=== PATIENT | male | born 1940 | race Caucasian/White ===

== ENCOUNTER 2017-01-20 13:10 | Inpatient (IN) | payer OTHER, MEDICARE ==
[~2017-01-20] VITALS: Ht 167.6 cm; Wt 97.1 kg
[2017-01-20] VITALS (11 sets, daily range): BP systolic 99–145; BP diastolic 55–84; PULSE 90–108; RESP 20–36; TEMP 98.2–98.7; O2SAT 90–99
[~2017-01-20 13:10] MED LIST: 1-ME1LIQ PO; ARIC5TAB PO; CITA20TA4 PO; HYDR-2768 PO; HYDR10TA23 PO; LEVO125T3 PO; LEXA10TA PO; LISI40TA PO; METF500 PO; NAME10TA PO; OMEP20TA39 PO; PRED10PA PO; SIMV20 PO; TAMS0.4C4; VITA20002 PO; [UNRECOGNIZED DRUG - CODE] PO
--- NOTE | 2017-01-20 13:39 | PD ---
HPI Chief Complaint: Respiratory Symptoms Time Seen by Provider: 13:25 Travel History International Travel<30 days: No Contact w/Intl Traveler<30days: No Traveled to known affect area: No History of Present Illness HPI 76-year-old male with history of COPD who presents with his for evaluation of wheezing, cough, shortness of breath. Symptoms started 1 week ago, gradually progressed since then. He is on prednisone chronically 5 mgBID with his primary care physician increased to 40 mg starting yesterday. He was also started on levofloxacin yesterday. His symptoms worsened today which prompted evaluation. He reports a cough with green sputum production. He denies chest pain, fevers or chills, recent travel, calf swelling, abdominal pain, nausea or vomiting. He uses a CPAP at night but is found himself wearing it for most of the day over the past week. He has no other complaints at this time. PFSH Past Medical History Asthma: Yes Anxiety: Yes Depression: Yes Cancer: No Cardiovascular Problems: No High Cholesterol: Yes Chemotherapy: No Chest Pain: Yes COPD: Yes (02 dependent and cpap machine ) Dementia: Yes Diabetes: Yes Patient Takes Glucophage: Yes (01/20/17 0900) Endocrine: No Genitourinary: No Hepatitis: No Hiatal Hernia: Yes Hypertension: Yes Immune Disorder: No Musculoskeletal: Yes (ARTHRITIS) Neurologic: Yes (DEMENTIA) Psychiatric: No Reproductive: No Respiratory: Yes (PULMONARY HTN) Radiation Therapy: No Thyroid Disease: Yes (HYPO) ?: Not Past Surgical History Abdominal Surgery: Yes (UMB. HERNIA REPAIR) AICD: No Eye Surgery: Yes (BILAT. CARARCT SX) Joint Replacement: No Oral Surgery: Yes (TONSILS) Pacemaker: No Tonsillectomy: Yes Other Surgery: Yes Social History Alcohol Use: Yes (OCC) Tobacco Use: No Substance Use: No Allergies-Medications (Allergen,Severity, Reaction): Coded Allergies: Penicillins (Verified Allergy, Unknown, 01/20/17) cephalexin (Verified Allergy, Unknown, 01/20/17) codeine (Unverified Allergy, Unknown, 01/20/17) Reported Meds & Prescriptions Reported Meds & Active Scripts Active Reported Lipitor (Atorvastatin Calcium) 20 Mg Tab 20 Mg PO HS Omeprazole 20 Mg Tab 20 Mg PO DAILY Celexa (Citalopram Hydrobromide) 20 Mg Tab 20 Mg PO DAILY Amlodipine (Amlodipine Besylate) 10 Mg Tab 10 Mg PO DAILY Aricept (Donepezil HCl) 5 Mg Tablet 5 Mg PO HS Lisinopril 40 Mg Tab 40 Mg PO DAILY Risperdal (Risperidone) 0.25 Mg Tab 0.25 Mg PO BID Tamsulosin (Tamsulosin HCl) 0.4 Mg Cap 0.4 Mg PO DAILY Take once a day 30 minutes after the same meal each day Loperamide Liq (Loperamide HCl) 1 Mg/7.5 Ml Liq 1 Mg PO PRN Namenda (Memantine) 10 Mg Tab 10 Mg PO BID Hydralazine HCl 10 Mg Tablet 10 Mg PO BID Hydrochlorothiazide 25 Mg Tab 25 Mg PO DAILY Ipratropium Neb (Ipratropium [place]) 0.5 Mg/2.5 Ml Amp 0.5 Mg NEB BID Claritin (Loratadine) 10 Mg Tablet 10 Mg PO DAILY Advair Diskus Inh (Fluticasone-Salmeterol Inh) 500-50 Mcg/Blist Aer 1 Puff INH BID Rinse mouth after use. Ventolin Hfa 18 GM Inh (Albuterol Sulfate) 90 Mcg/Act Aer 2 Puff INH Q4H PRN Levothyroxine (Levothyroxine Sodium) 112 Mcg Tab 112 Mcg PO DAILY Metformin (Metformin HCl) 500 Mg Tab 500 Mg PO DAILY With a meal Albuterol Neb (Albuterol Sulfate) 2.5 Mg/3 Ml Neb 2.5 Mg NEB QID PRN Tessalon Perles (Benzonatate) 100 Mg Cap 100 Mg PO TID PRN Levaquin (Levofloxacin) 500 Mg Tablet 500 Mg PO DAILY 10 Days Stop date: 01/29/2017 Prednisone 10 Mg Tab PO DAILY Titrating dose: 4 tabs (40mg) on days 1,2,3, then 3 tabs (30mg) on days 4,5,6 and then 1 tab twice a day Review of Systems Except as stated in HPI: all other systems reviewed are Neg Physical Exam Narrative GENERAL: This is a well-nourished male who appears acutely tachypneic, speaking in partial sentences. SKIN: Warm and dry. HEAD: Atraumatic. Normocephalic. EYES: Pupils equal and round. No scleral icterus. No injection or drainage. ENT: No nasal bleeding or discharge. Mucous membranes pink and moist. NECK: Trachea midline. No JVD. CARDIOVASCULAR: Regular rate and rhythm. No murmur appreciated. RESPIRATORY: Tachypneic, there is inspiratory and expiratory wheezing bilaterally with a prolonged expiratory phase. GASTROINTESTINAL: Abdomen soft, non-tender, nondistended. Hepatic and splenic margins not palpable. MUSCULOSKELETAL: No obvious deformities. No edema. NEUROLOGICAL: Awake and alert. No obvious cranial nerve deficits. Motor grossly within normal limits. Normal speech. PSYCHIATRIC: Appropriate mood and affect; insight and judgment normal. Data Data Last Documented VS Vital Signs Date Time Temp Pulse Resp B/P (MAP) Pulse Ox O2 Delivery O2 Flow Rate FiO2 01/20/17 15:12 99 100 01/20/17 15:06 97 30 145/84 (104) BiPAP 01/20/17 13:44 2.00 01/20/17 13:13 98.2 Orders Orders Electrocardiogram (01/20/17 ) Complete Blood Count With Diff (01/20/17 13:36) Comprehensive Metabolic Panel (01/20/17 13:36) B-Type Natriuretic Peptide (01/20/17 13:36) Act Partial Throm Time (Ptt) (01/20/17 13:36) Prothrombin Time / Inr (Pt) (01/20/17 13:36) Magnesium (Mg) (01/20/17 13:36) Ckmb (Isoenzyme) Profile (01/20/17 13:36) Troponin I (01/20/17 13:36) Iv Access Insert/Monitor (01/20/17 13:36) Electrocardiogram (01/20/17 13:36) Ecg Monitoring (01/20/17 13:36) Oximetry (01/20/17 13:36) Oxygen Administration (01/20/17 13:36) Chest, Single Ap (01/20/17 13:36) Sodium Chloride 0.9% Flush (Ns Flush) (01/20/17 13:45) Methylprednisolone So Succ Inj (Solumedr (01/20/17 13:45) Albuterol-Ipratropium Neb (Duoneb Neb) (01/20/17 13:45) Arterial Blood Gas (Abg) (01/20/17 13:39) Aztreonam Inj (Azactam Inj) (01/20/17 14:46) Levofloxacin 750 Mg Premix Inj (Levaquin (01/20/17 14:46) Resp Bipap / Cpap Non Invas Vt (01/20/17 14:49) Lactic Acid Sepsis Protocol (01/20/17 14:53) Blood Culture (01/20/17 14:53) Sodium Chlor 0.9% 1000 Ml Inj (Ns 1000 M (01/20/17 14:53) Admit Order (Ed Use Only) (01/20/17 15:36) Labs Laboratory Tests Test 01/20/17 13:45 01/20/17 13:50 01/20/17 15:00 White Blood Count 15.2 TH/MM3 Red Blood Count 5.28 MIL/MM3 Hemoglobin 15.0 GM/DL Hematocrit 45.8 % Mean Corpuscular Volume 86.8 FL Mean Corpuscular Hemoglobin 28.3 PG Mean Corpuscular Hemoglobin Concent 32.6 % Red Cell Distribution Width 14.3 % Platelet Count 359 TH/MM3 Mean Platelet Volume 7.7 FL Neutrophils (%) (Auto) 85.0 % Lymphocytes (%) (Auto) 8.6 % Monocytes (%) (Auto) 6.1 % Eosinophils (%) (Auto) 0.1 % Basophils (%) (Auto) 0.2 % Neutrophils # (Auto) 12.9 TH/MM3 Lymphocytes # (Auto) 1.3 TH/MM3 Monocytes # (Auto) 0.9 TH/MM3 Eosinophils # (Auto) 0.0 TH/MM3 Basophils # (Auto) 0.0 TH/MM3 CBC Comment AUTO DIFF Prothrombin Time 11.3 SEC Prothromb Time International Ratio 1.0 RATIO Activated Partial Thromboplast Time 25.1 SEC Blood Urea Nitrogen 24 MG/DL Creatinine 1.33 MG/DL Random Glucose 114 MG/DL Total Protein 6.9 GM/DL Albumin 2.9 GM/DL Calcium Level 9.3 MG/DL Magnesium Level 2.2 MG/DL Alkaline Phosphatase 83 U/L Aspartate Amino Transf (AST/SGOT) 15 U/L Alanine Aminotransferase (ALT/SGPT) 25 U/L Total Bilirubin 0.6 MG/DL Sodium Level 139 MEQ/L Potassium Level 3.4 MEQ/L Chloride Level 98 MEQ/L Carbon Dioxide Level 29.0 MEQ/L Anion Gap 12 MEQ/L Estimat Glomerular Filtration Rate 52 ML/MIN Total Creatine Kinase 40 U/L Troponin I LESS THAN 0.02 NG/ML B-Type Natriuretic Peptide 21 PG/ML Blood Gas Puncture Site RT RADIAL Blood Gas Patient Temperature 98.6 Blood Gas HCO3 24 mmol/L Blood Gas Base Excess 1.4 mmol/L Blood Gas Oxygen Saturation 92 % Arterial Blood pH 7.50 Arterial Blood Partial Pressure CO2 32 mmHg Arterial Blood Partial Pressure O2 63 mmHG Arterial Blood Oxygen Content 19.3 Vol % Arterial Blood Carboxyhemoglobin 1.4 % Arterial Blood Methemoglobin 0.6 % Blood Gas Hemoglobin 14.9 G/DL Oxygen Delivery Device NASAL CANNULA Blood Gas Liter Flow 2 L/M MDM Medical Decision Making Medical Screen Exam Complete: Yes Emergency Medical Condition: Yes Medical Record Reviewed: Yes Interpretation(s) EKG reveals sinus rhythm Chest x-ray CONCLUSION: Questionable airspace opacity in the right midlung zone. No other acute finding is identified. Suggest followup chest x-ray to confirm resolution or chest CT for further evaluation. Differential Diagnosis COPD exacerbation, pneumonia, pneumothorax, reactive airway disease, CHF, pulmonary edema, pleural effusion, acute coronary syndrome, pulmonary embolism Narrative Course 76-year-old male with history of COPD presents with one-week history of gradually worsening wheezing, shortness of breath, productive cough. On examination he has diffuse wheezing, prolonged expiratory phase, oxygen saturation 92% on 2 L of oxygen, tachypneic. The patient will be placed on ECG monitoring and pulse oximetry. A 12-lead EKG will be obtained. Plan is for basic labwork, ABG, chest x-ray. He'll be given 3 rounds of DuoNeb therapy, 125 mg IV Solu-Medrol. He will be monitored closely. Chest x-ray reveals opacity in the right midlung zone. The patient was given aztreonam, Levaquin to cover for community acquired pneumonia he is allergic to penicillin, Keflex. The patient had worsening dyspnea after DuoNeb therapy and therefore the patient is being started on BiPAP. Upon reexamination the patient feels significantly improved, his work of breathing is improved, oxygen saturation is 99%. The patient is being admitted , discussed with Dr. Colon who is agreeable. Procedures EKG Prior to Arrival: Yes Diagnosis Primary Impression: Community acquired pneumonia Qualified Codes: J18.1 - Lobar pneumonia, unspecified organism Additional Impression: COPD exacerbation Admitting Information Admitting Physician Requests: Admit Nando Manrique Jan 20, 2017 13:39
[2017-01-20] MEDS: RESP: ALBUTEROL 2.5 MG/IPRATROPIUM 0.5 MG NEB (SCH) INH ×3 (13:41→21:57)
[2017-01-20] MEDS ORDERED: SODIUM CHLORIDE 0.9% FLUSH 10 ML FLUSH IVF PRN (13:45)
[2017-01-20] MEDS ORDERED: methylPREDNISolone SOD SUCC 125 MG/2 ML VIAL IV PUSH ONE (13:45)
[2017-01-20] MEDS ORDERED: IPRA0.02 NEB (13:58)
[2017-01-20] MEDS ORDERED: AMLO10TA2 PO (13:58)
[2017-01-20] MEDS ORDERED: ALBU0.08 NEB (13:58)
[2017-01-20] MEDS ORDERED: RISP.25 PO (13:58)
[2017-01-20] MEDS ORDERED: LEVA500T20 PO (13:58)
[2017-01-20] MEDS ORDERED: LISI40TA PO (13:58)
[2017-01-20] MEDS ORDERED: CLAR10TA7 PO (13:58)
[2017-01-20] MEDS ORDERED: LIPI20TA PO (13:58)
[2017-01-20] MEDS ORDERED: HYDR-3798 PO (13:58)
[2017-01-20] MEDS ORDERED: BENZ100 PO (13:58)
[2017-01-20] MEDS ORDERED: OMEP20TA PO (13:58)
[2017-01-20] MEDS ORDERED: HYDR25TA5 PO (13:58)
[2017-01-20] MEDS ORDERED: VENTAER INH (13:58)
[2017-01-20] MEDS ORDERED: METF500T PO (13:58)
[2017-01-20] MEDS ORDERED: NAME10TA PO (13:58)
[2017-01-20] MEDS ORDERED: CELE20TA PO (13:58)
[2017-01-20] MEDS ORDERED: LEVO112T2 PO (13:58)
[2017-01-20] MEDS ORDERED: ADVA500A INH (13:58)
[2017-01-20] MEDS ORDERED: LOPE1SUS PO (13:58)
[2017-01-20] MEDS ORDERED: ARIC5TAB2 PO (13:58)
[2017-01-20] MEDS ORDERED: PRED10 PO (13:58)
[2017-01-20] MEDS ORDERED: TAMS0.4C4 PO (13:58)
[2017-01-20 14:02] LABS: BLOOD GAS BASE EXCESS 1.4 mmol/L (-2-2); BLOOD GAS CARBOXYHEMOGLOBIN 1.4 % (0-4); BLOOD GAS HCO3 24 mmol/L (22-26); BLOOD GAS METHEMOGLOBIN 0.6 % (0-2); BLOOD GAS O2 HGB SATURATION 92 % (90-100); BLOOD GAS OXYGEN CONTENT 19.3 Vol % (12.0-20.0); BLOOD GAS PCO2 32 mmHg (38-42); BLOOD GAS PO2 63 mmHG (61-120); BLOOD GAS TOTAL HGB 14.9 G/DL (12.0-16.0); CRITICAL VALUE NO; DRAW SITE RT RADIAL; LITER FLOW 2 L/M; NUMBER OF ARTERIAL PUNCTURES 1; OXYGEN DEVICE NASAL CANNULA; STAT YES; TEMP CORR TO 98.6; ULNAR PULSE PRESENT
[2017-01-20 14:15] LABS: AUTOMATED NEUTROPHIL # 12.9 TH/MM3 (1.8-7.7); BASOPHIL % 0.2 % (0.0-2.0); EOSINOPHIL % 0.1 % (0.0-4.0); HEMATOCRIT 45.8 % (39.0-51.0); LYMPH % 8.6 % (9.0-44.0); LYMPHOCYTE # 1.3 TH/MM3 (1.0-4.8); MEAN CELL VOLUME 86.8 FL (80.0-100.0); MEAN CORPUSCULAR HEMOGLOBIN 28.3 PG (27.0-34.0); MEAN CORPUSCULAR HGB CONC 32.6 % (32.0-36.0); MONO % 6.1 % (0.0-8.0); PLATELET COUNT 359 TH/MM3 (150-450); RED BLOOD COUNT 5.28 MIL/MM3 (4.50-5.90); RED CELL DISTRIBUTION WIDTH 14.3 % (11.6-17.2); WHITE BLOOD COUNT 15.2 TH/MM3 (4.0-11.0)
[2017-01-20 14:18] LABS: HEMO FLAGS AUTO DIFF
[2017-01-20 14:26] LABS: APTT (PATIENT) 25.1 SEC (24.3-30.1); PROTHROMBIN TIME - PATIENT 11.3 SEC (9.8-11.6)
--- NOTE | 2017-01-20 14:39 | RADRPT ---
EXAM DATE/TIME: 01/20/2017 13:49 [facility] COMPARISON: CHEST SINGLE AP, May 30, 2015, 18:59. INDICATIONS : Shortness of breath. MEDICAL HISTORY : Chronic obstructive pulmonary disease. SURGICAL HISTORY : None. ENCOUNTER: Initial ACUITY: 1 day PAIN SCORE: 0/10 LOCATION: Bilateral chest FINDINGS: Portable AP view of the chest demonstrates a normal-sized cardiac silhouette calcification of the aor ta. There is questionable airspace opacity in the right midlung zone. No effusion or pneumothorax is identified. The bones and soft tissues demonstrate no acute finding. CONCLUSION: Questionable airspace opacity in the right midlung zone. No other acute finding is identified. Sugges t followup chest x-ray to confirm resolution or chest CT for further evaluation. Ariel Julien MD on January 20, 2017 at 14:36 Board Certified Radiologist. This report was verified electronically.
[2017-01-20 14:43] LABS: ANION GAP 12 MEQ/L (5-15); AST (GOT) 15 U/L (15-37); BLOOD UREA NITROGEN 24 MG/DL (7-18); CHLORIDE 98 MEQ/L (98-107); GLOMERULAR FILTRATION RATE 52 ML/MIN (>89); MAGNESIUM 2.2 MG/DL (1.5-2.5); POTASSIUM 3.4 MEQ/L (3.5-5.1); SODIUM (NA) 139 MEQ/L (136-145)
[2017-01-20 14:44] LABS: ALT (GPT) 25 U/L (12-78)
[2017-01-20] MEDS ORDERED: LEVOFLOXACIN 750 MG PREMIX INJ 150 ML IV STA (14:46)
[2017-01-20] MEDS ORDERED: AZTREONAM INJ 2,000 MG in SODIUM CHLORIDE 0.9% INJ 100 ML IV STA (14:46)
[2017-01-20 14:48] LABS: ALKALINE PHOSPHATASE 83 U/L (45-117); TOTAL BILIRUBIN ADULT 0.6 MG/DL (0.2-1.0)
[2017-01-20 14:51] LABS: CREATINE KINASE 40 U/L (39-308)
[2017-01-20] MEDS ORDERED: SODIUM CHLOR 0.9% 1000 ML INJ 1,000 ML IV SCH ×2 (14:53→16:35)
--- NOTE | 2017-01-20 15:29 | PD ---
Data Data Last Documented VS Vital Signs Date Time Temp Pulse Resp B/P (MAP) Pulse Ox O2 Delivery O2 Flow Rate FiO2 01/20/17 15:12 99 100 01/20/17 15:06 97 30 145/84 (104) BiPAP 01/20/17 13:44 2.00 01/20/17 13:13 98.2 Orders Orders Electrocardiogram (01/20/17 ) Complete Blood Count With Diff (01/20/17 13:36) Comprehensive Metabolic Panel (01/20/17 13:36) B-Type Natriuretic Peptide (01/20/17 13:36) Act Partial Throm Time (Ptt) (01/20/17 13:36) Prothrombin Time / Inr (Pt) (01/20/17 13:36) Magnesium (Mg) (01/20/17 13:36) Ckmb (Isoenzyme) Profile (01/20/17 13:36) Troponin I (01/20/17 13:36) Iv Access Insert/Monitor (01/20/17 13:36) Electrocardiogram (01/20/17 13:36) Ecg Monitoring (01/20/17 13:36) Oximetry (01/20/17 13:36) Oxygen Administration (01/20/17 13:36) Chest, Single Ap (01/20/17 13:36) Sodium Chloride 0.9% Flush (Ns Flush) (01/20/17 13:45) Methylprednisolone So Succ Inj (Solumedr (01/20/17 13:45) Albuterol-Ipratropium Neb (Duoneb Neb) (01/20/17 13:45) Arterial Blood Gas (Abg) (01/20/17 13:39) Aztreonam Inj (Azactam Inj) (01/20/17 14:46) Levofloxacin 750 Mg Premix Inj (Levaquin (01/20/17 14:46) Resp Bipap / Cpap Non Invas Vt (01/20/17 14:49) Lactic Acid Sepsis Protocol (01/20/17 14:53) Blood Culture (01/20/17 14:53) Sodium Chlor 0.9% 1000 Ml Inj (Ns 1000 M (01/20/17 14:53) Labs Laboratory Tests Test 01/20/17 13:45 01/20/17 13:50 01/20/17 15:00 White Blood Count 15.2 TH/MM3 Red Blood Count 5.28 MIL/MM3 Hemoglobin 15.0 GM/DL Hematocrit 45.8 % Mean Corpuscular Volume 86.8 FL Mean Corpuscular Hemoglobin 28.3 PG Mean Corpuscular Hemoglobin Concent 32.6 % Red Cell Distribution Width 14.3 % Platelet Count 359 TH/MM3 Mean Platelet Volume 7.7 FL Neutrophils (%) (Auto) 85.0 % Lymphocytes (%) (Auto) 8.6 % Monocytes (%) (Auto) 6.1 % Eosinophils (%) (Auto) 0.1 % Basophils (%) (Auto) 0.2 % Neutrophils # (Auto) 12.9 TH/MM3 Lymphocytes # (Auto) 1.3 TH/MM3 Monocytes # (Auto) 0.9 TH/MM3 Eosinophils # (Auto) 0.0 TH/MM3 Basophils # (Auto) 0.0 TH/MM3 CBC Comment AUTO DIFF Prothrombin Time 11.3 SEC Prothromb Time International Ratio 1.0 RATIO Activated Partial Thromboplast Time 25.1 SEC Blood Urea Nitrogen 24 MG/DL Creatinine 1.33 MG/DL Random Glucose 114 MG/DL Total Protein 6.9 GM/DL Albumin 2.9 GM/DL Calcium Level 9.3 MG/DL Magnesium Level 2.2 MG/DL Alkaline Phosphatase 83 U/L Aspartate Amino Transf (AST/SGOT) 15 U/L Alanine Aminotransferase (ALT/SGPT) 25 U/L Total Bilirubin 0.6 MG/DL Sodium Level 139 MEQ/L Potassium Level 3.4 MEQ/L Chloride Level 98 MEQ/L Carbon Dioxide Level 29.0 MEQ/L Anion Gap 12 MEQ/L Estimat Glomerular Filtration Rate 52 ML/MIN Total Creatine Kinase 40 U/L Troponin I LESS THAN 0.02 NG/ML B-Type Natriuretic Peptide 21 PG/ML Blood Gas Puncture Site RT RADIAL Blood Gas Patient Temperature 98.6 Blood Gas HCO3 24 mmol/L Blood Gas Base Excess 1.4 mmol/L Blood Gas Oxygen Saturation 92 % Arterial Blood pH 7.50 Arterial Blood Partial Pressure CO2 32 mmHg Arterial Blood Partial Pressure O2 63 mmHG Arterial Blood Oxygen Content 19.3 Vol % Arterial Blood Carboxyhemoglobin 1.4 % Arterial Blood Methemoglobin 0.6 % Blood Gas Hemoglobin 14.9 G/DL Oxygen Delivery Device NASAL CANNULA Blood Gas Liter Flow 2 L/M [facility] Supervised Visit with HONEY: Yes Narrative Course The history, exam, and medical decision-making in the associated mid-level provider note were completed with my assistance. I reviewed and agree with the findings presented. I attest that I had a [id number] encounter with the patient on the same day, and personally performed and documented my assessment and findings in the medical record. *My assessment and Findings: 76-year-old man with COPD presents with worsening COPD symptoms unresolved despite his home treatments. He is on daily prednisone. Saw his doctor yesterday but on more prednisone and antibiotics. He uses BiPAP during C Pap at night, but she been using it during the day as well. Despite this is not improved second the emergency department today. Initial trial of medications was unsuccessful in alleviating his symptoms patient was placed on BiPAP. He looks much more comfortable on the BiPAP. Chest x-ray suggests pneumonia. Given antibiotics, steroids, breathing treatments, will be admitted to the ICU. Diagnosis Primary Impression: Community acquired pneumonia Qualified Codes: J18.1 - Lobar pneumonia, unspecified organism Additional Impression: COPD exacerbation Juan Ramon Fish MD Jan 20, 2017 15:29
[2017-01-20 15:54] LABS: BANDS 7 % (0-6); METAMYELOCYTES 3 % (0-1); MYELOCYTES 3 % (0-0); NEUTROPHIL # MANUAL DIFF 13.5 TH/MM3 (1.8-7.7); POLYS (SEG NEUTROPHILS) 76 % (16-70); WBC DIFF SAMPLE 100
[2017-01-20 15:56] LABS: OVALOCYTES 1+ (NORMAL); PLATELET ESTIMATE SMEAR NORMAL (NORMAL); PLATELET MORPHOLOGY ENLARGED (NORMAL)
[2017-01-20 15:57] LABS: SCAN/DIFF FINAL DIFF MANUAL
[2017-01-20] MEDS ORDERED: LORazepam 2 MG/ML VIAL IV PUSH ONE (16:15)
[2017-01-20 17:19] LABS: LACTIC ACID GHOST NOT REPORTABLE
[2017-01-20] MEDS ORDERED: MAGNESIUM HYDROXIDE SUSP 30 ML CUP PO PRN (18:00)
[2017-01-20] MEDS ORDERED: ACETAMINOPHEN 325 MG TAB PO PRN (18:00)
[2017-01-20] MEDS ORDERED: SENNOSIDES 8.6 MG TAB PO PRN (18:00)
[2017-01-20] MEDS ORDERED: LACTULOSE SYRUP 20 GM/30 ML CUP PO PRN (18:00)
[2017-01-20] MEDS ORDERED: GLUCAGON 1 MG/ML VIAL OTHER PRN (18:00)
[2017-01-20] MEDS ORDERED: MISCELLANEOUS NURSING INFORMATION XX SCH (18:00)
[2017-01-20] MEDS ORDERED: CHLORHEXIDINE GLUCONATE 2 % 1 PACK (2 CLOTHS) TOP PRN (18:00)
[2017-01-20] MEDS ORDERED: RESP: ALBUTEROL 2.5 MG/IPRATROPIUM 0.5 MG NEB (PRN) INH (18:00)
[2017-01-20] MEDS ORDERED: ONDANSETRON HCL 4 MG/2 ML VIAL IV PUSH PRN (18:00)
[2017-01-20] MEDS ORDERED: BISACODYL 10 MG SUPP RECTAL PRN (18:00)
[2017-01-20] MEDS ORDERED: SODIUM CHLORIDE 0.9% FLUSH 10 ML FLUSH IV FLUSH PRN (18:00)
[2017-01-20] MEDS ORDERED: DEXTROSE 50% IN WATER 50 ML VIAL(D50) IV PUSH PRN (18:00)
--- NOTE | 2017-01-20 18:55 | HHI.HP ---
[facility] Service Critical Care Medicine Primary Care Physician Tanya Medina Do, MD Admission Diagnosis COPD exacerbation, pneumonia Diagnosis: Travel History International Travel<30 Days: No Contact w/Intl Traveler <30 Da: No Traveled to Known Affected Are: No History of Present Illness This is a 76-year-old obese male with history of COPD who presents with his for evaluation of wheezing, cough, shortness of breath. The symptoms started 1 week ago, gradually progressed since then. 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 He is on prednisone chronically 5 mg BID with his primary care physician increased to 40 mg starting yesterday. He was also started on levofloxacin yesterday. His symptoms worsened today which prompted evaluation. He reports a cough with green sputum production. He denies chest pain, fevers or chills, recent travel, calf swelling, abdominal pain, nausea or vomiting. He uses a CPAP at night but is found himself wearing it for most of the day over the past week. He also utilizes home O2 @2LPM when necessary. In the ED the patient received antibiotics that she is a male, and levofloxacin, and was maintained on BiPAP at 100% which is currently being wean down to 40%. The patient has a medical history significant for dementia, and patient's spouse provided medical history. Critical care medicine was consulted. PFSH Past Medical History Asthma: Yes Anxiety: Yes Depression: Yes Cancer: No Cardiovascular Problems: No High Cholesterol: Yes Chemotherapy: No Chest Pain: Yes COPD: Yes (02 dependent and cpap machine ) Dementia: Yes Diabetes: Yes Patient Takes Glucophage: Yes (01/20/17 0900) Endocrine: No Genitourinary: No Hepatitis: No Hiatal Hernia: Yes Hypertension: Yes Immune Disorder: No Musculoskeletal: Yes (ARTHRITIS) Neurologic: Yes (DEMENTIA) Psychiatric: No Reproductive: No Respiratory: Yes (PULMONARY HTN) Radiation Therapy: No Thyroid Disease: Yes (HYPO) ?: Not Past Surgical History Abdominal Surgery: Yes (UMB. HERNIA REPAIR) AICD: No Eye Surgery: Yes (BILAT. CARARCT SX) Joint Replacement: No Oral Surgery: Yes (TONSILS) Pacemaker: No Tonsillectomy: Yes Other Surgery: Yes Social History Alcohol Use: Yes (OCC) Tobacco Use: No Substance Use: No Allergies-Medications (Allergen,Severity, Reaction): Coded Allergies: Penicillins (Verified Allergy, Unknown, 01/20/17) cephalexin (Verified Allergy, Unknown, 01/20/17) codeine (Unverified Allergy, Unknown, 01/20/17) Reported Meds & Prescriptions Reported Meds & Active Scripts Active Reported Lipitor (Atorvastatin Calcium) 20 Mg Tab 20 Mg PO HS Omeprazole 20 Mg Tab 20 Mg PO DAILY Celexa (Citalopram Hydrobromide) 20 Mg Tab 20 Mg PO DAILY Amlodipine (Amlodipine Besylate) 10 Mg Tab 10 Mg PO DAILY Aricept (Donepezil HCl) 5 Mg Tablet 5 Mg PO HS Lisinopril 40 Mg Tab 40 Mg PO DAILY Risperdal (Risperidone) 0.25 Mg Tab 0.25 Mg PO BID Tamsulosin (Tamsulosin HCl) 0.4 Mg Cap 0.4 Mg PO DAILY Take once a day 30 minutes after the same meal each day Loperamide Liq (Loperamide HCl) 1 Mg/7.5 Ml Liq 1 Mg PO PRN Namenda (Memantine) 10 Mg Tab 10 Mg PO BID Hydralazine HCl 10 Mg Tablet 10 Mg PO BID Hydrochlorothiazide 25 Mg Tab 25 Mg PO DAILY Ipratropium Neb (Ipratropium [place]) 0.5 Mg/2.5 Ml Amp 0.5 Mg NEB BID Claritin (Loratadine) 10 Mg Tablet 10 Mg PO DAILY Advair Diskus Inh (Fluticasone-Salmeterol Inh) 500-50 Mcg/Blist Aer 1 Puff INH BID Rinse mouth after use. Ventolin Hfa 18 GM Inh (Albuterol Sulfate) 90 Mcg/Act Aer 2 Puff INH Q4H PRN Levothyroxine (Levothyroxine Sodium) 112 Mcg Tab 112 Mcg PO DAILY Metformin (Metformin HCl) 500 Mg Tab 500 Mg PO DAILY With a meal Albuterol Neb (Albuterol Sulfate) 2.5 Mg/3 Ml Neb 2.5 Mg NEB QID PRN Tessalon Perles (Benzonatate) 100 Mg Cap 100 Mg PO TID PRN Levaquin (Levofloxacin) 500 Mg Tablet 500 Mg PO DAILY 10 Days Stop date: 01/29/2017 Prednisone 10 Mg Tab PO DAILY Titrating dose: 4 tabs (40mg) on days 1,2,3, then 3 tabs (30mg) on days 4,5,6 and then 1 tab twice a day Review of Systems Except as stated in HPI: all other systems reviewed are Neg Past Family Social History Allergies: Coded Allergies: Penicillins (Verified Allergy, Unknown, 01/20/17) cephalexin (Verified Allergy, Unknown, 01/20/17) codeine (Unverified Allergy, Unknown, 01/20/17) Uncoded Allergies: DIFFICULT AIRWAY (Adverse Reaction, Severe, 01/20/17) Physical Exam Vital Signs Vital Signs Date Time Temp Pulse Resp B/P (MAP) Pulse Ox O2 Delivery O2 Flow Rate FiO2 01/20/17 16:48 97 BiPAP 50 01/20/17 16:26 97 26 131/60 (83) 98 BiPAP 60 01/20/17 15:12 99 100 01/20/17 15:06 97 30 145/84 (104) BiPAP 100 01/20/17 13:44 93 Nasal Cannula 2.00 01/20/17 13:38 92 Nasal Cannula 2.00 01/20/17 13:25 92 Nasal Cannula 2.00 01/20/17 13:21 87 Room Air 01/20/17 13:13 98.2 108 36 99/55 (70) 90 Room Air Physical Exam GENERAL: Obese elderly male gentleman, in mild distress. On BiPAP, with a respiratory rate currently at 28. SKIN: Warm and dry. HEAD: Atraumatic. Normocephalic. EYES: Pupils equal and round. No scleral icterus. No injection or drainage. ENT: No nasal bleeding or discharge. Mucous membranes pink and moist. Uvula midline. Mallampati class IV NECK: Trachea midline. No JVD. CARDIOVASCULAR: Normal rate, regular rhythm. RESPIRATORY: No accessory muscle use. Clear to auscultation. Breath sounds equal bilaterally. Currently on BiPAP 04/06 GASTROINTESTINAL: Abdomen soft, protuberant, non-tender, nondistended. No guarding. Normoactive bowel sounds MUSCULOSKELETAL: Extremities without clubbing, cyanosis, or edema. No obvious deformities. Ultimate goal ecchymotic bruises noted bilateral upper extremities NEUROLOGICAL: GCS 14 .Awake and alert. Confused. RASS 0. No gross focal/ sensory deficits. Follows commands in all 4 extremities. Laboratory Laboratory Tests Test 01/20/17 13:45 01/20/17 13:50 01/20/17 15:00 01/20/17 17:20 White Blood Count 15.2 Red Blood Count 5.28 Hemoglobin 15.0 Hematocrit 45.8 Mean Corpuscular Volume 86.8 Mean Corpuscular Hemoglobin 28.3 Mean Corpuscular Hemoglobin Concent 32.6 Red Cell Distribution Width 14.3 Platelet Count 359 Mean Platelet Volume 7.7 Neutrophils (%) (Auto) 85.0 Lymphocytes (%) (Auto) 8.6 Monocytes (%) (Auto) 6.1 Eosinophils (%) (Auto) 0.1 Basophils (%) (Auto) 0.2 Neutrophils # (Auto) 12.9 Lymphocytes # (Auto) 1.3 Monocytes # (Auto) 0.9 Eosinophils # (Auto) 0.0 Basophils # (Auto) 0.0 CBC Comment AUTO DIFF Differential Total Cells Counted 100 Neutrophils % (Manual) 76 Band Neutrophils % 7 Lymphocytes % 8 Monocytes % 3 Neutrophils # (Manual) 13.5 Metamyelocytes 3 Myelocytes 3 Differential Comment FINAL DIFF MANUAL Atypical Lymphocytes Platelet Estimate NORMAL Platelet Morphology Comment ENLARGED Ovalocytes 1+ Prothrombin Time 11.3 Prothromb Time International Ratio 1.0 Activated Partial Thromboplast Time 25.1 Blood Urea Nitrogen 24 Creatinine 1.33 Random Glucose 114 Total Protein 6.9 Albumin 2.9 Calcium Level 9.3 Magnesium Level 2.2 Alkaline Phosphatase 83 Aspartate Amino Transf (AST/SGOT) 15 Alanine Aminotransferase (ALT/SGPT) 25 Total Bilirubin 0.6 Sodium Level 139 Potassium Level 3.4 Chloride Level 98 Carbon Dioxide Level 29.0 Anion Gap 12 Estimat Glomerular Filtration Rate 52 Total Creatine Kinase 40 Troponin I LESS THAN 0.02 B-Type Natriuretic Peptide 21 Blood Gas Puncture Site RT RADIAL Blood Gas Patient Temperature 98.6 Blood Gas HCO3 24 Blood Gas Base Excess 1.4 Blood Gas Oxygen Saturation 92 Arterial Blood pH 7.50 Arterial Blood Partial Pressure CO2 32 Arterial Blood Partial Pressure O2 63 Arterial Blood Oxygen Content 19.3 Arterial Blood Carboxyhemoglobin 1.4 Arterial Blood Methemoglobin 0.6 Blood Gas Hemoglobin 14.9 Oxygen Delivery Device NASAL CANNULA Blood Gas Liter Flow 2 Lactic Acid Level 7.3 Date/Time Source Procedure Growth Status 01/20/17 15:05 Blood Peripheral Aerobic Blood Culture Pending Received 01/20/17 15:05 Blood Peripheral Anaerobic Blood Culture Pending Received Result Diagram: 01/20/17 1345 01/20/17 1345 Imaging Last Impressions Chest X-Ray 01/20/17 1336 Signed Impressions: Service Date/Time: Friday, January 20, 2017 13:49 - CONCLUSION: Questionable airspace opacity in the right midlung zone. No other acute finding is identified. Suggest followup chest x-ray to confirm resolution or chest CT for further evaluation. Ariel Julien MD Septic Shock Reassessment Heart: Regular rate and rhythm Lungs: Diminished Skin: Warm Peripheral Pulses: Bounding Right Radial Bounding Left Radial Capillary Refill: Brisk Caprini VTE Risk Assessment Caprini VTE Risk Assessment: No/Low Risk (score <= 1) Caprini Risk Assessment Model Point Value = 1 Point Value = 2 Point Value = 3 Point Value = 5 Age 41-60 Minor surgery BMI > 25 kg/m2 Swollen legs Varicose veins or History of unexplained or recurrent spontaneous Oral contraceptives or hormone replacement Sepsis (< 1 month) Serious lung disease, including pneumonia (< 1 month) Abnormal pulmonary function Acute myocardial infarction Congestive heart failure (< 1 month) History of inflammatory bowel disease Medical patient at bed rest Age 61-74 Arthroscopic surgery Major open surgery (> 45 min) Laparoscopic surgery (> 45 min) Malignancy Confined to bed (> 72 hours) Immobilizing plaster cast Central venous access Age >= 75 History of VTE Family history of VTE Factor V Leiden Prothrombin [id number] Lupus anticoagulant Anticardiolipin antibodies Elevated serum homocysteine Heparin-induced thrombocytopenia Other congenital or acquired thrombophilia Stroke (< 1 month) Elective arthroplasty Hip, pelvis, or leg fracture Acute spinal cord injury (< 1 month) Prophylaxis Regimen Total Risk Factor Score Risk Level Prophylaxis Regimen 0-1 Low Early ambulation 2 Moderate Order ONE of the following: *Sequential Compression Device (SCD) *Heparin 5000 units SQ BID 3-4 Higher Order ONE of the following medications: *Heparin 5000 units SQ TID *Enoxaparin/Lovenox 40 mg SQ daily (WT < 150 kg, CrCl > 30 mL/min) *Enoxaparin/Lovenox 30 mg SQ daily (WT < 150 kg, CrCl > 10-29 mL/min) *Enoxaparin/Lovenox 30 mg SQ BID (WT < 150 kg, CrCl > 30 mL/min) AND/OR *Sequential Compression Device (SCD) 5 or more Highest Order ONE of the following medications: *Heparin 5000 units SQ TID (Preferred with Epidurals) *Enoxaparin/Lovenox 40 mg SQ daily (WT < 150 kg, CrCl > 30 mL/min) *Enoxaparin/Lovenox 30 mg SQ daily (WT < 150 kg, CrCl > 10-29 mL/min) *Enoxaparin/Lovenox 30 mg SQ BID (WT < 150 kg, CrCl > 30 mL/min) AND *Sequential Compression Device (SCD) Assessment and Plan Assessment and Plan Plan by systems: Neurologic: Alzheimer's Dementia Parkinsonian symptoms Depressive disorder Diabetic polyneuropathy Neurochecks per ICU protocol Document fall risk Continue Aricept,Memantine,and Risperidal- home medications Will hold Citalopram for now Avoid all sedative type medications Tylenol 650 mg every 6 hours for pain scale 1-10 Respiratory: COPD exacerbation Pulmonary hypertension Home O2 dependency Community-acquired pneumonia NAI Maintain O2 sat greater than 92%.-Currently on BiPAP 12/5 FiO2 40%. CO2 32, PaO2 on 2 LPM N/C 63 Repeat Abg on BIPAP 01/20 chest x-ray airspace opacity right midlung zone Methylprednisolone 40 mg twice a day Continue Tessalon Pearls PRN Duo nebs every 6 hours scheduled, every 2 hours when necessary Patient has known difficult airway access, family has been instructed that if emergent intubation is required the possibility of emergency tracheostomy may occur Cardiovascular: Hypertension Dyslipidemia Maintain MAP greater than 65mmHg Will hold patient antihypertensive meds at this time, will resume when clinically indicated Continue atorvastatin Renal: BPH Continue patient's home medication Tamulosin -- Strict I/Os FEN/GI: Gentle hydration- Normal saline 42 cc/hour Nothing by mouth for now-on BiPAP and possible intubation may be required Bowel regimen Zofran for nausea Protonix GI prophylaxis Heme/ID: Community acquired pneumonia Leukocytosis Patient received in the ED , Atrezonam and Levaquin, bolused 1 L normal saline Initial lactic acid 7.3 Trend lactic acid Continue antibiotics Atrezonam and Levaquin Endocrine: Hypothyroidism Diabetes mellitus Continue levothyroxine 112 mcg patient's home dose Glucose monitoring per ICU protocol, low dose regimen -- SSI Prophylaxis: GI Prophylaxis Protonix DVT Prophylaxis -- SCDs Heparin 5000u BID Lines: Peripheral IVs providing adequate access Dispo: This patient remains critically ill with one or more organ systems which are or may become a threat to life. I have spent in excess of 30 minutes discontinuously in the care and management of this patient. This time is exclusive of procedures, and includes, but is not limited to, evaluation of the patient, review of the medical record, discussions with family, consultants, nursing staff, or respiratory therapy, and documentation in the medical record. Code Status Full Discussed Condition With Family, Dr. Fish, [employer] at bedside Mahsa Rodgers MD Jan 20, 2017 18:55
[2017-01-20] MEDS: HEPARIN SODIUM - SQ 10,000 UNITS/ML VIAL SQ SCH (19:49)
[2017-01-20] MEDS: SODIUM CHLORIDE 0.9% FLUSH 10 ML FLUSH IV FLUSH SCH (19:50)
[2017-01-20] MEDS: methylPREDNISolone SOD SUCC 40 MG/1 ML VIAL IV PUSH SCH (19:50)
[2017-01-20] MEDS: DOCUSATE SODIUM 50 MG/SENNA 8.6 MG TAB PO SCH (19:51)
[2017-01-20 19:59] LABS: BLOOD GAS BASE EXCESS 2.1 mmol/L (-2-2); BLOOD GAS CARBOXYHEMOGLOBIN 1.3 % (0-4); BLOOD GAS HCO3 25 mmol/L (22-26); BLOOD GAS METHEMOGLOBIN 1.2 % (0-2); BLOOD GAS O2 HGB SATURATION 93 % (90-100); BLOOD GAS OXYGEN CONTENT 18.6 Vol % (12.0-20.0); BLOOD GAS PCO2 35 mmHg (38-42); BLOOD GAS PO2 71 mmHg (61-120); BLOOD GAS TOTAL HGB 14.3 G/DL (12.0-16.0); CRITICAL VALUE NO; DRAW SITE RT RADIAL; LITER FLOW 4 L/M; NUMBER OF ARTERIAL PUNCTURES 1; OXYGEN DEVICE NASAL CANNULA; STAT YES; TEMP CORR TO 98.6; ULNAR PULSE PRESENT
[2017-01-20] MEDS: SODIUM CHLOR 0.9% 1000 ML INJ 1,000 ML IV SCH (20:09)
[2017-01-20] MEDS: INSULIN ASPART SUPPLEMENTAL SCALE SQ SCH (21:00)
[2017-01-20] MEDS: BUDESONIDE-FORMOTEROL 160/4.5 MCG INHALER INH SCH (21:15)
[2017-01-20] MEDS: risperiDONE 0.25 MG TAB PO SCH (21:16)
[2017-01-20] MEDS: DONEPEZIL HCL 5 MG TAB PO SCH (21:16)
[2017-01-20] MEDS: ATORVASTATIN 20 MG TAB PO SCH (21:17)
[2017-01-20] MEDS: MEMANTINE HCL 10 MG TAB PO SCH (21:17)
--- NOTE | 2017-01-20 21:19 | MB ---
cc: PAM TORRE DATE OF CONSULTATION: 01/20/2017 REQUESTING PHYSICIAN: Dr. Rodgers. REASON FOR CONSULTATION: HISTORY OF PRESENT ILLNESS: Mr. Lee is a pleasant 76 year-old male who is known to me from the office with a history of COPD, oxygen dependent. He uses C-PAP machine at home. He has some dementia. The patient was being maintained on oral prednisone 5 milligrams a day over the last week. His shortness of breath is getting worse. He has wheezing, cough, small amount of sputum production. No fevers or chills. He was seen by his primary care physician and was started on prednisone and antibiotics. He did not get better. He decided to come to the emergency room. The patient was seen by Dr. Rodgers. LABORATORY DATA: His blood gas showed pH 7.50, PCO2 32, O2 on two liters nasal cannula. WBC count 15.2, hemoglobin 15,000, hematocrit 45.8, MCV 86.8, MCH 28.3, MCHC 32.6, platelet count 359. Sodium 139, potassium 3.4, chloride 98, CO2 29, anion gap 12, BUN 24, creatinine 1.33. IMAGING STUDIES: Chest x-ray shows air space opacity in the right mid lung. PAST MEDICAL HISTORY: History of COPD, obstructive sleep apnea, dementia, hypertension, hiatal hernia, hypercholesterolemia. PAST SURGICAL HISTORY: Hiatal hernia surgery. MEDICATIONS: Levaquin 750 milligrams. Protonix 40 milligrams Levothyroxine 112 mcg a day. Flomax 0.4 milligrams a day. Aztreonam 2 grams q8 hours. Albuterol and atrovent nebulizer treatments. Solu-Medrol 40 milligrams q12 hours. Loratadine 10 mg twice a day. Risperidone 0.25 milligrams twice a day. Lipitor 20 milligrams at night time. Benzonatate 100 milligrams 3x a day. Heparin 5000 q12 hours. ALLERGIES CEPHALEXIN AND CODEINE SOCIAL HISTORY He is . History of smoking in the past. FAMILY HISTORY: Noncontributory. REVIEW OF SYSTEMS: He uses C-PAP machine and oxygen at night time. No DVT. PHYSICAL EXAMINATION: An obese male, mild short of breath. VITAL SIGNS: Blood pressure 132/61, heart rate 90, respiratory rate 22. HEENT: Pupils are equal and reactive to light, oral mucosa, nasal mucosa normal. NECK: JVP not raised. CHEST: He has distant breath sounds, mild wheezing. ABDOMEN: Obese, nontender. Bowel sounds present. EXTREMITIES: No edema. IMPRESSION COPD with exacerbation. Lung infiltrate. Dementia. Parkinson's disease. Obstructive sleep apnea. PLAN: I discussed with the patient, will continue with antibiotics, aerosol treatment with Albuterol and atrovent, IV Solu-Medrol. He will use C-PAP at nighttime. Oxygen to keep the saturation greater than 90%. Further treatment will depend on the course in the hospital. Thank you, Dr. Rodgers, for this consult. Pam Torre MD ADA/AMADOR /7:54 PM /8:36 PM
--- NOTE | 2017-01-20 23:46 | EKG ---
Date Performed: 01/20/2017 Time Performed: 13:32:32 PTAGE: 76 years EKG: Sinus rhythm LOW QRS VOLTAGE IN PRECORDIAL LEADS POSSIBLE RIGHT VENTRICULAR CONDUCTION DELAY PROBABLE INFERIOR MY OCARDIAL INFARCTION ABNORMAL ECG PREVIOUS TRACING : 01/20/2017 13.31 Compared to the previous tracing, now in sinus rhythm DOCTOR: Payam Garcia Interpretating Date/Time 01/20/2017 23:44:50
[2017-01-21] VITALS (17 sets, daily range): BP systolic 135–160; BP diastolic 63–77; PULSE 69–103; RESP 22–28; TEMP 98–98.6; O2SAT 92–95
[2017-01-21] MEDS: CHLORHEXIDINE GLUCONATE 2 % 1 PACK (2 CLOTHS) TOP SCH (01:11)
[2017-01-21] MEDS: AZTREONAM INJ 2,000 MG in SODIUM CHLORIDE 0.9% INJ 100 ML IV SCH ×4 (01:11→23:25)
[2017-01-21] MEDS: RESP: ALBUTEROL 2.5 MG/IPRATROPIUM 0.5 MG NEB (SCH) INH ×4 (04:02→21:05)
[2017-01-21] MEDS: HEPARIN SODIUM - SQ 10,000 UNITS/ML VIAL SQ SCH ×2 (04:45→17:17)
[2017-01-21] MEDS: LEVOTHYROXINE SODIUM 112 MCG TAB PO SCH (04:45)
--- NOTE | 2017-01-21 05:01 | RADRPT ---
EXAM DATE/TIME: 01/21/2017 04:01 [place] COMPARISON: CHEST SINGLE AP, January 20, 2017, 13:49. INDICATIONS : Shortness of breath, possible pulmonary disease. MEDICAL HISTORY : Chronic obstructive pulmonary disease. SURGICAL HISTORY : None. ENCOUNTER: Subsequent ACUITY: 2 days PAIN SCORE: 0/10 LOCATION: Bilateral chest FINDINGS: A single portable frontal view of the chest shows hypoinflation with mild atelectasis within the left base. No infiltrates or effusions. Heart is normal in size. Bony structures are unremarkable. CONCLUSION: Hypoinflation with mild left basilar atelectasis. No infiltrate. Germán Sewell Jr., MD on January 21, 2017 at 4:58 Board Certified Radiologist. This report was verified electronically.
[2017-01-21 05:07] LABS: HEMATOCRIT 41.6 % (39.0-51.0); MEAN CELL VOLUME 85.9 FL (80.0-100.0); MEAN CORPUSCULAR HEMOGLOBIN 28.1 PG (27.0-34.0); MEAN CORPUSCULAR HGB CONC 32.8 % (32.0-36.0); PLATELET COUNT 302 TH/MM3 (150-450); RED BLOOD COUNT 4.85 MIL/MM3 (4.50-5.90); RED CELL DISTRIBUTION WIDTH 14.1 % (11.6-17.2); REVIEW FLAG FINAL; WHITE BLOOD COUNT 14.1 TH/MM3 (4.0-11.0)
[2017-01-21 05:28] LABS: BLOOD GAS BASE EXCESS 3.3 mmol/L (-2-2); BLOOD GAS CARBOXYHEMOGLOBIN 1.3 % (0-4); BLOOD GAS HCO3 27 mmol/L (22-26); BLOOD GAS METHEMOGLOBIN 1.3 % (0-2); BLOOD GAS O2 HGB SATURATION 91 % (90-100); BLOOD GAS OXYGEN CONTENT 18.3 Vol % (12.0-20.0); BLOOD GAS PCO2 36 mmHg (38-42); BLOOD GAS PO2 66 mmHg (61-120); BLOOD GAS TOTAL HGB 14.2 G/DL (12.0-16.0); TEMP CORR TO 98.6
[2017-01-21 05:29] LABS: CRITICAL VALUE NO; DRAW SITE LT RADIAL; LITER FLOW 4 L/M; NUMBER OF ARTERIAL PUNCTURES 1; OXYGEN DEVICE NASAL CANNULA; STAT NO; ULNAR PULSE PRESENT
[2017-01-21 07:13] LABS: BICARBONATE 25.7 MEQ/L (21.0-32.0); MAGNESIUM 2.3 MG/DL (1.5-2.5); POTASSIUM 3.4 MEQ/L (3.5-5.1)
[2017-01-21] MEDS: INSULIN ASPART SUPPLEMENTAL SCALE SQ SCH ×4 (08:00→21:00)
--- NOTE | 2017-01-21 09:03 | HHI.CCPN ---
Subjective Remarks/Hospital Course This is a 76-year-old obese male with history of COPD who presents with his for evaluation of wheezing, cough, shortness of breath. The symptoms started 1 week ago, gradually progressed since then. 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 He is on prednisone chronically 5 mg BID with his primary care physician increased to 40 mg starting yesterday. He was also started on levofloxacin yesterday. His symptoms worsened today which prompted evaluation. He reports a cough with green sputum production. He denies chest pain, fevers or chills, recent travel, calf swelling, abdominal pain, nausea or vomiting. He uses a CPAP at night but is found himself wearing it for most of the day over the past week. He also utilizes home O2 @2LPM when necessary. In the ED the patient received antibiotics that she is a male, and levofloxacin, and was maintained on BiPAP at 100% which is currently being wean down to 40%. The patient has a medical history significant for dementia, and patient's spouse provided medical history. Critical care medicine was consulted. Subjective: 01/21: No acute events overnight. The patient has been weaned to oxygen at 4 L nasal cannula, no dyspneic episodes. O2 saturation greater than 92% throughout the night. Discussion with family, to include , CODE STATUS changed to DNR. Objective Vital Signs Date Time Temp Pulse Resp B/P (MAP) Pulse Ox O2 Delivery O2 Flow Rate FiO2 01/21/17 08:13 95 Nasal Cannula 4.00 01/21/17 06:00 78 24 147/69 (95) 01/21/17 04:00 98.6 01/20/17 22:00 40 Intake and Output 01/21/17 01/21/17 01/22/17 08:00 16:00 00:00 Intake Total 100 ml Balance 100 ml Result Diagram: 01/21/17 0415 01/21/17 0415 Other Results Laboratory Tests Test 01/20/17 13:50 01/20/17 19:50 01/21/17 05:02 Blood Gas Puncture Site RT RADIAL RT RADIAL LT RADIAL Blood Gas Patient Temperature 98.6 98.6 98.6 Blood Gas HCO3 24 mmol/L (22-26) 25 mmol/L (22-26) 27 mmol/L (22-26) Blood Gas Base Excess 1.4 mmol/L (-2-2) 2.1 mmol/L (-2-2) 3.3 mmol/L (-2-2) Blood Gas Oxygen Saturation 92 % (90-100) 93 % (90-100) 91 % (90-100) Arterial Blood pH 7.50 (7.380-7.420) 7.48 (7.380-7.420) 7.48 (7.380-7.420) Arterial Blood Partial Pressure CO2 32 mmHg (38-42) 35 mmHg (38-42) 36 mmHg (38-42) Arterial Blood Partial Pressure O2 63 mmHG (61-120) 71 mmHg (61-120) 66 mmHg (61-120) Arterial Blood Oxygen Content 19.3 Vol % (12.0-20.0) 18.6 Vol % (12.0-20.0) 18.3 Vol % (12.0-20.0) Arterial Blood Carboxyhemoglobin 1.4 % (0-4) 1.3 % (0-4) 1.3 % (0-4) Arterial Blood Methemoglobin 0.6 % (0-2) 1.2 % (0-2) 1.3 % (0-2) Blood Gas Hemoglobin 14.9 G/DL (12.0-16.0) 14.3 G/DL (12.0-16.0) 14.2 G/DL (12.0-16.0) Oxygen Delivery Device NASAL CANNULA NASAL CANNULA NASAL CANNULA Blood Gas Liter Flow 2 L/M 4 L/M 4 L/M Imaging Last Impressions Chest X-Ray 01/20/17 1336 Signed Impressions: Service Date/Time: Friday, January 20, 2017 13:49 - CONCLUSION: Questionable airspace opacity in the right midlung zone. No other acute finding is identified. Suggest followup chest x-ray to confirm resolution or chest CT for further evaluation. Ariel Julien MD Objective Remarks GENERAL: Obese elderly male gentleman, in no apparent distress. SKIN: Warm and dry. HEAD: Atraumatic. Normocephalic. EYES: Pupils equal and round. No scleral icterus. No injection or drainage. ENT: No nasal bleeding or discharge. Mucous membranes pink and moist. Uvula midline. Mallampati class IV NECK: Trachea midline. No JVD. CARDIOVASCULAR: Normal rate, regular rhythm. RESPIRATORY: No accessory muscle use. Clear to auscultation. Breath sounds equal bilaterally. Currently on is a cannulated 4 L GASTROINTESTINAL: Abdomen soft, protuberant, non-tender, nondistended. No guarding. Normoactive bowel sounds MUSCULOSKELETAL: Extremities without clubbing, cyanosis, or edema. No obvious deformities. Ultimate goal ecchymotic bruises noted bilateral upper extremities NEUROLOGICAL: GCS 14 .Awake and alert. Confused. RASS 0. No gross focal/ sensory deficits. Follows commands in all 4 extremities. A/P Assessment and Plan Plan by systems: Neurologic: Alzheimer's Dementia Parkinsonian symptoms Depressive disorder Diabetic polyneuropathy Neurochecks per ICU protocol Document fall risk Continue Aricept,Memantine,and Risperidal- home medications Will hold Citalopram for now Avoid all sedative type medications Tylenol 650 mg every 6 hours for pain scale 1-10 Respiratory: COPD exacerbation Pulmonary hypertension Home O2 dependency Community-acquired pneumonia NAI Maintain O2 sat greater than 92%.-Currently on BiPAP 12/5 FiO2 40%. CO2 32, PaO2 on 2 LPM N/C 63 Repeat Abg on BIPAP 9/20 chest x-ray airspace opacity right midlung zone Methylprednisolone 40 mg twice a day Continue Tessalon Pearls PRN Duo nebs every 6 hours scheduled, every 2 hours when necessary Patient has known difficult airway access, family has been instructed that if emergent intubation is required the possibility of emergency tracheostomy may occur Cardiovascular: Hypertension Dyslipidemia Maintain MAP greater than 65mmHg Systolic blood pressure 150s, resumption of patient antihypertensive medications Continue atorvastatin Renal: BPH Continue patient's home medication Tamulosin -- Strict I/Os FEN/GI: Gentle hydration- Normal saline 42 cc/hour Resume regular diet Bowel regimen Zofran for nausea Protonix GI prophylaxis Heme/ID: Community acquired pneumonia Leukocytosis Patient received in the ED , Atrezonam and Levaquin, bolused 1 L normal saline Initial lactic acid 7.3->4.2 Trend lactic acid Continue antibiotics Atrezonam and Levaquin Endocrine: Hypothyroidism Diabetes mellitus Continue levothyroxine 112 mcg patient's home dose Glucose monitoring per ICU protocol, low dose regimen -- SSI Prophylaxis: GI Prophylaxis Protonix DVT Prophylaxis -- SCDs Heparin 5000u BID Lines: Peripheral IVs providing adequate access Dispo: Level 2 Extensive discussion with Mrs. Lee which had previously discussed with all family members, with Ortega (RN) present, requests that patient be made DNR, due to patient's multiple comorbidities. CODE STATUS changed. Patient progressing well, no respiratory distress. Pulmonology following[facility] Plan transfer to floor. Physician Mahsa Sheth MD Jan 21, 2017 09:03
[2017-01-21] MEDS: methylPREDNISolone SOD SUCC 40 MG/1 ML VIAL IV PUSH SCH ×2 (09:38→21:39)
[2017-01-21] MEDS: PANTOPRAZOLE SODIUM 40 MG VIAL IV PUSH SCH (09:39)
[2017-01-21] MEDS: DOCUSATE SODIUM 50 MG/SENNA 8.6 MG TAB PO SCH ×2 (09:39→21:00)
[2017-01-21] MEDS: MEMANTINE HCL 10 MG TAB PO SCH ×2 (09:39→21:39)
[2017-01-21] MEDS: risperiDONE 0.25 MG TAB PO SCH ×2 (09:39→21:39)
[2017-01-21] MEDS: BUDESONIDE-FORMOTEROL 160/4.5 MCG INHALER INH SCH ×2 (09:39→21:38)
[2017-01-21] MEDS: TAMSULOSIN HCL 0.4 MG CAP PO SCH (09:39)
[2017-01-21] MEDS: SODIUM CHLORIDE 0.9% FLUSH 10 ML FLUSH IV FLUSH SCH ×2 (09:40→21:39)
[2017-01-21] MEDS: HYDROCHLOROTHIAZIDE 25 MG TAB PO SCH (09:55)
[2017-01-21] MEDS: LISINOPRIL 20 MG TAB PO SCH (09:55)
[2017-01-21] MEDS ORDERED: LORazepam 2 MG/ML VIAL IV PUSH ONE (14:00)
[2017-01-21] MEDS: LEVOFLOXACIN 750 MG PREMIX INJ 150 ML IV SCH (15:23)
--- NOTE | 2017-01-21 17:06 | HHI.PR ---
Subjective Remarks 76 YOWM with 02 dependant COPD,NAI, has lung infilt Used CPAP last night Up in chair Mild sob No CP Objective Vital Signs Vital Signs Date Time Temp Pulse Resp B/P (MAP) Pulse Ox O2 Delivery O2 Flow Rate FiO2 01/21/17 16:00 103 01/21/17 16:00 98.0 103 155/72 (99) 92 01/21/17 14:00 93 01/21/17 12:00 94 01/21/17 12:00 98.2 94 26 137/63 (87) 94 01/21/17 10:00 90 01/21/17 08:13 95 Nasal Cannula 4.00 01/21/17 08:00 98.6 74 26 159/73 (101) 94 01/21/17 08:00 74 01/21/17 06:00 78 24 147/69 (95) 93 01/21/17 06:00 78 01/21/17 05:00 88 26 160/77 (104) 92 01/21/17 04:00 96 01/21/17 04:00 98.6 96 26 135/64 (87) 92 01/21/17 03:00 69 24 143/67 (92) 94 01/21/17 02:00 77 01/21/17 02:00 77 24 139/65 (89) 94 01/21/17 01:24 94 Nasal Cannula 4.00 01/21/17 01:00 79 22 140/65 (90) 94 01/21/17 00:00 98.5 96 28 141/63 (89) 92 01/21/17 00:00 96 01/20/17 23:00 91 20 135/69 (91) 91 01/20/17 22:00 93 40 01/20/17 22:00 98.5 90 20 128/63 (84) 93 01/20/17 21:00 108 24 139/68 (91) 97 01/20/17 20:00 93 Nasal Cannula 4.00 01/20/17 20:00 98.3 103 20 139/69 (92) 97 01/20/17 19:03 01/20/17 19:00 98.7 103 20 129/60 (83) 98 01/20/17 18:37 93 26 132/61 (84) 97 BiPAP 50 I/O 9/2001/20/17 01/20/17 01/21/17 01/21/17 01/21/17 07:00 15:00 23:00 07:00 15:00 23:00 Intake Total 1250 ml 100 ml 100 ml Balance 1250 ml 100 ml 100 ml Intake IV Total 1250 ml 100 ml 100 ml # Voids 1 # Bowel Movements 0 Result Diagram: 01/21/17 0415 01/21/17 0415 Objective Remarks GENERAL: Obese Wm, mild sob SKIN: Warm and dry. HEAD: Normocephalic. EYES: No scleral icterus. No injection or drainage. NECK: Supple, trachea midline. No JVD or lymphadenopathy. CARDIOVASCULAR: Regular rate and rhythm without murmurs, gallops, or rubs. RESPIRATORY: Breath sounds equal bilaterally. No accessory muscle use. GASTROINTESTINAL: Abdomen soft, non-tender, nondistended. MUSCULOSKELETAL: No cyanosis, or edema. BACK: Nontender without obvious deformity. No CVA tenderness. A/P Assessment and Plan COPD Exac NAI Lung infilt HTN Dementia PLAN: Aerosol nebs IV Solumedrol 40 mg bid Cont Abx Supplement 02 CPAp at night Henrique Myers MD Jan 21, 2017 17:06
[2017-01-21] MEDS: SODIUM CHLOR 0.9% 1000 ML INJ 1,000 ML IV SCH (21:38)
[2017-01-21] MEDS: ATORVASTATIN 20 MG TAB PO SCH (21:39)
[2017-01-21] MEDS: DONEPEZIL HCL 5 MG TAB PO SCH (21:39)
[2017-01-21] MEDS: hydrALAZINE HCL 10 MG TAB PO SCH (21:39)
[2017-01-21] MEDS ORDERED: HALOPERIDOL 5 MG TAB PO ONE (23:15)
[2017-01-21] MEDS: MELATONIN 5 MG TAB PO SCH (23:25)
[2017-01-21] MEDS: BENZONATATE 100 MG CAP PO PRN (23:25)
[2017-01-22] VITALS (13 sets, daily range): BP systolic 144–173; BP diastolic 62–81; PULSE 77–119; RESP 16–40; TEMP 98.1–98.7; O2SAT 92–98
[2017-01-22] MEDS: RESP: ALBUTEROL 2.5 MG/IPRATROPIUM 0.5 MG NEB (SCH) INH ×4 (03:51→21:26)
[2017-01-22] MEDS: BENZONATATE 100 MG CAP PO PRN (03:58)
[2017-01-22] MEDS: CHLORHEXIDINE GLUCONATE 2 % 1 PACK (2 CLOTHS) TOP SCH (04:00)
[2017-01-22] MEDS: HEPARIN SODIUM - SQ 10,000 UNITS/ML VIAL SQ SCH ×2 (05:23→18:10)
[2017-01-22] MEDS: LEVOTHYROXINE SODIUM 112 MCG TAB PO SCH (05:23)
[2017-01-22 05:33] LABS: HEMATOCRIT 44.5 % (39.0-51.0); MEAN CELL VOLUME 86.6 FL (80.0-100.0); MEAN CORPUSCULAR HEMOGLOBIN 28.6 PG (27.0-34.0); PLATELET COUNT 339 TH/MM3 (150-450); RED BLOOD COUNT 5.14 MIL/MM3 (4.50-5.90); REVIEW FLAG FINAL; WHITE BLOOD COUNT 21.5 TH/MM3 (4.0-11.0)
[2017-01-22 05:55] LABS: BICARBONATE 25.2 MEQ/L (21.0-32.0); MAGNESIUM 2.2 MG/DL (1.5-2.5); POTASSIUM 3.4 MEQ/L (3.5-5.1)
[2017-01-22] MEDS: INSULIN ASPART SUPPLEMENTAL SCALE SQ SCH ×4 (08:00→21:05)
[2017-01-22] MEDS: LISINOPRIL 20 MG TAB PO SCH (08:40)
[2017-01-22] MEDS: TAMSULOSIN HCL 0.4 MG CAP PO SCH (08:40)
[2017-01-22] MEDS: HYDROCHLOROTHIAZIDE 25 MG TAB PO SCH (08:40)
[2017-01-22] MEDS: MEMANTINE HCL 10 MG TAB PO SCH ×2 (08:40→21:06)
[2017-01-22] MEDS: hydrALAZINE HCL 10 MG TAB PO SCH ×2 (08:41→21:07)
[2017-01-22] MEDS: risperiDONE 0.25 MG TAB PO SCH ×2 (08:41→21:06)
[2017-01-22] MEDS: PANTOPRAZOLE SODIUM 40 MG VIAL IV PUSH SCH (08:41)
[2017-01-22] MEDS: AZTREONAM INJ 2,000 MG in SODIUM CHLORIDE 0.9% INJ 100 ML IV SCH ×2 (08:41→15:48)
[2017-01-22] MEDS: DOCUSATE SODIUM 50 MG/SENNA 8.6 MG TAB PO SCH ×2 (08:41→21:00)
[2017-01-22] MEDS: SODIUM CHLORIDE 0.9% FLUSH 10 ML FLUSH IV FLUSH SCH ×2 (08:41→21:08)
[2017-01-22] MEDS: methylPREDNISolone SOD SUCC 40 MG/1 ML VIAL IV PUSH SCH ×2 (08:41→21:03)
[2017-01-22] MEDS: BUDESONIDE-FORMOTEROL 160/4.5 MCG INHALER INH SCH ×2 (08:41→21:01)
--- NOTE | 2017-01-22 08:56 | HHI.PR ---
Subjective Remarks In bed, sukh;ears with sob on BiPAP. at bedside. Patient says he feels sob, was noted desatting overnight and was placed on bipap. Patient has C PAP at home to use at night,. per in a process to chage CPAP cody as not functioning. Patient with some cough, productive of yellow sputum. No fever or chills. No n/v/d/c. Patient is on NC during the day. Objective Vitals Vital Signs Date Time Temp Pulse Resp B/P (MAP) Pulse Ox O2 Delivery O2 Flow Rate FiO2 01/22/17 08:33 95 Nasal Cannula 4.00 01/22/17 06:00 104 01/22/17 04:35 93 40 01/22/17 04:00 98.7 119 40 173/81 (111) 94 01/22/17 04:00 119 01/22/17 02:00 78 01/22/17 00:00 98.7 85 16 163/72 (102) 96 01/22/17 00:00 85 01/21/17 22:00 94 01/21/17 20:00 95 01/21/17 20:00 98.4 95 25 141/67 (91) 93 01/21/17 18:00 103 01/21/17 16:00 103 01/21/17 16:00 98.0 103 155/72 (99) 92 01/21/17 14:00 93 01/21/17 12:00 94 01/21/17 12:00 98.2 94 26 137/63 (87) 94 01/21/17 10:00 90 I/O 01/21/17 01/21/17 01/21/17 01/22/17 01/22/17 01/22/17 07:00 15:00 23:00 07:00 15:00 23:00 Intake Total 100 ml 100 ml 250 ml 1677 ml Balance 100 ml 100 ml 250 ml 1677 ml Intake IV Total 100 ml 100 ml 250 ml 1677 ml # Voids 1 2 3 # Bowel Movements 0 1 0 Result Diagram: 01/22/17 0427 01/22/17 0427 Imaging Last Impressions Chest X-Ray 01/22/17 0000 Signed Impressions: Service Date/Time: Sunday, January 22, 2017 09:38 - CONCLUSION: 1. Chronic appearing interstitial changes. Stable compared to previous. Landon Brunner MD Objective Remarks GENERAL: Obese elderly male gentleman, on bipap CARDIOVASCULAR: Normal rate, regular rhythm. RESPIRATORY: No accessory muscle use. decreased breath sounds. No wheezing. GASTROINTESTINAL: Abdomen soft, protuberant, non-tender, nondistended. No guarding. Normoactive bowel sounds MUSCULOSKELETAL: Extremities without clubbing, cyanosis, or edema. No obvious deformities. Ultimate goal ecchymotic bruises noted bilateral upper extremities NEUROLOGICAL: GCS 14 .Awake and alert. Confused. RASS 0. No gross focal/ sensory deficits. Follows commands in all 4 extremities. A/P Assessment and Plan Neurologic: Alzheimer's Dementia Parkinsonian symptoms Depressive disorder Diabetic polyneuropathy Neurochecks per ICU protocol Document fall risk Continue Aricept,Memantine,and Risperidal- home medications Will hold Citalopram for now Avoid all sedative type medications Tylenol 650 mg every 6 hours for pain scale 1-10 Respiratory: COPD exacerbation Pulmonary hypertension Home O2 dependency Community-acquired pneumonia NAI ( on CPAP at night at home) Maintain O2 sat greater than 92%.-Currently on BiPAP 12/5 FiO2 40%. CO2 32, PaO2 on 2 LPM N/C 63 Repeat Abg on BIPAP 9/20 chest x-ray airspace opacity right midlung zone Methylprednisolone 40 mg twice a day, taper steroids as tolerated. Continue Tessalon Pearls PRN Duo nebs every 6 hours scheduled, every 2 hours when necessary Patient has known difficult airway access, family has been instructed that if emergent intubation is required the possibility of emergency tracheostomy may occur. Code status was changed per family patient is now DNR. Cardiovascular: Hypertension Dyslipidemia Maintain MAP greater than 65mmHg Systolic blood pressure 150s, resumption of patient antihypertensive medications Continue atorvastatin Renal: BPH Continue patient's home medication Tamulosin -- Strict I/Os FEN/GI: Gentle hydration- Normal saline 42 cc/hour Resume regular diet Bowel regimen Zofran for nausea Protonix GI prophylaxis Heme/ID: Community acquired pneumonia Leukocytosis Patient received in the ED , Atrezonam and Levaquin, bolused 1 L normal saline Initial lactic acid 7.3->4.2 Trend lactic acid Continue antibiotics Atrezonam and Levaquin Endocrine: Hypothyroidism Diabetes mellitus Continue levothyroxine 112 mcg patient's home dose Glucose monitoring per ICU protocol, low dose regimen -- SSI Prophylaxis: GI Prophylaxis Protonix DVT Prophylaxis -- SCDs Heparin 5000u BI CODE STATUS DNR DC plan: Patient improving. Pulmonology following. Transfer to med surg floor. Needs SNF. Will also consult palliative care for goals of care. Teagan Montes MD Jan 22, 2017 08:56
[2017-01-22] MEDS ORDERED: CITALOPRAM HYDROBROMIDE 20 MG TAB PO SCH (09:00)
--- NOTE | 2017-01-22 10:22 | RADRPT ---
EXAM DATE/TIME: 01/22/2017 09:38 [facility] COMPARISON: CHEST SINGLE AP, January 21, 2017, 4:01. INDICATIONS : Cough, short of breath. MEDICAL HISTORY : Chronic obstructive pulmonary disease. SURGICAL HISTORY : None. ENCOUNTER: Initial ACUITY: 2 days PAIN SCORE: 0/10 LOCATION: Bilateral chest FINDINGS: The heart is normal in size. The lungs demonstrate chronic interstitial changes. These are stable com pared to the prior exam. The visualized bony structures are grossly intact. CONCLUSION: 1. Chronic appearing interstitial changes. Stable compared to previous. Landon Brunner MD on January 22, 2017 at 10:20 Board Certified Radiologist. This report was verified electronically.
[2017-01-22] MEDS ORDERED: POTASSIUM CHLORIDE 10 MEQ CONTROLLED RELEASE TAB PO ONE (11:00)
--- NOTE | 2017-01-22 11:35 | HHI.PR ---
Subjective Remarks 76 YOWM with 02 dependant COPD,NAI, has lung infilt Used CPAP last night Up in chair Mild sob No CP had coughing spell last night at BS Objective Vital Signs Vital Signs Date Time Temp Pulse Resp B/P (MAP) Pulse Ox O2 Delivery O2 Flow Rate FiO2 01/22/17 08:33 95 Nasal Cannula 4.00 01/22/17 08:00 98.1 77 24 152/72 (98) 94 01/22/17 06:00 104 01/22/17 04:35 93 40 01/22/17 04:00 98.7 119 40 173/81 (111) 94 01/22/17 04:00 119 01/22/17 02:00 78 01/22/17 00:00 98.7 85 16 163/72 (102) 96 01/22/17 00:00 85 01/21/17 22:00 94 01/21/17 20:00 95 01/21/17 20:00 98.4 95 25 141/67 (91) 93 01/21/17 18:00 103 01/21/17 16:00 103 01/21/17 16:00 98.0 103 155/72 (99) 92 01/21/17 14:00 93 01/21/17 12:00 94 01/21/17 12:00 98.2 94 26 137/63 (87) 94 I/O 01/21/17 01/21/17 01/21/17 01/22/17 01/22/17 01/22/17 07:00 15:00 23:00 07:00 15:00 23:00 Intake Total 100 ml 100 ml 250 ml 1677 ml Balance 100 ml 100 ml 250 ml 1677 ml Intake IV Total 100 ml 100 ml 250 ml 1677 ml # Voids 1 2 3 # Bowel Movements 0 1 0 Result Diagram: 01/22/1742601/22/17426 Objective Remarks GENERAL: Obese Wm, mild sob SKIN: Warm and dry. HEAD: Normocephalic. EYES: No scleral icterus. No injection or drainage. NECK: Supple, trachea midline. No JVD or lymphadenopathy. CARDIOVASCULAR: Regular rate and rhythm without murmurs, gallops, or rubs. RESPIRATORY: Breath sounds equal bilaterally. No accessory muscle use. GASTROINTESTINAL: Abdomen soft, non-tender, nondistended. MUSCULOSKELETAL: No cyanosis, or edema. BACK: Nontender without obvious deformity. No CVA tenderness. A/P Assessment and Plan COPD Exac NAI Lung infilt HTN Dementia PLAN: Aerosol nebs IV Solumedrol 40 mg bid Cont Abx Supplement 02 CPAp at night Tessalon 200 mg TID Henrique Myers MD Jan 22, 2017 11:35
--- NOTE | 2017-01-22 13:14 | PD.CONS ---
Consult Service Palliative Care Consult Requested By Dr Montes . Primary Care Physician Tanya Medina Do, MD Reason for Consultation a. To assist with evaluation and management of symptoms including: dyspnea, anxiety, back pain b. To assist medical decision maker(s) with: better understanding of current medical conditions; weighing benefits/burdens of medical treatment options; making medical treatment decisions. HPI History of Present Illness This pt presented to the ED on 01/20/17 complains of wheezing cough, shortness of breath onset a week prior. He has known history of COPD, on chronic prednisone. He also reported a cough with green sputum. Chronically uses CPAP at night, the week prior to presentation also had a use it much of the daytime. He apparently had just been started on Levaquin day before admission/ presentation. * CXR= questionable airspace opacity right midlung zone no other acute findings. Follow-up CT for further evaluation. Started on aztreonam, Levaquin for CAP coverage. DuoNeb's started. Lactic acid 7.3 WBC 15.2 Admitted for further evaluation and management. Critical care was consulted. * Critical care notes reported difficult airway and that family reported they had been instructed in the past that if patient required emergent intubation he may require emergency tracheostomy. IV fluids, antibiotics continued. * Pulmonology consult (Known to Dr Myers) --recommend continuing antibiotics, Solu-Medrol, CPAP. * 01/21 O2 weaned to 4 L nasal cannula, patient stabilize, improving. Critical care discussed with patient and family regarding resuscitation status, they elected DNR. Plan for transfer to floor tomorrow. * 01/22 discharge planning in process, patient with improvement. Transfer to regular medical floor pending, will need SNF placement. Lactic acid 4.7. CXR with chronic appearing interstitial changes, stable. Palliative care consulted to assist with clarification of goals of treatment. *Dual visit with [facility]. Patient seen today in room initially sister at bedside spoke with patient and sister briefly, then met with them again more at length once patient had arrived. Patient is alert, mostly oriented though at times forgetful and has to search for words. He is cooperative, often defers to his when he can't answer a question or forgets. tells me about an event about 1 month ago while they were out of town visiting family in which the patient had a TIA-like event he became weak he had difficulty communicating and seem to be altered however he returned to his normal status within a couple of hours. She describes his dementia is mild with inattentiveness to grooming, forgetful needs prompting at times. describes dyspnea as worsened over the past couple months patient activity more limited he is more sedentary though she is encouraged him to continue to ambulate room to room. Patient has had COPD for many years, on O2 for several years. Discussed with primary RN, discussed with medical attending.. Function/Cognitive Trajectory Lives at home with his , O2 dependent. Very limited ambulation short distances within room to room of his home, limited secondary to dyspnea. Mild dementia, forgetfulness, inattentive to details such as grooming showering etc. . Review of Systems Constitutional: COMPLAINS OF: Weight loss (approximately 10 pounds in one month per ), DENIES: Change in appetite Eyes: DENIES: Vision loss Ears, nose, mouth, throat: DENIES: Oral lesions, Throat pain Respiratory: COMPLAINS OF: Apneas (NAI), Cough, Wheezing, Sputum production, Shortness of breath, DENIES: Hemoptysis Cardiovascular: COMPLAINS OF: Dyspnea on Exertion, Lower Extremity Edema ( slight only during hospitalization is not usually), Orthopnea, DENIES: Chest pain Gastrointestinal: DENIES: Abdominal pain, Nausea, Vomiting, Difficulty Swallowing Musculoskeletal: COMPLAINS OF: Back pain (chronic secondary to back surgery), DENIES: Joint pain, Muscle aches Neurologic: DENIES: Speech Problems Psychiatric: COMPLAINS OF: Anxiety (intermittent with breathing difficulties), Confusion (mild, dementia) Past Family Social History Coded Allergies: Penicillins (Verified Allergy, Unknown, 01/20/17) cephalexin (Verified Allergy, Unknown, 01/20/17) codeine (Unverified Allergy, Unknown, 01/20/17) Uncoded Allergies: DIFFICULT AIRWAY (Adverse Reaction, Severe, 01/20/17) Past Medical History COPDO2 dependent, CPAP at night Diabetes Umbilical hernia Hypertension Dementia Parkinson disease Pulmonary hypertension Hypothyroid Hypercholesterolemia Anxiety Depression . Past Surgical History Umbilical hernia repair Bilateral cataract surgery Tonsillectomy Reported Medications Lipitor (Atorvastatin Calcium) 20 Mg Tab 20 Mg PO HS Omeprazole 20 Mg Tab 20 Mg PO DAILY Celexa (Citalopram Hydrobromide) 20 Mg Tab 20 Mg PO DAILY Amlodipine (Amlodipine Besylate) 10 Mg Tab 10 Mg PO DAILY Aricept (Donepezil HCl) 5 Mg Tablet 5 Mg PO HS Lisinopril 40 Mg Tab 40 Mg PO DAILY Risperdal (Risperidone) 0.25 Mg Tab 0.25 Mg PO BID Tamsulosin (Tamsulosin HCl) 0.4 Mg Cap 0.4 Mg PO DAILY Take once a day 30 minutes after the same meal each day Loperamide Liq (Loperamide HCl) 1 Mg/7.5 Ml Liq 1 Mg PO PRN Namenda (Memantine) 10 Mg Tab 10 Mg PO BID Hydralazine HCl 10 Mg Tablet 10 Mg PO BID Hydrochlorothiazide 25 Mg Tab 25 Mg PO DAILY Ipratropium Neb (Ipratropium Silver Plume) 0.5 Mg/2.5 Ml Amp 0.5 Mg NEB BID Claritin (Loratadine) 10 Mg Tablet 10 Mg PO DAILY Advair Diskus Inh (Fluticasone-Salmeterol Inh) 500-50 Mcg/Blist Aer 1 Puff INH BID Rinse mouth after use. Ventolin Hfa 18 GM Inh (Albuterol Sulfate) 90 Mcg/Act Aer 2 Puff INH Q4H PRN Levothyroxine (Levothyroxine Sodium) 112 Mcg Tab 112 Mcg PO DAILY Metformin (Metformin HCl) 500 Mg Tab 500 Mg PO DAILY With a meal Albuterol Neb (Albuterol Sulfate) 2.5 Mg/3 Ml Neb 2.5 Mg NEB QID PRN Tessalon Perles (Benzonatate) 100 Mg Cap 100 Mg PO TID PRN Levaquin (Levofloxacin) 500 Mg Tablet 500 Mg PO DAILY 10 Days Stop date: 01/29/2017 Prednisone 10 Mg Tab PO DAILY Titrating dose: 4 tabs (40mg) on days 1,2,3, then 3 tabs (30mg) on days 4,5,6 and then 1 tab twice a day . Current Medications Medications (Trade) Dose Ordered Sig/Sarah Route Start Time Stop Time Status Last Admin (NS Flush) 2 ml UNSCH PRN IVF 01/20/17 13:45 Sodium Chloride 1,000 ml @ 42 mls/hr [id number] IV 01/20/17 18:00 01/21/17 21:38 (NS Flush) 2 ml UNSCH PRN IV FLUSH 01/20/17 18:00 (NS Flush) 2 ml BID IV FLUSH 01/20/17 21:00 01/22/17 08:41 (Tylenol) 650 mg Q6H PRN PO 01/20/17 18:00 (Protonix Inj) 40 mg DAILY IV PUSH 01/21/17 09:00 01/22/17 08:41 (Zofran Inj) 4 mg Q6H PRN IV PUSH 01/20/17 18:00 (Duoneb Neb) 1 ampule Q6HR NEB INH 01/20/17 22:00 01/22/17 08:33 (Duoneb Neb) 1 ampule Q2HR NEB PRN INH 01/20/17 18:00 (Heparin Inj) 5,000 units Q12H SQ 01/20/17 18:00 01/22/17 05:23 Miscellaneous Information 1 [id number] XX 01/20/17 18:00 (Chlorhexidine 2% Cloth) 3 pack Taper DAILY@04 TOP 01/21/17 04:00 01/17/18 03:59 (Chlorhexidine 2% Cloth) 3 pack UNSCH PRN TOP 01/20/17 18:00 (Lo-Colace) 1 tab BID PO 01/20/17 21:00 01/22/17 08:41 (Milk Of Magnesia Liq) 30 ml Q12H PRN PO 01/20/17 18:00 (Senokot) 17.2 mg Q12H PRN PO 01/20/17 18:00 (Dulcolax Supp) 10 mg DAILY PRN RECTAL 01/20/17 18:00 (Lactulose Liq) 30 ml DAILY PRN PO 01/20/17 18:00 (D50w (Vial) Inj) 50 ml UNSCH PRN IV PUSH 01/20/17 18:00 (Glucagon Inj) 1 mg UNSCH PRN OTHER 01/20/17 18:00 (NovoLOG SUPPLEMENTAL SCALE) 1 ACHS SLIDING SCALE SQ 01/20/17 21:00 01/22/17 11:52 Aztreonam 2000 mg/ Sodium Chloride 100 ml @ 200 mls/hr Q8H IV 01/21/17 00:00 01/22/17 08:41 Levofloxacin/ Dextrose 150 ml @ 100 mls/hr Q24H IV 01/21/17 15:00 01/21/17 15:23 (SoluMEDROL INJ) 40 mg Q12HR IV PUSH 01/20/17 21:00 01/22/17 08:41 (Lipitor) 20 mg HS PO 01/20/17 21:00 01/21/17 21:39 (Aricept) 5 mg HS PO 01/20/17 21:00 01/21/17 21:39 (Synthroid) 112 mcg DAILY@0600 PO 01/21/17 06:00 01/22/17 05:23 (Namenda) 10 mg BID PO 01/20/17 21:00 01/22/17 08:40 (risperDAL) 0.25 mg BID PO 01/20/17 21:00 01/22/17 08:41 (Flomax) 0.4 mg DAILY PO 01/21/17 09:00 01/22/17 08:40 (Symbicort 160-4.5 Inh) 2 puff BID INH 01/20/17 21:00 01/22/17 08:41 (Tessalon) 100 mg TID PRN PO 01/20/17 19:00 01/22/17 03:58 (Norvasc) 10 mg DAILY PO 01/22/17 09:00 01/22/17 08:41 (Apresoline) 10 mg BID PO 01/21/17 21:00 01/22/17 08:41 (Hydrodiuril) 25 mg DAILY PO 01/21/17 10:00 01/22/17 08:40 (Prinivil) 40 mg DAILY PO 01/21/17 10:00 01/22/17 08:40 (Melatonin) 5 mg HS PO 01/21/17 23:15 01/21/17 23:25 (CeleXA) 20 mg DAILY PO 01/22/17 09:00 Future Hold Family History Family history of vascular dementia Substance Use Tobacco: Former smoker Alcohol: Occasional alcohol Prescription med abuse: None Illicits: None . 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 . Spiritual/Cultural Factors Hinduism Living Will: Completed, but not made available Health Care Surrogate: Completed, but not made available Ethical and Legal Issues Patient with limited ability to participate secondary to mild dementia, forgetful. reports she is designated healthcare surrogate, Awaiting copies of healthcare surrogate documentation. per [place] statute she would be appropriate legal proxy. Physical Exam Vital Signs Date Time Temp Pulse Resp B/P (MAP) Pulse Ox O2 Delivery O2 Flow Rate FiO2 01/22/17 08:33 95 Nasal Cannula 4.00 01/22/17 08:00 98.1 77 24 152/72 (98) 94 01/22/17 08:00 85 01/22/17 06:00 104 01/22/17 04:35 93 40 01/22/17 04:00 98.7 119 40 173/81 (111) 94 01/22/17 04:00 119 01/22/17 02:00 78 01/22/17 00:00 98.7 85 16 163/72 (102) 96 01/22/17 00:00 85 01/21/17 22:00 94 01/21/17 20:00 95 01/21/17 20:00 98.4 95 25 141/67 (91) 93 01/21/17 18:00 103 01/21/17 16:00 103 01/21/17 16:00 98.0 103 155/72 (99) 92 01/21/17 14:00 93 Exam CONSTITUTIONAL/GENERAL: This is an obese, mildly short of breath man TUBES/LINES/DRAINS: Peripheral IV upper extremities, nasal cannula, SCDs at bedside SKIN: No jaundice, rashes, or lesions. Multiple areas of Ecchymoses, small skin tears on upper extremities. No wounds seen anteriorly. Skin temperature appropriate. Not diaphoretic. HEAD: Atraumatic. Normocephalic. EYES: Pupils equal and round and reactive. Extraocular motions intact. No scleral icterus. No injection or drainage. Fundi not examined. ENT: Hearing grossly normal. Nose without bleeding or purulent drainage. Throat without visible erythema, exudates, masses, or lesions. NECK: Trachea midline. Supple, nontender. No palpable thyroid enlargement or nodularity. CARDIOVASCULAR: Regular rate and rhythm without murmurs. No JVD. Peripheral pulses symmetric. RESPIRATORY/CHEST: Symmetric, mildly labored respirations at times. Clear, diminished, faint expiratory wheezes to the right. breath sounds equal bilaterally. GASTROINTESTINAL: Abdomen soft, round, non-tender, nondistended. No palpable masses. No guarding. Bowel sounds present. GENITOURINARY: Without palpable bladder distension. Reports voids as needed. MUSCULOSKELETAL: Extremities without clubbing, cyanosis, or edema. No joint tenderness or effusion noted. No mottling or clubbing. LYMPHATICS: No palpable cervical or supraclavicular adenopathy. NEUROLOGICAL: Awake and alert. Oriented times 23, forgetful. Some limited insight. Motor and sensory grossly within normal limits. Follows commands. Moves all extremities. PSYCHIATRIC: No obvious anxiety/depression. no apparent hallucinations or other psychotic thought process. Diagnostic Tests Laboratory Laboratory Tests Test 01/20/17 13:45 01/20/17 13:50 01/20/17 15:00 01/20/17 17:20 White Blood Count 15.2 TH/MM3 (4.0-11.0) Red Blood Count 5.28 MIL/MM3 (4.50-5.90) Hemoglobin 15.0 GM/DL (13.0-17.0) Hematocrit 45.8 % (39.0-51.0) Mean Corpuscular Volume 86.8 FL (80.0-100.0) Mean Corpuscular Hemoglobin 28.3 PG (27.0-34.0) Mean Corpuscular Hemoglobin Concent 32.6 % (32.0-36.0) Red Cell Distribution Width 14.3 % (11.6-17.2) Platelet Count 359 TH/MM3 (150-450) Mean Platelet Volume 7.7 FL (7.0-11.0) Neutrophils (%) (Auto) 85.0 % (16.0-70.0) Lymphocytes (%) (Auto) 8.6 % (9.0-44.0) Monocytes (%) (Auto) 6.1 % (0.0-8.0) Eosinophils (%) (Auto) 0.1 % (0.0-4.0) Basophils (%) (Auto) 0.2 % (0.0-2.0) Neutrophils # (Auto) 12.9 TH/MM3 (1.8-7.7) Lymphocytes # (Auto) 1.3 TH/MM3 (1.0-4.8) Monocytes # (Auto) 0.9 TH/MM3 (0-0.9) Eosinophils # (Auto) 0.0 TH/MM3 (0-0.4) Basophils # (Auto) 0.0 TH/MM3 (0-0.2) CBC Comment AUTO DIFF Differential Total Cells Counted 100 Neutrophils % (Manual) 76 % (16-70) Band Neutrophils % 7 % (0-6) Lymphocytes % 8 % (9-44) Monocytes % 3 % (0-8) Neutrophils # (Manual) 13.5 TH/MM3 (1.8-7.7) Metamyelocytes 3 % (0-1) Myelocytes 3 % (0-0) Differential Comment FINAL DIFF MANUAL Atypical Lymphocytes % (0-0) Platelet Estimate NORMAL (NORMAL) Platelet Morphology Comment ENLARGED (NORMAL) Ovalocytes 1+ (NORMAL) Prothrombin Time 11.3 SEC (9.8-11.6) Prothromb Time International Ratio 1.0 RATIO Activated Partial Thromboplast Time 25.1 SEC (24.3-30.1) Blood Urea Nitrogen 24 MG/DL (7-18) Creatinine 1.33 MG/DL (0.60-1.30) Random Glucose 114 MG/DL (74-106) Total Protein 6.9 GM/DL (6.4-8.2) Albumin 2.9 GM/DL (3.4-5.0) Calcium Level 9.3 MG/DL (8.5-10.1) Magnesium Level 2.2 MG/DL (1.5-2.5) Alkaline Phosphatase 83 U/L (45-117) Aspartate Amino Transf (AST/SGOT) 15 U/L (15-37) Alanine Aminotransferase (ALT/SGPT) 25 U/L (12-78) Total Bilirubin 0.6 MG/DL (0.2-1.0) Sodium Level 139 MEQ/L (136-145) Potassium Level 3.4 MEQ/L (3.5-5.1) Chloride Level 98 MEQ/L (98-107) Carbon Dioxide Level 29.0 MEQ/L (21.0-32.0) Anion Gap 12 MEQ/L (5-15) Estimat Glomerular Filtration Rate 52 ML/MIN (>89) Total Creatine Kinase 40 U/L (39-308) Troponin I LESS THAN 0.02 NG/ML B-Type Natriuretic Peptide 21 PG/ML (0-100) Blood Gas Puncture Site RT RADIAL Blood Gas Patient Temperature 98.6 Blood Gas HCO3 24 mmol/L (22-26) Blood Gas Base Excess 1.4 mmol/L (-2-2) Blood Gas Oxygen Saturation 92 % (90-100) Arterial Blood pH 7.50 (7.380-7.420) Arterial Blood Partial Pressure CO2 32 mmHg (38-42) Arterial Blood Partial Pressure O2 63 mmHG (61-120) Arterial Blood Oxygen Content 19.3 Vol % (12.0-20.0) Arterial Blood Carboxyhemoglobin 1.4 % (0-4) Arterial Blood Methemoglobin 0.6 % (0-2) Blood Gas Hemoglobin 14.9 G/DL (12.0-16.0) Oxygen Delivery Device NASAL CANNULA Blood Gas Liter Flow 2 L/M Lactic Acid Level 7.3 mmol/L (0.4-2.0) 4.6 mmol/L (0.4-2.0) Test 01/20/17 19:00 01/20/17 19:50 01/21/17 04:15 01/21/17 05:02 Nasal Screen MRSA (PCR) MRSA NOT DETECTED (NOT Blood Gas Puncture Site RT RADIAL LT RADIAL Blood Gas Patient Temperature 98.6 98.6 Blood Gas HCO3 25 mmol/L (22-26) 27 mmol/L (22-26) Blood Gas Base Excess 2.1 mmol/L (-2-2) 3.3 mmol/L (-2-2) Blood Gas Oxygen Saturation 93 % (90-100) 91 % (90-100) Arterial Blood pH 7.48 (7.380-7.420) 7.48 (7.380-7.420) Arterial Blood Partial Pressure CO2 35 mmHg (38-42) 36 mmHg (38-42) Arterial Blood Partial Pressure O2 71 mmHg (61-120) 66 mmHg (61-120) Arterial Blood Oxygen Content 18.6 Vol % (12.0-20.0) 18.3 Vol % (12.0-20.0) Arterial Blood Carboxyhemoglobin 1.3 % (0-4) 1.3 % (0-4) Arterial Blood Methemoglobin 1.2 % (0-2) 1.3 % (0-2) Blood Gas Hemoglobin 14.3 G/DL (12.0-16.0) 14.2 G/DL (12.0-16.0) Oxygen Delivery Device NASAL CANNULA NASAL CANNULA Blood Gas Liter Flow 4 L/M 4 L/M White Blood Count 14.1 TH/MM3 (4.0-11.0) Red Blood Count 4.85 MIL/MM3 (4.50-5.90) Hemoglobin 13.6 GM/DL (13.0-17.0) Hematocrit 41.6 % (39.0-51.0) Mean Corpuscular Volume 85.9 FL (80.0-100.0) Mean Corpuscular Hemoglobin 28.1 PG (27.0-34.0) Mean Corpuscular Hemoglobin Concent 32.8 % (32.0-36.0) Red Cell Distribution Width 14.1 % (11.6-17.2) Platelet Count 302 TH/MM3 (150-450) Mean Platelet Volume 7.6 FL (7.0-11.0) Blood Urea Nitrogen 23 MG/DL (7-18) Creatinine 1.20 MG/DL (0.60-1.30) Random Glucose 189 MG/DL (74-106) Calcium Level 8.6 MG/DL (8.5-10.1) Phosphorus Level 2.9 MG/DL (2.5-4.9) Magnesium Level 2.3 MG/DL (1.5-2.5) Sodium Level 139 MEQ/L (136-145) Potassium Level 3.4 MEQ/L (3.5-5.1) Chloride Level 101 MEQ/L (98-107) Carbon Dioxide Level 25.7 MEQ/L (21.0-32.0) Anion Gap 12 MEQ/L (5-15) Estimat Glomerular Filtration Rate 59 ML/MIN (>89) Test 01/21/17 12:32 01/22/17 04:27 01/22/17 12:08 Lactic Acid Level 4.2 mmol/L (0.4-2.0) White Blood Count 21.5 TH/MM3 (4.0-11.0) Red Blood Count 5.14 MIL/MM3 (4.50-5.90) Hemoglobin 14.7 GM/DL (13.0-17.0) Hematocrit 44.5 % (39.0-51.0) Mean Corpuscular Volume 86.6 FL (80.0-100.0) Mean Corpuscular Hemoglobin 28.6 PG (27.0-34.0) Mean Corpuscular Hemoglobin Concent 33.0 % (32.0-36.0) Red Cell Distribution Width 14.0 % (11.6-17.2) Platelet Count 339 TH/MM3 (150-450) Mean Platelet Volume 8.0 FL (7.0-11.0) Blood Urea Nitrogen 22 MG/DL (7-18) Creatinine 1.27 MG/DL (0.60-1.30) Random Glucose 190 MG/DL (74-106) Calcium Level 8.7 MG/DL (8.5-10.1) Phosphorus Level 3.2 MG/DL (2.5-4.9) Magnesium Level 2.2 MG/DL (1.5-2.5) Sodium Level 138 MEQ/L (136-145) Potassium Level 3.4 MEQ/L (3.5-5.1) Chloride Level 100 MEQ/L (98-107) Carbon Dioxide Level 25.2 MEQ/L (21.0-32.0) Anion Gap 13 MEQ/L (5-15) Estimat Glomerular Filtration Rate 55 ML/MIN (>89) Result Diagram: 01/22/17 0427 01/22/17 0427 Microbiology Microbiology Date/Time Source Procedure Growth Status 01/20/17 15:05 Blood Peripheral Aerobic Blood Culture - Preliminary NO GROWTH IN 2 DAYS Resulted 01/20/17 15:05 Blood Peripheral Anaerobic Blood Culture - Preliminary NO GROWTH IN 2 DAYS Resulted 01/20/17 15:00 Blood Peripheral Aerobic Blood Culture - Preliminary NO GROWTH IN 2 DAYS Resulted 01/20/17 15:00 Blood Peripheral Anaerobic Blood Culture - Preliminary NO GROWTH IN 2 DAYS Resulted Imaging Last Impressions Chest X-Ray 01/22/17 0000 Signed Impressions: Service Date/Time: Sunday, January 22, 2017 09:38 - CONCLUSION: 1. Chronic appearing interstitial changes. Stable compared to previous. Landon Brunner MD Patient/Family Conference Issues Discussed: * Palliative care role, purpose, approach * Additional medical, psychosocial, and spiritual history * Patients general health, functional status, and cognitive changes in the months leading up to the current hospitalization * Patient/family understanding of the current medical problems * Patient/family understanding of prognosis * Patients goals of care as best understood from advance directives and/or conversations and/or values * Current medical treatment options and benefits/burdens of those options * Likely scenarios comparing ongoing aggressive care with a transition to comfort measures only * Questions answered to the best of my ability * Palliative care contact information provided Assessment and Plan Disease Oriented Problem List: (1) Dementia (2) DM (diabetes mellitus) (3) COPD (chronic obstructive pulmonary disease) (4) Community acquired pneumonia (5) COPD exacerbation Symptom Scale: (1) Dyspnea (2) Anxiety (3) Pain Pertinent Non-Medical Issues 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 Spiritual: Hinduism Legal:Patient with limited ability to participate secondary to mild dementia, forgetful. reports she is designated healthcare surrogate, Awaiting copies of healthcare surrogate documentation. per [place] statute she would be appropriate legal proxy. Ethical issues impacting care: Important Contacts Shalini Lee [phone] . Prognosis This patient was admitted for acute COPD exacerbation. He has underlying mild dementia. He has not had multiple recent hospitalizations or admissions for COPD, last admission 2015. He has had about 1 month of recent upper respiratory illness for which he underwent outpatient treatment. CXR stable, respiratory status improving. Appears he can get through current acute episode will likely be able to discharge home to prior level of function. Does Remain high risk for ongoing exacerbations, complications and setbacks due to COPD, mild dementia. Code Status: No Code Plan * Legal decision maker:Patient with limited ability to participate secondary to mild dementia, forgetful. reports she is designated healthcare surrogate, Awaiting copies of healthcare surrogate documentation. per [place] statute she would be appropriate legal proxy. * Goals: Goals of this time are aggressive, inpatient wish to maximize current treatments available, short of resuscitation, in hopes of getting patient back home to most recent level of function. They understand patient does remain at risk for continued trajectory of decline, we did have some discussion regarding hospice for advanced COPD if he continues to experience exacerbations and does not improve. * CODE STATUS: DNR, provided community DNR, signed in chart, needs MD signature to give to pt at d/c * SYMPTOMS: --anxiety- patient and family endorse occasional anxiety which worsens with COPD exacerbations. Does not require any chronic PRNs in the home setting. Has required PRn ativan x1 during acute hospitalization. Cautious use of opiates given risk of respiratory decline. No prn available at this time, could consider low dose ativan 0.25-0.5mg IV Q hr prn severe anxiety/dyspnea --dyspnea- patient with advanced COPD, O2 dependent, BiPAP dependent in the home setting. Currently on nebulizers, antibiotics and BiPAP at night, not tolerating nasal cannula O2. Aspiration appears to be improving/stabilized during acute hospitalization. -- chronic back pain 2/2 to old surgical fusion -- does not want strong narcotic medication, indicates usually uses nsaids/naproxen prn in the home. Has prn Tylenol available, no NSAIDs at this time due to potential risks per discussion with medical attending; d/w pt/, they will utilize prn tylenol. Cont to monitor. -- deconditioning- fam requests PT/OT to improve/maintain functional status- ordered PT/OT, d/w medical attending * Palliative care will continue to follow during hospital course as condition evolves, to assist patient/decision-maker with understanding of medical conditions, weighing benefits/burdens of treatment options, for clarification of goals of treatment. Additionally will assist with any symptoms of palliative concern Time Spent Total Floor Time (mins): 65 Thank you for the opportunity to participate in the care of Mr. Lee. Attestation To help prompt me to consider important information that might be impacting today's encounter and assessment, information from prior notes written by myself or my colleagues may have been "brought forward" into today's note. My signature on this note, however, is an attestation that I personally performed the exam, history, and/or decision-making noted today, and, unless otherwise indicated, the interactions with patient, family, and staff as well as the review of records all occurred today. I also attest that the listed assessment and stated plan reflect my best clinical judgment today based on the combination of historical information, prior notes, and today's exam/ interactions. When time spent is documented, it refers only to time spent today by the signer, or if indicated, combined time spent today by collaborating physician/nurse practitioner. Lynn Jenknis Jan 22, 2017 13:14
[2017-01-22 14:13] LABS: LACTIC ACID GHOST NOT REPORTABLE
[2017-01-22] MEDS: LEVOFLOXACIN 750 MG PREMIX INJ 150 ML IV SCH (14:22)
[2017-01-22] MEDS: SODIUM CHLOR 0.9% 1000 ML INJ 1,000 ML IV SCH ×2 (15:48→20:54)
[2017-01-22] MEDS: ATORVASTATIN 20 MG TAB PO SCH (21:06)
[2017-01-22] MEDS: DONEPEZIL HCL 5 MG TAB PO SCH (21:06)
[2017-01-22] MEDS: MELATONIN 5 MG TAB PO SCH (21:08)
[2017-01-23] VITALS (12 sets, daily range): BP systolic 143–167; BP diastolic 66–75; PULSE 67–82; RESP 20; TEMP 97.7–98.2; O2SAT 91–96
[2017-01-23] MEDS: AZTREONAM INJ 2,000 MG in SODIUM CHLORIDE 0.9% INJ 100 ML IV SCH ×4 (00:45→23:34)
[2017-01-23] MEDS: RESP: ALBUTEROL 2.5 MG/IPRATROPIUM 0.5 MG NEB (SCH) INH ×4 (03:29→21:03)
[2017-01-23] MEDS: CHLORHEXIDINE GLUCONATE 2 % 1 PACK (2 CLOTHS) TOP SCH (04:00)
[2017-01-23] MEDS: HEPARIN SODIUM - SQ 10,000 UNITS/ML VIAL SQ SCH ×2 (06:42→17:35)
[2017-01-23] MEDS: LEVOTHYROXINE SODIUM 112 MCG TAB PO SCH (06:42)
[2017-01-23 07:56] LABS: BASOPHIL % 0.2 % (0.0-2.0); HEMO FLAGS AUTO DIFF; LYMPH % 6.6 % (9.0-44.0); LYMPHOCYTE # 1.4 TH/MM3 (1.0-4.8); MEAN CELL VOLUME 87.3 FL (80.0-100.0); MEAN CORPUSCULAR HEMOGLOBIN 28.3 PG (27.0-34.0); MEAN CORPUSCULAR HGB CONC 32.5 % (32.0-36.0); MONO % 3.9 % (0.0-8.0); NEUT % 89.3 % (16.0-70.0); PLATELET COUNT 284 TH/MM3 (150-450); RED BLOOD COUNT 4.93 MIL/MM3 (4.50-5.90); RED CELL DISTRIBUTION WIDTH 14.4 % (11.6-17.2); WHITE BLOOD COUNT 21.3 TH/MM3 (4.0-11.0)
[2017-01-23 08:18] LABS: BICARBONATE 28.9 MEQ/L (21.0-32.0)
[2017-01-23] MEDS: PANTOPRAZOLE SODIUM 40 MG VIAL IV PUSH SCH (09:30)
[2017-01-23] MEDS: LISINOPRIL 20 MG TAB PO SCH (09:30)
[2017-01-23] MEDS: MEMANTINE HCL 10 MG TAB PO SCH ×2 (09:30→20:51)
[2017-01-23] MEDS: hydrALAZINE HCL 10 MG TAB PO SCH ×2 (09:31→20:51)
[2017-01-23] MEDS: TAMSULOSIN HCL 0.4 MG CAP PO SCH (09:31)
[2017-01-23] MEDS: HYDROCHLOROTHIAZIDE 25 MG TAB PO SCH (09:31)
[2017-01-23] MEDS: BUDESONIDE-FORMOTEROL 160/4.5 MCG INHALER INH SCH ×2 (09:39→20:55)
[2017-01-23] MEDS: risperiDONE 0.25 MG TAB PO SCH ×2 (09:39→20:51)
[2017-01-23] MEDS: methylPREDNISolone SOD SUCC 40 MG/1 ML VIAL IV PUSH SCH ×2 (09:39→20:52)
[2017-01-23] MEDS: SODIUM CHLORIDE 0.9% FLUSH 10 ML FLUSH IV FLUSH SCH ×2 (09:39→20:52)
[2017-01-23] MEDS: INSULIN ASPART SUPPLEMENTAL SCALE SQ SCH ×4 (09:40→20:52)
[2017-01-23 10:51] LABS: BANDS 3 % (0-6); METAMYELOCYTES 1 % (0-1); NEUTROPHIL # MANUAL DIFF 18.1 TH/MM3 (1.8-7.7); PLATELET ESTIMATE SMEAR NORMAL (NORMAL); PLATELET MORPHOLOGY NORMAL (NORMAL); POLYS (SEG NEUTROPHILS) 81 % (16-70); WBC DIFF SAMPLE 100
[2017-01-23 10:52] LABS: SCAN/DIFF FINAL DIFF MANUAL
--- NOTE | 2017-01-23 11:57 | HHI.PR ---
Subjective Remarks Follow-up COPD exacerbation 01/23/17-patient seen and examined, still on 4 L nasal cannula oxygen and denies any wheezing. Patient refuses BiPAP at night. Currently afebrile. Still with some cough production. Son by the bedside. Patient oriented to self and place but not date Objective Vitals Vital Signs Date Time Temp Pulse Resp B/P (MAP) Pulse Ox O2 Delivery O2 Flow Rate FiO2 01/23/17 08:04 95 Nasal Cannula 4.00 01/23/17 08:00 98.0 75 20 152/71 (98) 95 01/23/17 04:00 97.8 69 20 149/70 (96) 95 01/23/17 03:30 95 21 01/23/17 00:00 98.2 75 20 162/68 (99) 94 01/22/17 22:20 92 01/22/17 21:31 BiPAP 40 01/22/17 21:30 98 40 01/22/17 20:00 98.1 85 20 144/65 (91) 94 01/22/17 20:00 90 01/22/17 16:00 97 01/22/17 16:00 98.3 92 20 147/62 (90) 94 01/22/17 12:30 95 01/22/17 12:00 98.1 96 24 159/68 (98) 92 01/22/17 12:00 96 I/O 01/22/17 01/22/17 01/22/17 01/23/17 01/23/17 01/23/17 07:00 15:00 23:00 07:00 15:00 23:00 Intake Total 1677 ml 620 ml Balance 1677 ml 620 ml Intake Oral 620 ml IV Total 1677 ml # Voids 3 4 # Bowel Movements 0 Result Diagram: 01/23/17 0630 01/23/17 0630 Imaging Last Impressions Chest X-Ray 01/22/17 0000 Signed Impressions: Service Date/Time: Sunday, January 22, 2017 09:38 - CONCLUSION: 1. Chronic appearing interstitial changes. Stable compared to previous. Landon Brunner MD Objective Remarks GENERAL: NAD and obese SKIN: Warm and dry. HEAD: Normocephalic. EYES: No scleral icterus. No injection or drainage. NECK: Supple, trachea midline. No JVD or lymphadenopathy. CARDIOVASCULAR: Regular rate and rhythm without murmurs, gallops, or rubs. RESPIRATORY: Breath sounds equal bilaterally. No accessory muscle use. GASTROINTESTINAL: Abdomen soft, non-tender, nondistended. MUSCULOSKELETAL: No cyanosis, or edema. BACK: Nontender without obvious deformity. No CVA tenderness. Procedures None A/P Problem List: (1) COPD exacerbation ICD Code: J44.1 - Chronic obstructive pulmonary disease with (acute) exacerbation Status: Acute (2) Community acquired pneumonia ICD Code: J18.9 - Pneumonia, unspecified organism Status: Acute (3) Dementia ICD Code: F03.90 - Unspecified dementia without behavioral disturbance Status: Chronic (4) DM (diabetes mellitus) ICD Code: E11.9 - Type 2 diabetes mellitus without complications Status: Chronic Assessment and Plan 76-year-old man with COPD exacerbation Pulmonary hypertension Home O2 dependency Community-acquired pneumonia NAI Methylprednisolone 40 mg twice a day, taper steroids as tolerated. Continue Tessalon Pearls PRN Continue current antibiotics including Azactam and Levaquin Duo nebs every 6 hours scheduled, every 2 hours when necessary Appreciate input from pulmonary medicine BiPAP as needed Alzheimer's Dementia Parkinsonian symptoms Depressive disorder Diabetic polyneuropathy Continue Aricept,Memantine,and Risperdal Will hold Citalopram for now Hypertension Dyslipidemia Currently on Norvasc and Prinivil Continue atorvastatin BPH Continue Flomax Community acquired pneumonia Leukocytosis Continue Azactam and Levaquin Hypothyroidism Diabetes mellitus Continue levothyroxine 112 mcg Prophylaxis: GI Prophylaxis Protonix DVT Prophylaxis -- SCDs Heparin 5000u BI CODE STATUS DNR Problem Qualifiers (1) Community acquired pneumonia: Qualified Codes: J18.1 - Lobar pneumonia, unspecified organism Rober Vogel MD Jan 23, 2017 11:57
[2017-01-23] MEDS: LEVOFLOXACIN 750 MG PREMIX INJ 150 ML IV SCH (15:49)
[2017-01-23] MEDS: MELATONIN 5 MG TAB PO SCH (20:51)
[2017-01-23] MEDS: DONEPEZIL HCL 5 MG TAB PO SCH (20:51)
[2017-01-23] MEDS: ATORVASTATIN 20 MG TAB PO SCH (20:52)
[2017-01-23] MEDS: SODIUM CHLOR 0.9% 1000 ML INJ 1,000 ML IV SCH (20:56)
[2017-01-24] VITALS (9 sets, daily range): BP systolic 121–165; BP diastolic 57–79; PULSE 70–90; RESP 18–20; TEMP 97.4–98; O2SAT 92–97
[2017-01-24] MEDS: RESP: ALBUTEROL 2.5 MG/IPRATROPIUM 0.5 MG NEB (SCH) INH ×4 (02:49→20:47)
[2017-01-24] MEDS: CHLORHEXIDINE GLUCONATE 2 % 1 PACK (2 CLOTHS) TOP SCH (04:00)
[2017-01-24] MEDS: LEVOTHYROXINE SODIUM 112 MCG TAB PO SCH (05:56)
[2017-01-24] MEDS: HEPARIN SODIUM - SQ 10,000 UNITS/ML VIAL SQ SCH ×2 (05:56→17:45)
[2017-01-24] MEDS: INSULIN ASPART SUPPLEMENTAL SCALE SQ SCH ×4 (08:00→21:00)
[2017-01-24] MEDS: BUDESONIDE-FORMOTEROL 160/4.5 MCG INHALER INH SCH ×2 (09:37→21:00)
[2017-01-24] MEDS: LISINOPRIL 20 MG TAB PO SCH (09:38)
[2017-01-24] MEDS: TAMSULOSIN HCL 0.4 MG CAP PO SCH (09:38)
[2017-01-24] MEDS: hydrALAZINE HCL 10 MG TAB PO SCH ×2 (09:38→21:11)
[2017-01-24] MEDS: risperiDONE 0.25 MG TAB PO SCH ×2 (09:38→21:11)
[2017-01-24] MEDS: HYDROCHLOROTHIAZIDE 25 MG TAB PO SCH (09:39)
[2017-01-24] MEDS: PANTOPRAZOLE SODIUM 40 MG VIAL IV PUSH SCH (09:39)
[2017-01-24] MEDS: methylPREDNISolone SOD SUCC 40 MG/1 ML VIAL IV PUSH SCH ×2 (09:39→21:11)
[2017-01-24] MEDS: MEMANTINE HCL 10 MG TAB PO SCH ×2 (09:40→21:11)
[2017-01-24] MEDS: SODIUM CHLORIDE 0.9% FLUSH 10 ML FLUSH IV FLUSH SCH ×2 (09:40→21:00)
[2017-01-24] MEDS: AZTREONAM INJ 2,000 MG in SODIUM CHLORIDE 0.9% INJ 100 ML IV SCH ×2 (10:14→16:41)
--- NOTE | 2017-01-24 10:49 | HHI.PR ---
Subjective Remarks Follow-up COPD exacerbation 01/23/17-patient seen and examined, still on 4 L nasal cannula oxygen and denies any wheezing. Patient refuses BiPAP at night. Currently afebrile. Still with some cough production. Son by the bedside. Patient oriented to self and place but not date 01/24/17-patient seen and examined, reports improvement of symptoms of shortness of breath Objective Vitals Vital Signs Date Time Temp Pulse Resp B/P (MAP) Pulse Ox O2 Delivery O2 Flow Rate FiO2 01/24/17 08:00 97.9 70 18 165/78 (107) 92 01/24/17 07:42 93 Nasal Cannula 4.00 01/24/17 04:00 97.4 72 20 144/72 (96) 95 01/24/17 04:00 Bi-Pap 01/24/17 02:49 97 40 01/24/17 00:00 Bi-Pap 01/23/17 22:35 94 40 01/23/17 22:00 67 20 167/75 (105) 96 01/23/17 21:08 95 40 01/23/17 21:08 95 BiPAP 40 01/23/17 20:00 Nasal Cannula 4.00 01/23/17 20:00 97.9 82 20 143/66 (91) 91 01/23/17 16:00 97.7 80 20 151/70 (97) 96 01/23/17 12:00 97.8 70 20 153/71 (98) 92 I/O 01/23/17 01/23/17 01/23/17 01/24/17 01/24/17 01/24/17 07:00 15:00 23:00 07:00 15:00 23:00 Intake Total 2340 ml 100 ml Output Total 400 ml 450 ml Balance 1940 ml -350 ml Intake Oral 240 ml IV Total 2100 ml 100 ml Output Urine Total 400 ml 450 ml # Voids 2 # Bowel Movements 1 0 Result Diagram: 01/23/1762901/23/17629 Objective Remarks GENERAL: NAD and obese SKIN: Warm and dry. HEAD: Normocephalic. EYES: No scleral icterus. No injection or drainage. NECK: Supple, trachea midline. No JVD or lymphadenopathy. CARDIOVASCULAR: Regular rate and rhythm without murmurs, gallops, or rubs. RESPIRATORY: Breath sounds equal bilaterally. No accessory muscle use. GASTROINTESTINAL: Abdomen soft, non-tender, nondistended. MUSCULOSKELETAL: No cyanosis, or edema. BACK: Nontender without obvious deformity. No CVA tenderness. Procedures None A/P Problem List: (1) COPD exacerbation ICD Code: J44.1 - Chronic obstructive pulmonary disease with (acute) exacerbation Status: Acute (2) Community acquired pneumonia ICD Code: J18.9 - Pneumonia, unspecified organism Status: Acute (3) Dementia ICD Code: F03.90 - Unspecified dementia without behavioral disturbance Status: Chronic (4) DM (diabetes mellitus) ICD Code: E11.9 - Type 2 diabetes mellitus without complications Status: Chronic Assessment and Plan 76-year-old man with COPD exacerbation Pulmonary hypertension Home O2 dependency Community-acquired pneumonia NAI Methylprednisolone 40 mg twice a day however will change to 20 mg twice a day , taper steroids as tolerated. Continue Tessalon Pearls PRN Continue current antibiotics including Azactam and Levaquin Duo nebs every 6 hours scheduled, every 2 hours when necessary Appreciate input from pulmonary medicine BiPAP as needed Alzheimer's Dementia Parkinsonian symptoms Depressive disorder Diabetic polyneuropathy Continue Aricept,Memantine,and Risperdal Continue to hold Citalopram for now Hypertension Dyslipidemia Currently on Norvasc and Prinivil Continue atorvastatin BPH Continue Flomax Community acquired pneumonia Leukocytosis Continue Azactam and Levaquin Hypothyroidism Diabetes mellitus Continue levothyroxine 112 mcg Prophylaxis: GI Prophylaxis Protonix DVT Prophylaxis -- SCDs Heparin 5000u BI CODE STATUS DNR Problem Qualifiers (1) Community acquired pneumonia: Qualified Codes: J18.1 - Lobar pneumonia, unspecified organism Rober Vogel MD Jan 24, 2017 10:49
[2017-01-24] MEDS: LEVOFLOXACIN 750 MG PREMIX INJ 150 ML IV SCH (16:40)
[2017-01-24] MEDS: MELATONIN 5 MG TAB PO SCH (21:11)
[2017-01-24] MEDS: ATORVASTATIN 20 MG TAB PO SCH (21:11)
[2017-01-24] MEDS: DONEPEZIL HCL 5 MG TAB PO SCH (21:11)
[2017-01-24] MEDS: SODIUM CHLOR 0.9% 1000 ML INJ 1,000 ML IV SCH (21:23)
[2017-01-25] VITALS (11 sets, daily range): BP systolic 115–166; BP diastolic 61–84; PULSE 58–106; RESP 18–20; TEMP 97.2–98.5; O2SAT 93–98
[2017-01-25] MEDS: AZTREONAM INJ 2,000 MG in SODIUM CHLORIDE 0.9% INJ 100 ML IV SCH ×2 (00:12→08:00)
[2017-01-25] MEDS: CHLORHEXIDINE GLUCONATE 2 % 1 PACK (2 CLOTHS) TOP SCH (04:00)
[2017-01-25] MEDS: LEVOTHYROXINE SODIUM 112 MCG TAB PO SCH (05:53)
[2017-01-25] MEDS: HEPARIN SODIUM - SQ 10,000 UNITS/ML VIAL SQ SCH ×2 (05:54→18:00)
[2017-01-25] MEDS: INSULIN ASPART SUPPLEMENTAL SCALE SQ SCH ×4 (08:00→22:00)
[2017-01-25] MEDS: TAMSULOSIN HCL 0.4 MG CAP PO SCH (08:49)
[2017-01-25] MEDS: methylPREDNISolone SOD SUCC 40 MG/1 ML VIAL IV PUSH SCH (08:49)
[2017-01-25] MEDS: PANTOPRAZOLE SODIUM 40 MG VIAL IV PUSH SCH (08:49)
[2017-01-25] MEDS: MEMANTINE HCL 10 MG TAB PO SCH ×2 (08:50→20:24)
[2017-01-25] MEDS: LISINOPRIL 20 MG TAB PO SCH (08:50)
[2017-01-25] MEDS: hydrALAZINE HCL 10 MG TAB PO SCH ×2 (08:50→20:34)
[2017-01-25] MEDS: BUDESONIDE-FORMOTEROL 160/4.5 MCG INHALER INH SCH ×2 (08:51→20:23)
[2017-01-25] MEDS: SODIUM CHLORIDE 0.9% FLUSH 10 ML FLUSH IV FLUSH SCH ×2 (08:51→20:34)
[2017-01-25] MEDS: HYDROCHLOROTHIAZIDE 25 MG TAB PO SCH (08:51)
[2017-01-25] MEDS: risperiDONE 0.25 MG TAB PO SCH ×2 (08:53→20:25)
--- NOTE | 2017-01-25 11:29 | HHI.PR ---
Subjective Remarks Follow-up COPD exacerbation 01/23/17-patient seen and examined, still on 4 L nasal cannula oxygen and denies any wheezing. Patient refuses BiPAP at night. Currently afebrile. Still with some cough production. Son by the bedside. Patient oriented to self and place but not date 01/24/17-patient seen and examined, reports improvement of symptoms of shortness of breath 01/25/17-patient seen and examined, denies any shortness of breath. by the bedside and would like patient when discharged to go home with a portable oxygen tank. Discussed discharge disposition to home with home healthcare versus SNF Objective Vitals Vital Signs Date Time Temp Pulse Resp B/P (MAP) Pulse Ox O2 Delivery O2 Flow Rate FiO2 01/25/17 08:27 98 Nasal Cannula 4.00 01/25/17 08:00 98.1 106 20 115/68 (84) 93 01/25/17 04:00 97.2 91 20 142/76 (98) 94 01/25/17 04:00 Bi-Pap 01/25/17 03:39 96 40 01/25/17 00:38 96 40 01/25/17 00:00 Bi-Pap 01/25/17 00:00 97.7 87 20 142/71 (94) 96 01/24/17 20:58 95 40 01/24/17 20:50 93 Nasal Cannula 5.00 01/24/17 20:10 Nasal Cannula 4.00 01/24/17 20:00 98.0 90 20 121/57 (78) 94 01/24/17 20:00 Nasal Cannula 4.00 01/24/17 16:00 97.6 72 18 139/79 (99) 95 01/24/17 12:00 98.0 89 18 153/68 (96) 93 I/O 01/24/17 01/24/17 01/24/17 01/25/17 01/25/17 01/25/17 07:00 15:00 23:00 07:00 15:00 23:00 Intake Total 100 ml 960 ml 740 ml Output Total 450 ml 900 ml 800 ml Balance -350 ml 60 ml -60 ml Intake Oral 960 ml 640 ml IV Total 100 ml 100 ml Output Urine Total 450 ml 900 ml 800 ml # Voids 2 # Bowel Movements 0 0 Result Diagram: 9/2362901/23/17629 Objective Remarks GENERAL: NAD and obese SKIN: Warm and dry. HEAD: Normocephalic. EYES: No scleral icterus. No injection or drainage. NECK: Supple, trachea midline. No JVD or lymphadenopathy. CARDIOVASCULAR: Regular rate and rhythm without murmurs, gallops, or rubs. RESPIRATORY: Breath sounds equal bilaterally. No accessory muscle use. GASTROINTESTINAL: Abdomen soft, non-tender, nondistended. MUSCULOSKELETAL: No cyanosis, or edema. BACK: Nontender without obvious deformity. No CVA tenderness. Procedures None A/P Problem List: (1) COPD exacerbation ICD Code: J44.1 - Chronic obstructive pulmonary disease with (acute) exacerbation Status: Acute (2) Community acquired pneumonia ICD Code: J18.9 - Pneumonia, unspecified organism Status: Acute (3) Dementia ICD Code: F03.90 - Unspecified dementia without behavioral disturbance Status: Chronic (4) DM (diabetes mellitus) ICD Code: E11.9 - Type 2 diabetes mellitus without complications Status: Chronic Assessment and Plan 76-year-old man with COPD exacerbation-improving Pulmonary hypertension Home O2 dependency Community-acquired pneumonia NAI Methylprednisolone 20 mg twice a day, taper steroids as tolerated. Continue Tessalon Pearls PRN Continue current antibiotics including Levaquin but discontinue Azactam Duo nebs every 6 hours scheduled, every 2 hours when necessary Appreciate input from pulmonary medicine BiPAP as needed Alzheimer's Dementia Parkinsonian symptoms Depressive disorder Diabetic polyneuropathy Continue Aricept,Memantine,and Risperdal Continue to hold Citalopram for now Hypertension Dyslipidemia Currently on Norvasc and Prinivil Continue atorvastatin BPH Continue Flomax Community acquired pneumonia Leukocytosis Continue Levaquin and discontinue Azactam as patient with blood culture negative 5 days Hypothyroidism Diabetes mellitus Continue levothyroxine 112 mcg Prophylaxis: GI Prophylaxis Protonix DVT Prophylaxis -- SCDs Heparin 5000u BI CODE STATUS DNR Discharge Planning Discharge within next day to home with home health care versus SNF Problem Qualifiers (1) Community acquired pneumonia: Qualified Codes: J18.1 - Lobar pneumonia, unspecified organism Rober Vogel MD Jan 25, 2017 11:29
[2017-01-25] MEDS ORDERED: DOCUSATE SODIUM 50 MG/SENNA 8.6 MG TAB PO PRN (11:30)
[2017-01-25] MEDS: LEVOFLOXACIN 750 MG PREMIX INJ 150 ML IV SCH (15:22)
--- NOTE | 2017-01-25 15:36 | HHI.HCPN ---
Reason for visit a. To assist with evaluation and management of symptoms including: dyspnea, anxiety, back pain b. To assist medical decision maker(s) with: better understanding of current medical conditions; weighing benefits/burdens of medical treatment options; making medical treatment decisions. Subjective/Interval History Patient seen and examined in room. at bedside. Patient is sitting in chair. verbalizes concern that patient is anxious, she would like this to be better controlled, though verbalizes concern that patient will be"too sleepy. " Will discuss with attending. Afebrile. Tachycardic. On oxygen via [place]. LBM 01/24/17. No new labs or imaging. Discussed with rn case management, possible DC to rehab in the coming days. . Family/friend interactions See interval note. . Advance Directives Living Will: Completed, but not made available Health Care Surrogate: Completed, but not made available Advance Directive Specifics Health Care Surrogate(s): Patient with limited ability to participate secondary to mild dementia, forgetful. reports she is designated healthcare surrogate, Awaiting copies of healthcare surrogate documentation. per [place] statute she would be appropriate legal proxy. . Significant change in goals: NO CODE. Goals remain aggressive short of NO CODE. Will need [place] DNR on DC to SNF. . Objective Vital Signs Date Time Temp Pulse Resp B/P (MAP) Pulse Ox O2 Delivery O2 Flow Rate FiO2 01/25/17 12:04 98.5 100 19 124/67 (86) 93 01/25/17 08:27 98 Nasal Cannula 4.00 01/25/17 08:00 98.1 106 20 115/68 (84) 93 01/25/17 04:00 97.2 91 20 142/76 (98) 94 01/25/17 04:00 Bi-Pap 01/25/17 03:39 96 40 01/25/17 00:38 96 40 01/25/17 00:00 Bi-Pap 01/25/17 00:00 97.7 87 20 142/71 (94) 96 01/24/17 20:58 95 40 01/24/17 20:50 93 Nasal Cannula 5.00 01/24/17 20:10 Nasal Cannula 4.00 01/24/17 20:00 98.0 90 20 121/57 (78) 94 01/24/17 20:00 Nasal Cannula 4.00 01/24/17 16:00 97.6 72 18 139/79 (99) 95 Intake & Output 01/25/17 01/25/17 07:00 19:00 Intake Total 740 ml Output Total 800 ml Balance -60 ml Intake Oral 640 ml IV Total 100 ml Output Urine Total 800 ml Physical Exam CONSTITUTIONAL/GENERAL: This is an obese, mildly short of breath man. TUBES/LINES/DRAINS: Peripheral IV upper extremities, nasal cannula, SCDs. SKIN: Facial reddness. Multiple areas of Ecchymoses, small skin tears on upper extremities. No wounds seen anteriorly. Skin temperature appropriate. Not diaphoretic. CARDIOVASCULAR: Tachycardic. RESPIRATORY/CHEST: Symmetric, mildly labored respirations at times. Clear, diminished, faint expiratory wheezes to the right. breath sounds equal bilaterally. GASTROINTESTINAL: Abdomen soft, round, non-tender, nondistended. No palpable masses. No guarding. Bowel sounds present. GENITOURINARY: Without palpable bladder distension. Reports voids as needed. MUSCULOSKELETAL: Extremities without clubbing, cyanosis, or edema. No joint tenderness or effusion noted. No mottling or clubbing. NEUROLOGICAL: Awake and alert. Forgetful. Motor and sensory grossly within normal limits. Follows commands. Moves all extremities. PSYCHIATRIC: No obvious anxiety/depression. no apparent hallucinations or other psychotic thought process. . Diagnostic Tests Laboratory Laboratory Tests Test 01/22/17 15:20 01/23/17 06:30 Lactic Acid Level 3.1 mmol/L (0.4-2.0) White Blood Count 21.3 TH/MM3 (4.0-11.0) Red Blood Count 4.93 MIL/MM3 (4.50-5.90) Hemoglobin 14.0 GM/DL (13.0-17.0) Hematocrit 43.0 % (39.0-51.0) Mean Corpuscular Volume 87.3 FL (80.0-100.0) Mean Corpuscular Hemoglobin 28.3 PG (27.0-34.0) Mean Corpuscular Hemoglobin Concent 32.5 % (32.0-36.0) Red Cell Distribution Width 14.4 % (11.6-17.2) Platelet Count 284 TH/MM3 (150-450) Mean Platelet Volume 7.9 FL (7.0-11.0) Neutrophils (%) (Auto) 89.3 % (16.0-70.0) Lymphocytes (%) (Auto) 6.6 % (9.0-44.0) Monocytes (%) (Auto) 3.9 % (0.0-8.0) Eosinophils (%) (Auto) 0.0 % (0.0-4.0) Basophils (%) (Auto) 0.2 % (0.0-2.0) Neutrophils # (Auto) 19.0 TH/MM3 (1.8-7.7) Lymphocytes # (Auto) 1.4 TH/MM3 (1.0-4.8) Monocytes # (Auto) 0.8 TH/MM3 (0-0.9) Eosinophils # (Auto) 0.0 TH/MM3 (0-0.4) Basophils # (Auto) 0.0 TH/MM3 (0-0.2) CBC Comment AUTO DIFF Differential Total Cells Counted 100 Neutrophils % (Manual) 81 % (16-70) Band Neutrophils % 3 % (0-6) Lymphocytes % 8 % (9-44) Monocytes % 7 % (0-8) Neutrophils # (Manual) 18.1 TH/MM3 (1.8-7.7) Metamyelocytes 1 % (0-1) Differential Comment FINAL DIFF MANUAL Platelet Estimate NORMAL (NORMAL) Platelet Morphology Comment NORMAL (NORMAL) Red Cell Morphology Comment NORMAL (NORMAL) Blood Urea Nitrogen 24 MG/DL (7-18) Creatinine 0.96 MG/DL (0.60-1.30) Random Glucose 164 MG/DL (74-106) Calcium Level 8.5 MG/DL (8.5-10.1) Sodium Level 137 MEQ/L (136-145) Potassium Level 4.0 MEQ/L (3.5-5.1) Chloride Level 101 MEQ/L (98-107) Carbon Dioxide Level 28.9 MEQ/L (21.0-32.0) Anion Gap 7 MEQ/L (5-15) Estimat Glomerular Filtration Rate 76 ML/MIN (>89) Result Diagram: 01/23/1730 01/23/1730 Microbiology Microbiology Date/Time Source Procedure Growth Status 01/20/17 15:05 Blood Peripheral Aerobic Blood Culture - Final NO GROWTH IN 5 DAYS Complete 01/20/17 15:05 Blood Peripheral Anaerobic Blood Culture - Final NO GROWTH IN 5 DAYS Complete Imaging Last Impressions Chest X-Ray 01/22/17 0000 Signed Impressions: Service Date/Time: Sunday, January 22, 2017 09:38 - CONCLUSION: 1. Chronic appearing interstitial changes. Stable compared to previous. 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 Spiritual: Taoist Legal:Patient with limited ability to participate secondary to mild dementia, forgetful. reports she is designated healthcare surrogate, Awaiting copies of healthcare surrogate documentation. per [place] statute she would be appropriate legal proxy. Ethical issues impacting care: No known concerns at this time. . Important Contacts Shalini Lee [phone] . Prognosis This patient was admitted for acute COPD exacerbation. He has underlying mild dementia. He has not had multiple recent hospitalizations or admissions for COPD, last admission 2015. He has had about 1 month of recent upper respiratory illness for which he underwent outpatient treatment. CXR stable, respiratory status improving. Appears he can get through current acute episode will likely be able to discharge home to prior level of function. Does Remain high risk for ongoing exacerbations, complications and setbacks due to COPD, mild dementia. Code Status: No Code Plan * Legal decision maker:Patient with limited ability to participate secondary to mild dementia, forgetful. reports she is designated healthcare surrogate, Awaiting copies of healthcare surrogate documentation. per [place] statute she would be appropriate legal proxy. * Goals: Goals of this time are aggressive, inpatient wish to maximize current treatments available, short of resuscitation, in hopes of getting patient back home to most recent level of function. They understand patient does remain at risk for continued trajectory of decline, we did have some discussion regarding hospice for advanced COPD if he continues to experience exacerbations and does not improve. Also requests patient with anxiety. * NO CODE (DNR/DNI) - [place] DNR on chart for MD signature. * SYMPTOMS: -- anxiety - patient and family endorse occasional anxiety which worsens with COPD exacerbations. Does not require any chronic PRNs in the home setting. PRN Lorazepam has been discontinued. Could consider low dose Ativan 0.5mg PO every 6 hours PRN anxiety. -- dyspnea- patient with advanced COPD, O2 dependent, BiPAP dependent in the home setting. Currently on nebulizers, antibiotics and BiPAP at night, not tolerating nasal cannula O2. -- chronic back pain 2/2 to old surgical fusion -- does not want strong narcotic medication, indicates usually uses nsaids/naproxen prn in the home. Has prn Tylenol available, no NSAIDs at this time due to potential risks per discussion with medical attending; d/w pt/, they will utilize PRN Tylenol. Cont to monitor. -- deconditioning- continue PT/OT plan for DC to rehab in the coming day(s). * Palliative care will continue to follow during hospital course as condition evolves, to assist patient/decision-maker with understanding of medical conditions, weighing benefits/burdens of treatment options, for clarification of goals of treatment. Additionally will assist with any symptoms of palliative concern. , Attestation To help prompt me to consider important information that might be impacting today's encounter and assessment, information from prior notes written by myself or my colleagues may have been "brought forward" into today's note. My signature on this note, however, is an attestation that I personally performed the exam, history, and/or decision-making noted today, and, unless otherwise indicated, the interactions with patient, family, and staff as well as the review of records all occurred today. I also attest that the listed assessment and stated plan reflect my best clinical judgment today based on the combination of historical information, prior notes, and today's exam/ interactions. When time spent is documented, it refers only to time spent today by the signer, or if indicated, combined time spent today by collaborating physician/nurse practitioner. Reyna Chavez Jan 25, 2017 15:36
--- NOTE | 2017-01-25 19:44 | HHI.PR ---
Subjective Remarks 76 YOWM with 02 dependant COPD,NAI, has lung infilt Used CPAP last night Up in chair Mild sob No CP Objective Vital Signs Vital Signs Date Time Temp Pulse Resp B/P (MAP) Pulse Ox O2 Delivery O2 Flow Rate FiO2 01/25/17 19:34 94 Nasal Cannula 4.00 01/25/17 19:34 94 40 01/25/17 17:44 94 Nasal Cannula 4.00 01/25/17 17:00 16 01/25/17 16:33 98.3 105 20 127/61 (83) 95 01/25/17 12:04 98.5 100 19 124/67 (86) 93 01/25/17 08:27 98 Nasal Cannula 4.00 01/25/17 08:00 95 Nasal Cannula 4.00 01/25/17 08:00 98.1 106 20 115/68 (84) 93 01/25/17 04:00 97.2 91 20 142/76 (98) 94 01/25/17 04:00 Bi-Pap 01/25/17 03:39 96 40 01/25/17 00:38 96 40 01/25/17 00:00 Bi-Pap 01/25/17 00:00 97.7 87 20 142/71 (94) 96 01/24/17 20:58 95 40 01/24/17 20:50 93 Nasal Cannula 5.00 01/24/17 20:10 Nasal Cannula 4.00 01/24/17 20:00 98.0 90 20 121/57 (78) 94 01/24/17 20:00 Nasal Cannula 4.00 I/O 01/24/17 01/24/17 01/24/17 01/25/17 01/25/17 01/25/17 07:00 15:00 23:00 07:00 15:00 23:00 Intake Total 100 ml 960 ml 740 ml 600 ml Output Total 450 ml 900 ml 800 ml 840 ml Balance -350 ml 60 ml -60 ml -240 ml Intake Oral 960 ml 640 ml 600 ml IV Total 100 ml 100 ml Output Urine Total 450 ml 900 ml 800 ml 840 ml # Voids 2 # Bowel Movements 0 0 1 Result Diagram: 01/23/1762901/23/17629 Objective Remarks GENERAL: Obese Wm, mild sob SKIN: Warm and dry. HEAD: Normocephalic. EYES: No scleral icterus. No injection or drainage. NECK: Supple, trachea midline. No JVD or lymphadenopathy. CARDIOVASCULAR: Regular rate and rhythm without murmurs, gallops, or rubs. RESPIRATORY: Breath sounds equal bilaterally. No accessory muscle use. GASTROINTESTINAL: Abdomen soft, non-tender, nondistended. MUSCULOSKELETAL: No cyanosis, or edema. BACK: Nontender without obvious deformity. No CVA tenderness. A/P Assessment and Plan COPD Exac NAI Lung infilt HTN Dementia PLAN: Aerosol nebs Cont Abx Supplement 02 CPAP at night Tessalon 200 mg TID DC Solumedrol Pred 10 mg po BID DC plans underway Henrique Myers MD Jan 25, 2017 19:44
[2017-01-25] MEDS: MELATONIN 5 MG TAB PO SCH (20:33)
[2017-01-25] MEDS: predniSONE 10 MG TAB PO SCH (20:33)
[2017-01-25] MEDS: DONEPEZIL HCL 5 MG TAB PO SCH (20:33)
[2017-01-25] MEDS: ATORVASTATIN 20 MG TAB PO SCH (20:34)
[2017-01-26] VITALS: BP 156/72; PULSE 78; RESP 20; TEMP 98.3; O2SAT 94
[2017-01-26 04:00] VITALS: BP 159/76; PULSE 64; RESP 18; TEMP 98.2; O2SAT 95
[2017-01-26] MEDS: CHLORHEXIDINE GLUCONATE 2 % 1 PACK (2 CLOTHS) TOP SCH (04:00)
[2017-01-26] MEDS: LEVOTHYROXINE SODIUM 112 MCG TAB PO SCH (05:57)
[2017-01-26] MEDS: HEPARIN SODIUM - SQ 10,000 UNITS/ML VIAL SQ SCH (05:57)
[2017-01-26 08:00] VITALS: BP 126/68; PULSE 66; RESP 18; TEMP 97.5; O2SAT 94
[2017-01-26] MEDS: INSULIN ASPART SUPPLEMENTAL SCALE SQ SCH ×2 (08:00→12:00)
[2017-01-26 08:24] LABS: AUTOMATED NEUTROPHIL # 14.8 TH/MM3 (1.8-7.7); BASOPHIL % 0.2 % (0.0-2.0); EOSINOPHIL % 0.1 % (0.0-4.0); HEMATOCRIT 44.5 % (39.0-51.0); LYMPHOCYTE # 1.8 TH/MM3 (1.0-4.8); MEAN CELL VOLUME 86.6 FL (80.0-100.0); MEAN CORPUSCULAR HEMOGLOBIN 28.2 PG (27.0-34.0); MEAN CORPUSCULAR HGB CONC 32.5 % (32.0-36.0); MONO % 6.6 % (0.0-8.0); NEUT % 83.1 % (16.0-70.0); PLATELET COUNT 254 TH/MM3 (150-450); RED BLOOD COUNT 5.15 MIL/MM3 (4.50-5.90); RED CELL DISTRIBUTION WIDTH 14.3 % (11.6-17.2); WHITE BLOOD COUNT 17.8 TH/MM3 (4.0-11.0)
[2017-01-26 08:30] LABS: HEMO FLAGS AUTO DIFF
[2017-01-26 08:49] LABS: BICARBONATE 30.2 MEQ/L (21.0-32.0); POTASSIUM 3.6 MEQ/L (3.5-5.1)
[2017-01-26 09:00] VITALS: O2SAT 93
[2017-01-26] MEDS ORDERED: PANTOPRAZOLE SOD 40 MG DELAYED RELEASE TAB PO SCH (09:00)
[2017-01-26] MEDS: SODIUM CHLORIDE 0.9% FLUSH 10 ML FLUSH IV FLUSH SCH (09:00)
[2017-01-26] MEDS: hydrALAZINE HCL 10 MG TAB PO SCH (09:16)
[2017-01-26] MEDS: LISINOPRIL 20 MG TAB PO SCH (09:16)
[2017-01-26] MEDS: TAMSULOSIN HCL 0.4 MG CAP PO SCH (09:16)
[2017-01-26] MEDS: MEMANTINE HCL 10 MG TAB PO SCH (09:16)
[2017-01-26] MEDS: predniSONE 10 MG TAB PO SCH (09:17)
[2017-01-26] MEDS: HYDROCHLOROTHIAZIDE 25 MG TAB PO SCH (09:17)
[2017-01-26] MEDS: risperiDONE 0.25 MG TAB PO SCH (09:17)
[2017-01-26] MEDS: BUDESONIDE-FORMOTEROL 160/4.5 MCG INHALER INH SCH (09:18)
[2017-01-26 09:50] LABS: BANDS 3 % (0-6); METAMYELOCYTES 1 % (0-1); MYELOCYTES 4 % (0-0); NEUTROPHIL # MANUAL DIFF 15.7 TH/MM3 (1.8-7.7); PLATELET ESTIMATE SMEAR NORMAL (NORMAL); PLATELET MORPHOLOGY NORMAL (NORMAL); POLYS (SEG NEUTROPHILS) 80 % (16-70); SCAN/DIFF FINAL DIFF MANUAL; TOXIC GRANULATION 1+ (NORMAL); WBC DIFF SAMPLE 100
[2017-01-26] MEDS ORDERED: LEVA500T20 PO (10:17)
[2017-01-26] MEDS ORDERED: PRED10 PO (10:17)
--- NOTE | 2017-01-26 10:20 | HHI.PR ---
Subjective Remarks Follow-up COPD exacerbation 01/23/17-patient seen and examined, still on 4 L nasal cannula oxygen and denies any wheezing. Patient refuses BiPAP at night. Currently afebrile. Still with some cough production. Son by the bedside. Patient oriented to self and place but not date 01/24/17-patient seen and examined, reports improvement of symptoms of shortness of breath 01/25/17-patient seen and examined, denies any shortness of breath. by the bedside and would like patient when discharged to go home with a portable oxygen tank. Discussed discharge disposition to home with home healthcare versus SNF 01/26/17-patient seen and examined, no acute event overnight .94% on 4 L oxygen and patient denies any wheezing. by the bedside Objective Vitals Vital Signs Date Time Temp Pulse Resp B/P (MAP) Pulse Ox O2 Delivery O2 Flow Rate FiO2 01/26/17 08:00 97.5 66 18 126/68 (87) 94 01/26/17 04:00 98.2 64 18 159/76 (103) 95 01/26/17 00:00 98.3 78 20 156/72 (100) 94 01/25/17 20:25 Nasal Cannula 4.00 01/25/17 20:00 97.5 58 18 166/84 (111) 94 01/25/17 19:34 94 Nasal Cannula 4.00 01/25/17 19:34 94 40 01/25/17 17:44 94 Nasal Cannula 4.00 01/25/17 17:00 16 01/25/17 16:33 98.3 105 20 127/61 (83) 95 01/25/17 12:04 98.5 100 19 124/67 (86) 93 I/O 01/25/17 01/25/17 01/25/17 01/26/17 01/26/17 01/26/17 07:00 15:00 23:00 07:00 15:00 23:00 Intake Total 740 ml 600 ml 360 ml Output Total 800 ml 1040 ml 450 ml Balance -60 ml -440 ml -90 ml Intake Oral 640 ml 600 ml 360 ml IV Total 100 ml Output Urine Total 800 ml 1040 ml 450 ml # Bowel Movements 1 0 Result Diagram: 01/26/17 0745 01/26/1745 Objective Remarks GENERAL: NAD and obese SKIN: Warm and dry. HEAD: Normocephalic. EYES: No scleral icterus. No injection or drainage. NECK: Supple, trachea midline. No JVD or lymphadenopathy. CARDIOVASCULAR: Regular rate and rhythm without murmurs, gallops, or rubs. RESPIRATORY: Breath sounds equal bilaterally. No accessory muscle use. GASTROINTESTINAL: Abdomen soft, non-tender, nondistended. MUSCULOSKELETAL: No cyanosis, or edema. BACK: Nontender without obvious deformity. No CVA tenderness. Procedures None A/P Problem List: (1) COPD exacerbation ICD Code: J44.1 - Chronic obstructive pulmonary disease with (acute) exacerbation Status: Acute (2) Community acquired pneumonia ICD Code: J18.9 - Pneumonia, unspecified organism Status: Acute (3) Dementia ICD Code: F03.90 - Unspecified dementia without behavioral disturbance Status: Chronic (4) DM (diabetes mellitus) ICD Code: E11.9 - Type 2 diabetes mellitus without complications Status: Chronic Assessment and Plan 76-year-old man with COPD exacerbation-improving Pulmonary hypertension Home O2 dependency Community-acquired pneumonia ANI Started post Methylprednisolone 20 mg twice a day, and currently on prednisone 10 mg twice a day Continue Tessalon Pearls PRN Continue current antibiotics including Levaquin Duo nebs every 6 hours scheduled, every 2 hours when necessary Appreciate input from pulmonary medicine BiPAP as needed Alzheimer's Dementia Parkinsonian symptoms Depressive disorder Diabetic polyneuropathy Continue Aricept,Memantine,and Risperdal Continue to hold Citalopram for now Hypertension Dyslipidemia Currently on Norvasc and Prinivil Continue atorvastatin BPH Continue Flomax Community acquired pneumonia Leukocytosis Continue Levaquin Hypothyroidism Diabetes mellitus Continue levothyroxine 112 mcg Prophylaxis: GI Prophylaxis Protonix DVT Prophylaxis -- SCDs Heparin 5000u BI CODE STATUS DNR Discharge Planning Discharge within next day to home with home health care versus SNF Problem Qualifiers (1) Community acquired pneumonia: Qualified Codes: J18.1 - Lobar pneumonia, unspecified organism Rober Vogel MD Jan 26, 2017 10:20
--- NOTE | 2017-01-26 10:23 | HHI.DS ---
Discharge Summary Admission Date Jan 20, 2017 at 15:38 Discharge Date: Jan 26, 2017 Admitting Diagnosis COPD exacerbation, pneumonia (1) COPD exacerbation ICD Code: J44.1 - Chronic obstructive pulmonary disease with (acute) exacerbation Status: Acute (2) Community acquired pneumonia ICD Code: J18.9 - Pneumonia, unspecified organism Status: Acute (3) Dementia ICD Code: F03.90 - Unspecified dementia without behavioral disturbance Status: Chronic (4) DM (diabetes mellitus) ICD Code: E11.9 - Type 2 diabetes mellitus without complications Status: Chronic Procedures None Brief History - From Admission This is a 76-year-old obese male with history of COPD who presents with his for evaluation of wheezing, cough, shortness of breath. The symptoms started 1 week ago, gradually progressed since then. The patient is followed by Dr. Myers, technical support representative. He is on prednisone chronically 5 mg BID with his primary care physician increased to 40 mg starting yesterday. He was also started on levofloxacin yesterday. His symptoms worsened today which prompted evaluation. He reports a cough with green sputum production. He denies chest pain, fevers or chills, recent travel, calf swelling, abdominal pain, nausea or vomiting. He uses a CPAP at night but is found himself wearing it for most of the day over the past week. He also utilizes home O2 @2LPM when necessary. In the ED the patient received antibiotics that she is a male, and levofloxacin, and was maintained on BiPAP at 100% which is currently being wean down to 40%. The patient has a medical history significant for dementia, and patient's spouse provided medical history. Critical care medicine was consulted. [facility] Past Medical History Asthma: Yes Anxiety: Yes Depression: Yes Cancer: No Cardiovascular Problems: No High Cholesterol: Yes Chemotherapy: No Chest Pain: Yes COPD: Yes (02 dependent and cpap machine ) Dementia: Yes Diabetes: Yes Patient Takes Glucophage: Yes (01/20/17 0900) Endocrine: No Genitourinary: No Hepatitis: No Hiatal Hernia: Yes Hypertension: Yes Immune Disorder: No Musculoskeletal: Yes (ARTHRITIS) Neurologic: Yes (DEMENTIA) Psychiatric: No Reproductive: No Respiratory: Yes (PULMONARY HTN) Radiation Therapy: No Thyroid Disease: Yes (HYPO) ?: Not Past Surgical History Abdominal Surgery: Yes (UMB. HERNIA REPAIR) AICD: No Eye Surgery: Yes (BILAT. CARARCT SX) Joint Replacement: No Oral Surgery: Yes (TONSILS) Pacemaker: No Tonsillectomy: Yes Other Surgery: Yes Social History Alcohol Use: Yes (OCC) Tobacco Use: No Substance Use: No Allergies-Medications (Allergen,Severity, Reaction): Coded Allergies: Penicillins (Verified Allergy, Unknown, 01/20/17) cephalexin (Verified Allergy, Unknown, 01/20/17) codeine (Unverified Allergy, Unknown, 01/20/17) Reported Meds & Prescriptions Reported Meds & Active Scripts Active Reported Lipitor (Atorvastatin Calcium) 20 Mg Tab 20 Mg PO HS Omeprazole 20 Mg Tab 20 Mg PO DAILY Celexa (Citalopram Hydrobromide) 20 Mg Tab 20 Mg PO DAILY Amlodipine (Amlodipine Besylate) 10 Mg Tab 10 Mg PO DAILY Aricept (Donepezil HCl) 5 Mg Tablet 5 Mg PO HS Lisinopril 40 Mg Tab 40 Mg PO DAILY Risperdal (Risperidone) 0.25 Mg Tab 0.25 Mg PO BID Tamsulosin (Tamsulosin HCl) 0.4 Mg Cap 0.4 Mg PO DAILY Take once a day 30 minutes after the same meal each day Loperamide Liq (Loperamide HCl) 1 Mg/7.5 Ml Liq 1 Mg PO PRN Namenda (Memantine) 10 Mg Tab 10 Mg PO BID Hydralazine HCl 10 Mg Tablet 10 Mg PO BID Hydrochlorothiazide 25 Mg Tab 25 Mg PO DAILY Ipratropium Neb (Ipratropium O'Brien) 0.5 Mg/2.5 Ml Amp 0.5 Mg NEB BID Claritin (Loratadine) 10 Mg Tablet 10 Mg PO DAILY Advair Diskus Inh (Fluticasone-Salmeterol Inh) 500-50 Mcg/Blist Aer 1 Puff INH BID Rinse mouth after use. Ventolin Hfa 18 GM Inh (Albuterol Sulfate) 90 Mcg/Act Aer 2 Puff INH Q4H PRN Levothyroxine (Levothyroxine Sodium) 112 Mcg Tab 112 Mcg PO DAILY Metformin (Metformin HCl) 500 Mg Tab 500 Mg PO DAILY With a meal Albuterol Neb (Albuterol Sulfate) 2.5 Mg/3 Ml Neb 2.5 Mg NEB QID PRN Tessalon Perles (Benzonatate) 100 Mg Cap 100 Mg PO TID PRN Levaquin (Levofloxacin) 500 Mg Tablet 500 Mg PO DAILY 10 Days Stop date: 01/29/2017 Prednisone 10 Mg Tab PO DAILY Titrating dose: 4 tabs (40mg) on days 1,2,3, then 3 tabs (30mg) on days 4,5,6 and then 1 tab twice a day Review of Systems Except as stated in HPI: all other systems reviewed are Neg CBC/BMP: 01/26/17 0745 01/26/17 0745 Significant Findings Laboratory Tests Test 01/26/17 07:45 White Blood Count 17.8 TH/MM3 (4.0-11.0) Neutrophils (%) (Auto) 83.1 % (16.0-70.0) Neutrophils # (Auto) 14.8 TH/MM3 (1.8-7.7) Monocytes # (Auto) 1.2 TH/MM3 (0-0.9) Neutrophils % (Manual) 80 % (16-70) Lymphocytes % 6 % (9-44) Neutrophils # (Manual) 15.7 TH/MM3 (1.8-7.7) Myelocytes 4 % (0-0) Toxic Granulation 1+ (NORMAL) Blood Urea Nitrogen 19 MG/DL (7-18) Random Glucose 129 MG/DL (74-106) Calcium Level 8.2 MG/DL (8.5-10.1) Estimat Glomerular Filtration Rate 81 ML/MIN (>89) PE at Discharge GENERAL: NAD and obese SKIN: Warm and dry. HEAD: Normocephalic. EYES: No scleral icterus. No injection or drainage. NECK: Supple, trachea midline. No JVD or lymphadenopathy. CARDIOVASCULAR: Regular rate and rhythm without murmurs, gallops, or rubs. RESPIRATORY: Breath sounds equal bilaterally. No accessory muscle use. GASTROINTESTINAL: Abdomen soft, non-tender, nondistended. MUSCULOSKELETAL: No cyanosis, or edema. BACK: Nontender without obvious deformity. No CVA tenderness. Hospital Course Patient initially admitted under the care of critical care medicine secondary to COPD exacerbation for which she was started on IV Solu-Medrol IV antibiotics along with long-acting and short-acting beta agonist with consultation to pulmonary medicine. His care was eventually transferred to hospitalist. Patient remained stable. Prior to discharge he was started on by mouth prednisone and antibiotics were de-escalated. Physical therapy was consulted. He was continued on treatment for other chronic medical conditions. DVT and GI prophylaxis were provided. Prior to discharge, patient's condition improved and vital remained stable. He will be discharged on taper dose of steroid and 3 days of Levaquin 500 milligrams by mouth daily. Pt Condition on Discharge: Stable Discharge Disposition: Discharge to SNF Discharge Time: > 30 minutes Discharge Instructions DIET: Follow Instructions for: Diabetic Diet Activities you can perform: Regular-No Restrictions Follow up Referrals: PCP Follow-up - 2-3 Days Pulmonology New Medications: Levofloxacin (Levaquin) 500 Mg Tablet 500 MG PO DAILY for Infection, #3 TAB 0 Refills Prednisone (Prednisone) 10 Mg Tab 10 MG PO BID for Infection, #14 TAB Continued Medications: Albuterol 18 GM Inh (Ventolin Hfa 18 GM Inh) 90 Mcg/Act Aer 2 PUFF INH Q4H PRN for SHORTNESS OF BREATH, #1 INHALER 0 Refills Albuterol Neb (Albuterol Neb) 2.5 Mg/3 Ml Neb 2.5 MG NEB QID PRN for SHORTNESS OF BREATH, #1 NEBULE 0 Refills Amlodipine (Amlodipine) 10 Mg Tab 10 MG PO DAILY for Blood Pressure Management, #30 TAB 0 Refills Atorvastatin (Lipitor) 20 Mg Tab 20 MG PO HS for Cholesterol Management, #30 TAB 0 Refills Benzonatate (Tessalon Perles) 100 Mg Cap 100 MG PO TID PRN for COUGH, CAP 0 Refills Citalopram (Celexa) 20 Mg Tab 20 MG PO DAILY for Control Depression, #30 TAB 0 Refills Donepezil HCl (Aricept) 5 Mg Tablet 5 MG PO HS Fluticasone-Salmeterol Inh (Advair Diskus Inh) 500-50 Mcg/Blist Aer 1 PUFF INH BID, #1 INHALER 0 Refills Rinse mouth after use. Hydralazine HCl (Hydralazine HCl) 10 Mg Tablet 10 MG PO BID Hydrochlorothiazide (Hydrochlorothiazide) 25 Mg Tab 25 MG PO DAILY, #30 TAB 0 Refills Ipratropium Neb (Ipratropium Neb) 0.5 Mg/2.5 Ml Amp 0.5 MG NEB BID for Breathing Treatment, #60 NEBULE 0 Refills Levothyroxine (Levothyroxine) 112 Mcg Tab 112 MCG PO DAILY for Thyroid, #30 TAB 0 Refills Lisinopril (Lisinopril) 40 Mg Tab 40 MG PO DAILY for Blood Pressure Management, #30 TAB 0 Refills Loratadine (Claritin) 10 Mg Tablet 10 MG PO DAILY Memantine (Namenda) 10 Mg Tab 10 MG PO BID for Alzheimer Disease, #30 TAB 0 Refills Metformin (Metformin) 500 Mg Tab 500 MG PO DAILY for Blood Sugar Management, #30 TAB 0 Refills With a meal Omeprazole (Omeprazole) 20 Mg Tab 20 MG PO DAILY, #30 TAB 0 Refills Risperidone (Risperdal) 0.25 Mg Tab 0.25 MG PO BID, #60 TAB 0 Refills Tamsulosin (Tamsulosin) 0.4 Mg Cap 0.4 MG PO DAILY for Manage Prostate Problems, #30 CAP 0 Refills Take once a day 30 minutes after the same meal each day Discontinued Medications: Levofloxacin (Levaquin) 500 Mg Tablet 500 MG PO DAILY for Infection for 10 Days, #10 TAB 0 Refills Stop date: 01/29/2017 Loperamide Liq (Loperamide Liq) 1 Mg/7.5 Ml Liq 1 MG PO PRN for DIARRHEA Rober Vogel MD Jan 26, 2017 10:23
[2017-01-26 12:00] VITALS: BP 124/73; PULSE 79; RESP 22; TEMP 97.8; O2SAT 93
--- NOTE | 2017-01-26 17:34 | HHI.PR ---
Subjective Remarks 76 YOWM with 02 dependant COPD,NAI, has lung infilt Used CPAP last night Up in chair Mild sob Objective Vital Signs Vital Signs Date Time Temp Pulse Resp B/P (MAP) Pulse Ox O2 Delivery O2 Flow Rate FiO2 01/26/17 12:00 97.8 79 22 124/73 (90) 93 01/26/17 09:00 93 Nasal Cannula 4.00 01/26/17 08:00 97.5 66 18 126/68 (87) 94 01/26/17 04:00 98.2 64 18 159/76 (103) 95 01/26/17 00:00 98.3 78 20 156/72 (100) 94 01/25/17 20:25 Nasal Cannula 4.00 01/25/17 20:00 97.5 58 18 166/84 (111) 94 01/25/17 19:34 94 Nasal Cannula 4.00 01/25/17 19:34 94 40 01/25/17 17:44 94 Nasal Cannula 4.00 I/O 01/25/17 01/25/17 01/25/17 01/26/17 01/26/17 01/26/17 07:00 15:00 23:00 07:00 15:00 23:00 Intake Total 740 ml 600 ml 360 ml Output Total 800 ml 1040 ml 450 ml Balance -60 ml -440 ml -90 ml Intake Oral 640 ml 600 ml 360 ml IV Total 100 ml Output Urine Total 800 ml 1040 ml 450 ml # Bowel Movements 1 0 Result Diagram: 01/26/17 0745 01/26/17 0745 Objective Remarks GENERAL: Obese Wm, mild sob SKIN: Warm and dry. HEAD: Normocephalic. EYES: No scleral icterus. No injection or drainage. NECK: Supple, trachea midline. No JVD or lymphadenopathy. CARDIOVASCULAR: Regular rate and rhythm without murmurs, gallops, or rubs. RESPIRATORY: Breath sounds equal bilaterally. No accessory muscle use. GASTROINTESTINAL: Abdomen soft, non-tender, nondistended. MUSCULOSKELETAL: No cyanosis, or edema. BACK: Nontender without obvious deformity. No CVA tenderness. A/P Assessment and Plan COPD Exac NAI Lung infilt HTN Dementia PLAN: Aerosol nebs Cont Abx Supplement 02 CPAP at night Tessalon 200 mg TID DC Solumedrol Pred 10 mg po BID DC plans for SNF Will FU in office Henrique Myers MD Jan 26, 2017 17:34
== END 2017-01-26 15:50 | DRG 190 ==
LOC: NEPE 13:10 → NEDA 15:38 → HIME 18:58 → N04B 01-21 08:57 → HIME 01-21 09:21 → N04B 01-22 18:50
PROVIDERS: ADMIT Hospitalist; ATTEND Hospitalist
PROC: 5A09457 Assistance with Respiratory Ventilation, 24-96 Consecutive Hours, Continuous Positive Airway Pressure (ICD-10-PCS; principal; 2017-01-20)
DX: J44.0 Chronic obstructive pulmonary disease with (acute) lower respiratory infection (principal); J18.9 Pneumonia, unspecified organism; I27.2 Other secondary pulmonary hypertension; E11.42 Type 2 diabetes mellitus with diabetic polyneuropathy; G20 Parkinson's disease; G30.9 Alzheimer's disease, unspecified; F02.80 Dementia in other diseases classified elsewhere, unspecified severity, without behavioral disturbance, psychotic disturbance, mood disturbance, and anxiety; J44.1 Chronic obstructive pulmonary disease with (acute) exacerbation; E03.9 Hypothyroidism, unspecified; G47.33 Obstructive sleep apnea (adult) (pediatric); N40.0 Benign prostatic hyperplasia without lower urinary tract symptoms; Z99.81 Dependence on supplemental oxygen; E78.5 Hyperlipidemia, unspecified; F32.9 Major depressive disorder, single episode, unspecified; E66.9 Obesity, unspecified; Z68.34 Body mass index [BMI] 34.0-34.9, adult; F41.9 Anxiety disorder, unspecified; G89.29 Other chronic pain; I10 Essential (primary) hypertension; Z87.891 Personal history of nicotine dependence; Z79.84 Long term (current) use of oral hypoglycemic drugs; Z88.1 Allergy status to other antibiotic agents; Z88.5 Allergy status to narcotic agent; Z88.0 Allergy status to penicillin
CPT/HCPCS: 36600; 71010; 80048; 80053; 82550; 82805; 82948; 83605; 83735; 83880; 84100; 84484; 85007; 85027; 85610; 85730; 87040; 87641; 93005; 94002; 94003; 94640; 94664; 96365; 96375; C9113; J1644; J1815; J1956; J2060; J2920; J2930; J7030; J7512

== ENCOUNTER 2017-04-24 17:18 | Observation (INO) | payer MEDICARE, OTHER ==
[~2017-04-24] VITALS: Ht 170.2 cm; Wt 100.0 kg
[~2017-04-24 17:18] MED LIST changes: -1-ME1LIQ PO; +ADVA500A INH; +ALBU0.08 NEB; +AMLO10TA2 PO; -ARIC5TAB PO; +ARIC5TAB6 PO; +BENZ100 PO; +CELE20TA PO; -CITA20TA4 PO; +CLAR10TA7 PO; -HYDR-2768 PO; +HYDR-3798 PO; -HYDR10TA23 PO; +HYDR25TA5 PO; +IPRA0.02 NEB; +LEVA500T33 PO; +LEVO112T2 PO; -LEVO125T3 PO; -LEXA10TA PO; +LIPI20TA PO; -METF500 PO; +METF500T PO; -OMEP20TA39 PO; +OMEP20TA93 PO; +PRED10 PO; -PRED10PA PO; +RISP.25 PO; -SIMV20 PO; -TAMS0.4C4; +TAMS0.4C4 PO; +VENTAER INH; -VITA20002 PO; -[UNRECOGNIZED DRUG - CODE] PO
[2017-04-24 17:25] VITALS: BP 121/59; PULSE 108; RESP 22; TEMP 97.5; O2SAT 91
[2017-04-24] MEDS ORDERED: SODIUM CHLORIDE 0.9% FLUSH 10 ML FLUSH IV FLUSH PRN ×2 (18:00→21:15)
[2017-04-24 18:05] VITALS: RESP 18; O2SAT 95
[2017-04-24] MEDS ORDERED: CHOL1CHW5 PO (18:18)
[2017-04-24] MEDS ORDERED: SYMB80AE INH (18:18)
[2017-04-24] MEDS ORDERED: ARIC10TA9 PO (18:18)
[2017-04-24] MEDS ORDERED: PRED5TAB PO (18:18)
[2017-04-24] MEDS ORDERED: ANTI2TAB10 PO (18:19)
[2017-04-24 18:34] LABS: AUTOMATED NEUTROPHIL # 9.7 TH/MM3 (1.8-7.7); BASOPHIL # 0.1 TH/MM3 (0-0.2); BASOPHIL % 0.7 % (0.0-2.0); EOSINOPHIL % 0.1 % (0.0-4.0); HEMATOCRIT 45.2 % (39.0-51.0); HEMOGLOBIN 15.5 GM/DL (13.0-17.0); LYMPH % 11.2 % (9.0-44.0); LYMPHOCYTE # 1.4 TH/MM3 (1.0-4.8); MEAN CELL VOLUME 87.4 FL (80.0-100.0); MEAN CORPUSCULAR HEMOGLOBIN 29.9 PG (27.0-34.0); MEAN CORPUSCULAR HGB CONC 34.2 % (32.0-36.0); MEAN PLATELET VOLUME 8.5 FL (7.0-11.0); MONO % 12.2 % (0.0-8.0); MONOCYTE # 1.6 TH/MM3 (0-0.9); NEUT % 75.8 % (16.0-70.0); PLATELET COUNT 270 TH/MM3 (150-450); RED BLOOD COUNT 5.17 MIL/MM3 (4.50-5.90); RED CELL DISTRIBUTION WIDTH 16.1 % (11.6-17.2); WHITE BLOOD COUNT 12.8 TH/MM3 (4.0-11.0)
[2017-04-24 18:37] LABS: PROTHROMBIN TIME - PATIENT 10.3 SEC (9.8-11.6)
--- NOTE | 2017-04-24 18:47 | PD ---
HPI Chief Complaint: General Weakness Time Seen by Provider: 17:34 Travel History International Travel<30 days: No Contact w/Intl Traveler<30days: No Traveled to known affect area: No History of Present Illness HPI Patient is a 76-year-old male presents emergency department for evaluation of right-sided weakness. According to family patient is a history of dementia but awoke this morning with difficulty ambulating, also having right-sided weakness. No history of stroke, not on anticoagulation. He also has periods of diaphoresis with the patient's family states she's been having on and off for years, denies any chest pain. He is difficult to get history from him given his history of dementia, he is oriented to person and place. He does not know why he is here. Patient family has not noticed any facial droop increasing altered mental status. PFSH Past Medical History Asthma: Yes Anxiety: Yes Depression: Yes Cancer: No Cardiovascular Problems: Yes High Cholesterol: Yes Chemotherapy: No Chest Pain: Yes COPD: Yes (02 dependent and cpap machine ) Cerebrovascular Accident: No Dementia: Yes Diabetes: Yes Patient Takes Glucophage: Yes Endocrine: No Gastrointestinal Disorders: No Genitourinary: No Headaches: No Hepatitis: No Hiatal Hernia: Yes Hypertension: Yes Immune Disorder: No Implanted Vascular Access Dvce: No Medical other: No Musculoskeletal: Yes (ARTHRITIS) Neurologic: Yes (DEMENTIA) Psychiatric: No Reproductive: No Respiratory: Yes Migraines: No Radiation Therapy: No Seizures: No Thyroid Disease: Yes (HYPO) Past Surgical History Abdominal Surgery: Yes (UMB. HERNIA REPAIR) AICD: No Eye Surgery: Yes (BILAT. CARARCT SX) Joint Replacement: No Oral Surgery: Yes (TONSILS) Pacemaker: No Tonsillectomy: Yes Other Surgery: Yes Social History Alcohol Use: Yes (OCC) Tobacco Use: No Substance Use: No Allergies-Medications (Allergen,Severity, Reaction): Coded Allergies: Penicillins (Verified Allergy, Unknown, 04/24/17) cephalexin (Verified Allergy, Unknown, 04/24/17) codeine (Unverified Allergy, Unknown, 04/24/17) Uncoded Allergies: DIFFICULT AIRWAY (Adverse Reaction, Severe, 01/20/17) Reported Meds & Prescriptions Reported Meds & Active Scripts Active Reported Anti-Diarrheal (Loperamide HCl) 2 Mg Tab 2 Mg PO BID Symbicort Inh (Budesonide/Formoterol Fumarate) Unknown Strength Aero 1 Puff INH Q12HR PRN Vitamin D3 (Cholecalciferol (Vitamin D3)) 2,000 Unit Tab.chew 2,000 Units PO BID Prednisone 5 Mg Tab 5 Mg PO BID Aricept (Donepezil HCl) 10 Mg Tablet 10 Mg PO HS Lipitor (Atorvastatin Calcium) 20 Mg Tab 20 Mg PO DAILY Omeprazole 20 Mg Tab 20 Mg PO DAILY Celexa (Citalopram Hydrobromide) 20 Mg Tab 30 Mg PO DAILY Amlodipine (Amlodipine Besylate) 10 Mg Tab 10 Mg PO DAILY Lisinopril 40 Mg Tab 40 Mg PO DAILY Risperdal (Risperidone) 0.25 Mg Tab 0.25 Mg PO BID Tamsulosin (Tamsulosin HCl) 0.4 Mg Cap 0.4 Mg PO DAILY Take once a day 30 minutes after the same meal each day Namenda (Memantine) 10 Mg Tab 10 Mg PO BID Hydralazine HCl 10 Mg Tablet 10 Mg PO TID Hydrochlorothiazide 25 Mg Tab 25 Mg PO DAILY Claritin (Loratadine) 10 Mg Tablet 10 Mg PO BID Advair Diskus Inh (Fluticasone-Salmeterol Inh) 500-50 Mcg/Blist Aer 1 Puff INH BID Rinse mouth after use. Ventolin Hfa 18 GM Inh (Albuterol Sulfate) 90 Mcg/Act Aer 2 Puff INH Q4H PRN Levothyroxine (Levothyroxine Sodium) 112 Mcg Tab 112 Mcg PO DAILY Metformin (Metformin HCl) 500 Mg Tab 500 Mg PO DAILY With a meal Review of Systems ROS Limitations: Other: (dementia) Physical Exam Narrative GENERAL: Well-developed well-nourished, diaphoretic. SKIN: Focused skin assessment warm and diaphoretic HEAD: Atraumatic. Normocephalic. EYES: Pupils equal and round. No scleral icterus. No injection or drainage. ENT: No nasal bleeding or discharge. Mucous membranes pink and moist. NECK: Trachea midline. No JVD. CARDIOVASCULAR: Regular rate and rhythm. No murmur appreciated. RESPIRATORY: No accessory muscle use. Clear to auscultation. Breath sounds equal bilaterally. GASTROINTESTINAL: Abdomen soft, non-tender, nondistended. Hepatic and splenic margins not palpable. MUSCULOSKELETAL: No obvious deformities. No clubbing. No cyanosis. No edema. NEUROLOGICAL: Awake and alert. Oriented to self only. Cranial nerves II through XII are grossly intact and nonfocal, 5 out of 5 strength in all 4 extremity's. PSYCHIATRIC: Appropriate mood and affect; insight and judgment normal. Data Data Last Documented VS Vital Signs Date Time Temp Pulse Resp B/P (MAP) Pulse Ox O2 Delivery O2 Flow Rate FiO2 04/24/17 19:06 59 19 157/83 (107) 98 Nasal Cannula 2.00 04/24/17 17:25 97.5 Orders Orders Complete Blood Count With Diff (04/24/17 17:50) Comprehensive Metabolic Panel (04/24/17 17:50) Prothrombin Time / Inr (Pt) (04/24/17 17:50) Act Partial Throm Time (Ptt) (04/24/17 17:50) Troponin I (04/24/17 17:50) Thyroid Stimulating Hormone (04/24/17 17:50) Urinalysis - C+S If Indicated (04/24/17 17:50) Ct Brain W/O Iv Contrast(Rout) (04/24/17 17:50) Blood Glucose (04/24/17 17:50) Ecg Monitoring (04/24/17 17:50) Iv Access Insert/Monitor (04/24/17 17:50) Oximetry (04/24/17 17:50) Sodium Chloride 0.9% Flush (Ns Flush) (04/24/17 18:00) Mri Brain W/O Contrast (04/24/17 ) Mra Brain W/O Contrast (Cow) (04/24/17 ) Consult Neurology (04/24/17 ) Mra Carotids W Contrast (04/24/17 ) Admit Order (Ed Use Only) (04/24/17 20:23) Labs Laboratory Tests Test 04/24/17 18:05 04/24/17 18:22 White Blood Count 12.8 TH/MM3 Red Blood Count 5.17 MIL/MM3 Hemoglobin 15.5 GM/DL Hematocrit 45.2 % Mean Corpuscular Volume 87.4 FL Mean Corpuscular Hemoglobin 29.9 PG Mean Corpuscular Hemoglobin Concent 34.2 % Red Cell Distribution Width 16.1 % Platelet Count 270 TH/MM3 Mean Platelet Volume 8.5 FL Neutrophils (%) (Auto) 75.8 % Lymphocytes (%) (Auto) 11.2 % Monocytes (%) (Auto) 12.2 % Eosinophils (%) (Auto) 0.1 % Basophils (%) (Auto) 0.7 % Neutrophils # (Auto) 9.7 TH/MM3 Lymphocytes # (Auto) 1.4 TH/MM3 Monocytes # (Auto) 1.6 TH/MM3 Eosinophils # (Auto) 0.0 TH/MM3 Basophils # (Auto) 0.1 TH/MM3 CBC Comment AUTO DIFF Differential Total Cells Counted 100 Neutrophils % (Manual) 79 % Band Neutrophils % 1 % Lymphocytes % 7 % Monocytes % 10 % Neutrophils # (Manual) 10.6 TH/MM3 Metamyelocytes 2 % Myelocytes 1 % Differential Comment FINAL DIFF MANUAL Platelet Estimate NORMAL Platelet Morphology Comment NORMAL Red Cell Morphology Comment NORMAL Prothrombin Time 10.3 SEC Prothromb Time International Ratio 1.0 RATIO Activated Partial Thromboplast Time 25.0 SEC Blood Urea Nitrogen 21 MG/DL Creatinine 1.60 MG/DL Random Glucose 145 MG/DL Total Protein 7.4 GM/DL Albumin 3.7 GM/DL Calcium Level 9.5 MG/DL Alkaline Phosphatase 94 U/L Aspartate Amino Transf (AST/SGOT) 23 U/L Alanine Aminotransferase (ALT/SGPT) 32 U/L Total Bilirubin 0.9 MG/DL Sodium Level 138 MEQ/L Potassium Level 3.5 MEQ/L Chloride Level 100 MEQ/L Carbon Dioxide Level 28.7 MEQ/L Anion Gap 9 MEQ/L Estimat Glomerular Filtration Rate 42 ML/MIN Troponin I 0.02 NG/ML Thyroid Stimulating Hormone 3rd Gen 1.700 uIU/ML Urine Color YELLOW Urine Turbidity HAZY Urine pH 5.5 Urine Specific [place] 1.025 Urine Protein 30 mg/dL Urine Glucose (UA) NEG mg/dL Urine Ketones NEG mg/dL Urine Occult Blood NEG Urine Nitrite NEG Urine Bilirubin NEG Urine Urobilinogen LESS THAN 2.0 MG/DL Urine Leukocyte Esterase NEG Urine WBC 3 /hpf Urine Squamous Epithelial Cells 2 /hpf Urine Mucus MANY /lpf Microscopic Urinalysis Comment CATH-CULT NOT IND MDM Medical Decision Making Medical Screen Exam Complete: Yes Emergency Medical Condition: Yes Differential Diagnosis TIA, atrial flutter, electrolyte abnormality, dementia. Narrative Course Patient roomed in emergency department, diaphoretic on arrival the patient was noted to be in a flutter, nursing had converted him with a vagal maneuver prior to my arrival into sinus rhythm. He had an additional run of atrial flutter in the emergency department with rates as high as 150-160. This was self-limited and did not require any medical intervention. Patient signs symptoms consistent with TIA and workup is been ordered, discussed at length the patient with Dr. Baker at 1900 shift change to follow-up the workup and disposition the patient appropriately. Diagnosis Primary Impression: TIA (transient ischemic attack) Qualified Codes: G45.9 - Transient cerebral ischemic attack, unspecified Admitting Information Admitting Physician Requests: Admit Condition: Stable Carlos Enrique Lott MD Apr 24, 2017 18:47
[2017-04-24 18:52] LABS: ALBUMIN 3.7 GM/DL (3.4-5.0); AST (GOT) 23 U/L (15-37); BICARBONATE 28.7 MEQ/L (21.0-32.0); BLOOD UREA NITROGEN 21 MG/DL (7-18); CALCIUM 9.5 MG/DL (8.5-10.1); CHLORIDE 100 MEQ/L (98-107); GLOMERULAR FILTRATION RATE 42 ML/MIN (>89); GLUCOSE,RANDOM 145 MG/DL (74-106); SODIUM (NA) 138 MEQ/L (136-145)
[2017-04-24 18:54] LABS: ALT (GPT) 32 U/L (12-78)
[2017-04-24 19:04] LABS: ALKALINE PHOSPHATASE 94 U/L (45-117); TOTAL BILIRUBIN ADULT 0.9 MG/DL (0.2-1.0); TOTAL PROTEIN 7.4 GM/DL (6.4-8.2); TROPONIN I 0.02 NG/ML (0.02-0.05)
[2017-04-24 19:06] VITALS: BP 157/83; PULSE 59; RESP 19; O2SAT 98
[2017-04-24 19:17] LABS: BILIRUBIN, URINE NEG (NEG); BLOOD, URINE NEG (NEG); GLUCOSE,URINE NEG (NEG); KETONE, URINE NEG (NEG); MUCUS URINE MANY /lpf (OCC); NITRITE,URINE NEG (NEG); PH, URINE 5.5 (5.0-8.5); SQUAMOUS EPITHELIAL CELL URINE 2 /hpf (0-5); URINE COLOR YELLOW (YELLW/STRAW); URINE LEUKOCYTE ESTERASE NEG (NEG)
[2017-04-24 19:31] LABS: BANDS 1 % (0-6); LYMPHOCYTES 7 % (9-44); METAMYELOCYTES 2 % (0-1); MONOCYTES 10 % (0-8); MYELOCYTES 1 % (0-0); NEUTROPHIL # MANUAL DIFF 10.6 TH/MM3 (1.8-7.7); POLYS (SEG NEUTROPHILS) 79 % (16-70)
--- NOTE | 2017-04-24 19:33 | RADRPT ---
EXAM DATE/TIME: 04/24/2017 18:29 [facility] COMPARISON: No previous studies available for comparison. INDICATIONS : Right sided weakness. RADIATION DOSE: 38.84 CTDIvol (mGy) MEDICAL HISTORY : Dementia. Cardiovascular disease Hypertension.Diabetes SURGICAL HISTORY : Umbilical hernia repair. spinal fusion ENCOUNTER: Initial ACUITY: 1 day PAIN SCALE: 0/10 LOCATION: cranial TECHNIQUE: Multiple contiguous axial images were obtained of the head. Using automated exposure control and adj ustment of the mA and/or kV according to patient size, radiation dose was kept as low as reasonably a chievable to obtain optimal diagnostic quality images. DICOM format image data is available electro nically for review and comparison. FINDINGS: CEREBRUM: Bilateral basal ganglia lacunar infarcts. The ventricles are normal for age. No evidence of midline shift, mass lesion, hemorrhage or acute infarction. No extra-axial fluid collections are seen. Bilat eral chronic small vessel ischemic change of the periventricular white matter. POSTERIOR FOSSA: The cerebellum and brainstem are intact. The 4th ventricle is midline. The cerebellopontine angle i s unremarkable. EXTRACRANIAL: The visualized portion of the orbits is intact. SKULL: The calvaria is intact. No evidence of skull fracture. CONCLUSION: Chronic ischemic findings. No acute intracranial findings. Abiel Blanchard MD on April 24, 2017 at 19:30 Board Certified Radiologist. This report was verified electronically.
--- NOTE | 2017-04-24 20:23 | PD ---
Physical Exam Narrative Received sign out from previous team to follow up with CT scan and admit for TIA. 76yo M with PMH of dementia, HTN, hypothyroidism presents to the ED with right sided weakness and slurred speech that has resolved. Pt's gave most of the history and said she was waking him up and usually he can get up himself with walker but right side was weaker and his speech was slurred. Said he is back to baseline now. Pt denies any complaints. Labs reviewed, mild leukocytosis at 12.8. BUN/creatinine elevated at 21/1.60 which is higher than baseline. TSH normal. UA negative. CT brain showed chronic ischemic findings. No acute intracranial findings. Pt already took aspirin. Ordered MRI, MRA and neurology consult. Discussed with Dr. Garcia and accepted to her service for TIA. Data Data Last Documented VS Vital Signs Date Time Temp Pulse Resp B/P (MAP) Pulse Ox O2 Delivery O2 Flow Rate FiO2 04/24/17 19:06 59 19 157/83 (107) 98 Nasal Cannula 2.00 04/24/17 17:25 97.5 Orders Orders Complete Blood Count With Diff (04/24/17 17:50) Comprehensive Metabolic Panel (04/24/17 17:50) Prothrombin Time / Inr (Pt) (04/24/17 17:50) Act Partial Throm Time (Ptt) (04/24/17 17:50) Troponin I (04/24/17 17:50) Thyroid Stimulating Hormone (04/24/17 17:50) Urinalysis - C+S If Indicated (04/24/17 17:50) Ct Brain W/O Iv Contrast(Rout) (04/24/17 17:50) Blood Glucose (04/24/17 17:50) Ecg Monitoring (04/24/17 17:50) Iv Access Insert/Monitor (04/24/17 17:50) Oximetry (04/24/17 17:50) Sodium Chloride 0.9% Flush (Ns Flush) (04/24/17 18:00) Mri Brain W/O Contrast (04/24/17 ) Mra Brain W/O Contrast (Cow) (04/24/17 ) Mra Carotids W/O Contrast (04/24/17 ) Consult Neurology (04/24/17 ) Labs Laboratory Tests Test 04/24/17 18:05 04/24/17 18:22 White Blood Count 12.8 TH/MM3 Red Blood Count 5.17 MIL/MM3 Hemoglobin 15.5 GM/DL Hematocrit 45.2 % Mean Corpuscular Volume 87.4 FL Mean Corpuscular Hemoglobin 29.9 PG Mean Corpuscular Hemoglobin Concent 34.2 % Red Cell Distribution Width 16.1 % Platelet Count 270 TH/MM3 Mean Platelet Volume 8.5 FL Neutrophils (%) (Auto) 75.8 % Lymphocytes (%) (Auto) 11.2 % Monocytes (%) (Auto) 12.2 % Eosinophils (%) (Auto) 0.1 % Basophils (%) (Auto) 0.7 % Neutrophils # (Auto) 9.7 TH/MM3 Lymphocytes # (Auto) 1.4 TH/MM3 Monocytes # (Auto) 1.6 TH/MM3 Eosinophils # (Auto) 0.0 TH/MM3 Basophils # (Auto) 0.1 TH/MM3 CBC Comment AUTO DIFF Differential Total Cells Counted 100 Neutrophils % (Manual) 79 % Band Neutrophils % 1 % Lymphocytes % 7 % Monocytes % 10 % Neutrophils # (Manual) 10.6 TH/MM3 Metamyelocytes 2 % Myelocytes 1 % Differential Comment FINAL DIFF MANUAL Platelet Estimate NORMAL Platelet Morphology Comment NORMAL Red Cell Morphology Comment NORMAL Prothrombin Time 10.3 SEC Prothromb Time International Ratio 1.0 RATIO Activated Partial Thromboplast Time 25.0 SEC Blood Urea Nitrogen 21 MG/DL Creatinine 1.60 MG/DL Random Glucose 145 MG/DL Total Protein 7.4 GM/DL Albumin 3.7 GM/DL Calcium Level 9.5 MG/DL Alkaline Phosphatase 94 U/L Aspartate Amino Transf (AST/SGOT) 23 U/L Alanine Aminotransferase (ALT/SGPT) 32 U/L Total Bilirubin 0.9 MG/DL Sodium Level 138 MEQ/L Potassium Level 3.5 MEQ/L Chloride Level 100 MEQ/L Carbon Dioxide Level 28.7 MEQ/L Anion Gap 9 MEQ/L Estimat Glomerular Filtration Rate 42 ML/MIN Troponin I 0.02 NG/ML Thyroid Stimulating Hormone 3rd Gen 1.700 uIU/ML Urine Color YELLOW Urine Turbidity HAZY Urine pH 5.5 Urine Specific [place] 1.025 Urine Protein 30 mg/dL Urine Glucose (UA) NEG mg/dL Urine Ketones NEG mg/dL Urine Occult Blood NEG Urine Nitrite NEG Urine Bilirubin NEG Urine Urobilinogen LESS THAN 2.0 MG/DL Urine Leukocyte Esterase NEG Urine WBC 3 /hpf Urine Squamous Epithelial Cells 2 /hpf Urine Mucus MANY /lpf Microscopic Urinalysis Comment CATH-CULT NOT IND MDM Supervised Visit with HOENY: No Diagnosis Primary Impression: TIA (transient ischemic attack) Qualified Codes: G45.9 - Transient cerebral ischemic attack, unspecified Admitting Information Admitting Physician Requests: Nona Nunez DO Apr 24, 2017 20:23
[2017-04-24] MEDS ORDERED: BUDESONIDE FORMOTEROL INH PRN (21:15)
[2017-04-24] MEDS ORDERED: GLUCAGON 1 MG/ML VIAL OTHER PRN (21:15)
[2017-04-24] MEDS ORDERED: DEXTROSE 50% IN WATER 50 ML VIAL(D50) IV PUSH PRN (21:15)
[2017-04-24] MEDS ORDERED: GADOBENATE DIM PF 529 MG/ML 20ML VIAL (for RAD MRI) IV ONE (21:48)
[2017-04-24] MEDS: SODIUM CHLOR 0.9% 1000 ML INJ 1,000 ML IV SCH (22:11)
[2017-04-24] MEDS: HEPARIN SODIUM - SQ 10,000 UNITS/ML VIAL SQ SCH (22:12)
--- NOTE | 2017-04-24 22:27 | RADRPT ---
EXAM DATE/TIME: 04/24/2017 21:09 [facility] COMPARISON: CT BRAIN W/O CONTRAST, April 24, 2017, 18:29. INDICATIONS : TIA. Right sided weakness MEDICAL HISTORY : Chronic obstructive pulmonary disease. Diabetes mellitus type 2. Dementia. Hypertension. SURGICAL HISTORY : Tonsillectomy. Inguinal hernia repair. Fusion, lumbar. ENCOUNTER: Initial ACUITY: 1 day PAIN SCORE: 0/10 LOCATION: cranial TECHNIQUE: Multiplanar, multisequence MRI of the brain was performed without contrast. FINDINGS: CEREBRUM: Chronic white matter ischemic changes in the periventricular regions and lacunar infarcts in the basa l ganglia. No evidence of mass effect or midline shift. No intracranial hemorrhage. Mild asymmetry of the anterior horn the left lateral ventricle likely developmental. WHITE MATTER: No significant signal abnormalities are seen in the white matter. POSTERIOR FOSSA: The cerebellum and brainstem are intact. The 4th ventricle is midline. The cerebellopontine angle is unremarkable. The cerebellar tonsils are normal in position. DIFFUSION IMAGING: No focal areas of restricted diffusion are seen. No evidence of acute infarction. EXTRACRANIAL: The visualized portions of the orbits and paranasal sinuses are unremarkable. CONCLUSION: Chronic ischemic findings. No acute intracranial findings. Abiel Blanchard MD on April 24, 2017 at 22:23 Board Certified Radiologist. This report was verified electronically.
--- NOTE | 2017-04-24 22:29 | RADRPT ---
EXAM DATE/TIME: 04/24/2017 21:09 [facility] COMPARISON: No previous studies available for comparison. INDICATIONS : TIA. Right sided weakness MEDICAL HISTORY : Chronic obstructive pulmonary disease. Dementia. Diabetes mellitus type 2. Hypertension. SURGICAL HISTORY : Inguinal hernia repair. Fusion, lumbar. Tonsillectomy. ENCOUNTER: Initial ACUITY: 1 day PAIN SCORE: 0/10 LOCATION: cranial Please note a normal MRA of the brain does not entirely exclude the possibility of a small aneurysm, nor the possibility of distal intracranial vessel disease. TECHNIQUE: 3D time of flight MRA was performed. Source images, multiplanar STS MIP, and 3D volume MIP reconstru ctions were reviewed. FINDINGS: Absence of the A1 segment of the anterior cerebral artery on the right. Anterior communicating artery is patent. Anterior cerebral arteries, middle screw arteries, and glove operator through arteries are otherw ise widely patent. No evidence of high-grade stenosis or aneurysm. CONCLUSION: Absence of A1 segment of KULDIP on the right likely a normal variant. No evidence of high-grade stenosis or aneurysm. Abiel Blanchard MD on April 24, 2017 at 22:26 Board Certified Radiologist. This report was verified electronically.
--- NOTE | 2017-04-24 22:30 | RADRPT ---
EXAM DATE/TIME: 04/24/2017 21:09 [facility] COMPARISON: No previous studies available for comparison. INDICATIONS : TIA. Right sided weakness. CONTRAST: 20 cc Multihance (gadobenate) IV MEDICAL HISTORY : Chronic obstructive pulmonary disease. Dementia. Diabetes mellitus type 2. Hypertension. SURGICAL HISTORY : Fusion, lumbar. Tonsillectomy. Inguinal hernia repair. ENCOUNTER: Initial ACUITY: 1 day PAIN SCORE: 0/10 LOCATION: cranial Percent stenosis is calculated using the diameter of the stenotic region over the diameter of the nor mal distal internal carotid artery. TECHNIQUE: Bolus infused MRA of the extracranial circulation was performed using a neurovascular coil. Post pro cessing was performed including rotating subvolume maximum intensity projections of each carotid sada ry, rotating full volume maximum intensity projections of both carotid arteries, sagittal and coronal sliding thin slab reformations of each carotid artery, and left oblique sliding thin slab reformatio n through the aortic arch to include the origin of the arch branch vessels. FINDINGS: AORTIC ARCH: There is a three vessel origin of the great vessels from the aorta. No evidence of ostial narrowing. RIGHT CAROTID: The common carotid artery is intact. The carotid bulb has a normal configuration without ulceration or narrowing. The internal carotid artery lumen is smooth without stenosis. The external carotid ar roel is intact. LEFT CAROTID: The common carotid artery is intact. The carotid bulb has a normal configuration without ulceration or narrowing. The internal carotid artery lumen is smooth without stenosis. The external carotid ar roel is intact. VERTEBRALS: The vertebral arteries have a symmetric diameter. No stenotic lesions are seen. CONCLUSION: No evidence of significant carotid stenosis. Abiel Blanchard MD on April 24, 2017 at 22:28 Board Certified Radiologist. This report was verified electronically.
[2017-04-24 22:38] VITALS: PULSE 82
[2017-04-24 23:04] VITALS: BP 135/67; PULSE 79; RESP 18; TEMP 98.4; O2SAT 94
[2017-04-25] VITALS (7 sets, daily range): BP systolic 135–161; BP diastolic 69–71; PULSE 68–89; RESP 18–20; TEMP 97–99.4; O2SAT 92–97
[2017-04-25] MEDS ORDERED: RESP: ALBUTEROL 2.5 MG/IPRATROPIUM 0.5 MG NEB (PRN) NEB (02:15)
--- NOTE | 2017-04-25 02:43 | HHI.HP ---
[facility] Tanya Medina Do, MD Admission Diagnosis TIA Diagnoses: Travel History International Travel<30 Days: No Contact w/Intl Traveler <30 Da: No Traveled to Known Affected Are: No History of Present Illness 76-year-old male with a past medical history significant for COPD on 4 L nasal cannula at home, hypertension, hyperlipidemia, diabetes mellitus, Alzheimer's dementia, BPH and hypothyroidism presents to the emergency department for evaluation of right-sided weakness. According to the family the patient awoke yesterday morning and had difficulty with ambulation and right-sided weakness. During our interview, the patient cannot tell me why he has come to the emergency room. He is oriented only to self. Per ED notes, the patient has returned to baseline. Head CT with no acute intracranial findings, positive for chronic ischemic changes. Creatinine elevated at 1.60, baseline 0.91. Review of Systems Denies fever or chills Denies blurry vision, otorrhea, rhinorrhea Denies sore throat and cough No chest pain, palpitations, shortness of breath No abdominal pain Denies constipation/diarrhea/nausea/vomiting Denies muscle pain/weakness No rashes Past Family Social History Past Medical History Alzheimer's dementia BPH Hypothyroidism COPD on 4 L nasal cannula at home Hypertension Hyperlipidemia Diabetes mellitus Past Surgical History Spinal fusion, patient unaware which level Reported Medications Reported Meds & Active Scripts Active Reported Anti-Diarrheal (Loperamide HCl) 2 Mg Tab 2 Mg PO BID Symbicort Inh (Budesonide/Formoterol Fumarate) Unknown Strength Aero 1 Puff INH Q12HR PRN Vitamin D3 (Cholecalciferol (Vitamin D3)) 2,000 Unit Tab.chew 2,000 Units PO BID Prednisone 5 Mg Tab 5 Mg PO BID Aricept (Donepezil HCl) 10 Mg Tablet 10 Mg PO HS Lipitor (Atorvastatin Calcium) 20 Mg Tab 20 Mg PO DAILY Omeprazole 20 Mg Tab 20 Mg PO DAILY Celexa (Citalopram Hydrobromide) 20 Mg Tab 30 Mg PO DAILY Amlodipine (Amlodipine Besylate) 10 Mg Tab 10 Mg PO DAILY Lisinopril 40 Mg Tab 40 Mg PO DAILY Risperdal (Risperidone) 0.25 Mg Tab 0.25 Mg PO BID Tamsulosin (Tamsulosin HCl) 0.4 Mg Cap 0.4 Mg PO DAILY Take once a day 30 minutes after the same meal each day Namenda (Memantine) 10 Mg Tab 10 Mg PO BID Hydralazine HCl 10 Mg Tablet 10 Mg PO TID Hydrochlorothiazide 25 Mg Tab 25 Mg PO DAILY Claritin (Loratadine) 10 Mg Tablet 10 Mg PO BID Advair Diskus Inh (Fluticasone-Salmeterol Inh) 500-50 Mcg/Blist Aer 1 Puff INH BID Rinse mouth after use. Ventolin Hfa 18 GM Inh (Albuterol Sulfate) 90 Mcg/Act Aer 2 Puff INH Q4H PRN Levothyroxine (Levothyroxine Sodium) 112 Mcg Tab 112 Mcg PO DAILY Metformin (Metformin HCl) 500 Mg Tab 500 Mg PO DAILY With a meal Allergies: Coded Allergies: Penicillins (Verified Allergy, Unknown, 04/24/17) cephalexin (Verified Allergy, Unknown, 04/24/17) codeine (Unverified Allergy, Unknown, 04/24/17) Uncoded Allergies: DIFFICULT AIRWAY (Adverse Reaction, Severe, 01/20/17) Family History Unknown Social History Denies alcohol, tobacco and illicit drugs Physical Exam Vital Signs Vital Signs Date Time Temp Pulse Resp B/P (MAP) Pulse Ox O2 Delivery O2 Flow Rate FiO2 04/24/17 23:04 98.4 79 18 135/67 (89) 94 04/24/17 22:31 04/24/17 19:06 59 19 157/83 (107) 98 Nasal Cannula 2.00 04/24/17 18:36 78 18 98 Room Air 04/24/17 18:05 18 95 Nasal Cannula 3.00 04/24/17 17:25 97.5 108 22 121/59 (79) 91 Physical Exam GENERAL: male lying in bed SKIN: No rashes, ecchymoses or lesions. Cool and dry. HEAD: Atraumatic. Normocephalic. No temporal or scalp tenderness. EYES: Pupils equal round and reactive. Extraocular motions intact. No scleral icterus. No injection or drainage. ENT: Nose without bleeding, purulent drainage or septal hematoma. Throat without erythema, tonsillar hypertrophy or exudate. Uvula midline. Airway patent. NECK: Trachea midline. No JVD or lymphadenopathy. Supple, nontender, no meningeal signs. CARDIOVASCULAR: Regular rate and rhythm without murmurs, gallops, or rubs. RESPIRATORY: Bilateral wheezing GASTROINTESTINAL: Abdomen soft, non-tender, nondistended. No hepato-splenomegaly , or palpable masses. No guarding. MUSCULOSKELETAL: Extremities without clubbing, cyanosis, or edema. No joint tenderness, effusion, or edema noted. No calf tenderness. NEUROLOGICAL: Awake and alert. Cranial nerves II through XII intact. Five out of 5 muscle strength in all muscle groups. Normal speech. Alert and oriented to self only. Laboratory Laboratory Tests Test 04/24/17 18:05 04/24/17 18:22 White Blood Count 12.8 Red Blood Count 5.17 Hemoglobin 15.5 Hematocrit 45.2 Mean Corpuscular Volume 87.4 Mean Corpuscular Hemoglobin 29.9 Mean Corpuscular Hemoglobin Concent 34.2 Red Cell Distribution Width 16.1 Platelet Count 270 Mean Platelet Volume 8.5 Neutrophils (%) (Auto) 75.8 Lymphocytes (%) (Auto) 11.2 Monocytes (%) (Auto) 12.2 Eosinophils (%) (Auto) 0.1 Basophils (%) (Auto) 0.7 Neutrophils # (Auto) 9.7 Lymphocytes # (Auto) 1.4 Monocytes # (Auto) 1.6 Eosinophils # (Auto) 0.0 Basophils # (Auto) 0.1 CBC Comment AUTO DIFF Differential Total Cells Counted 100 Neutrophils % (Manual) 79 Band Neutrophils % 1 Lymphocytes % 7 Monocytes % 10 Neutrophils # (Manual) 10.6 Metamyelocytes 2 Myelocytes 1 Differential Comment FINAL DIFF MANUAL Platelet Estimate NORMAL Platelet Morphology Comment NORMAL Red Cell Morphology Comment NORMAL Prothrombin Time 10.3 Prothromb Time International Ratio 1.0 Activated Partial Thromboplast Time 25.0 Blood Urea Nitrogen 21 Creatinine 1.60 Random Glucose 145 Total Protein 7.4 Albumin 3.7 Calcium Level 9.5 Alkaline Phosphatase 94 Aspartate Amino Transf (AST/SGOT) 23 Alanine Aminotransferase (ALT/SGPT) 32 Total Bilirubin 0.9 Sodium Level 138 Potassium Level 3.5 Chloride Level 100 Carbon Dioxide Level 28.7 Anion Gap 9 Estimat Glomerular Filtration Rate 42 Troponin I 0.02 Thyroid Stimulating Hormone 3rd Gen 1.700 Urine Color YELLOW Urine Turbidity HAZY Urine pH 5.5 Urine Specific [place] 1.025 Urine Protein 30 Urine Glucose (UA) NEG Urine Ketones NEG Urine Occult Blood NEG Urine Nitrite NEG Urine Bilirubin NEG Urine Urobilinogen LESS THAN 2.0 Urine Leukocyte Esterase NEG Urine WBC 3 Urine Squamous Epithelial Cells 2 Urine Mucus MANY Microscopic Urinalysis Comment CATH-CULT NOT IND Result Diagram: 04/24/17180404/24/171804 Caprini VTE Risk Assessment Caprini VTE Risk Assessment: Mod/High Risk (score >= 2) Caprini Risk Assessment Model Point Value = 1 Point Value = 2 Point Value = 3 Point Value = 5 Age 41-60 Minor surgery BMI > 25 kg/m2 Swollen legs Varicose veins or History of unexplained or recurrent spontaneous Oral contraceptives or hormone replacement Sepsis (< 1 month) Serious lung disease, including pneumonia (< 1 month) Abnormal pulmonary function Acute myocardial infarction Congestive heart failure (< 1 month) History of inflammatory bowel disease Medical patient at bed rest Age 61-74 Arthroscopic surgery Major open surgery (> 45 min) Laparoscopic surgery (> 45 min) Malignancy Confined to bed (> 72 hours) Immobilizing plaster cast Central venous access Age >= 75 History of VTE Family history of VTE Factor V Leiden Prothrombin [id number] Lupus anticoagulant Anticardiolipin antibodies Elevated serum homocysteine Heparin-induced thrombocytopenia Other congenital or acquired thrombophilia Stroke (< 1 month) Elective arthroplasty Hip, pelvis, or leg fracture Acute spinal cord injury (< 1 month) Prophylaxis Regimen Total Risk Factor Score Risk Level Prophylaxis Regimen 0-1 Low Early ambulation 2 Moderate Order ONE of the following: *Sequential Compression Device (SCD) *Heparin 5000 units SQ BID 3-4 Higher Order ONE of the following medications: *Heparin 5000 units SQ TID *Enoxaparin/Lovenox 40 mg SQ daily (WT < 150 kg, CrCl > 30 mL/min) *Enoxaparin/Lovenox 30 mg SQ daily (WT < 150 kg, CrCl > 10-29 mL/min) *Enoxaparin/Lovenox 30 mg SQ BID (WT < 150 kg, CrCl > 30 mL/min) AND/OR *Sequential Compression Device (SCD) 5 or more Highest Order ONE of the following medications: *Heparin 5000 units SQ TID (Preferred with Epidurals) *Enoxaparin/Lovenox 40 mg SQ daily (WT < 150 kg, CrCl > 30 mL/min) *Enoxaparin/Lovenox 30 mg SQ daily (WT < 150 kg, CrCl > 10-29 mL/min) *Enoxaparin/Lovenox 30 mg SQ BID (WT < 150 kg, CrCl > 30 mL/min) AND *Sequential Compression Device (SCD) Assessment and Plan Assessment and Plan Assessment/plan: 1. TIA Patient takes aspirin daily CT head with no acute intracranial findings, chronic ischemic changes noted Brain MRI with chronic ischemic findings in no acute intercranial process Head and neck MRA without evidence of high-grade stenosis ranges of Echo pending Neurology consulted, appreciate recommendations 2. LEFTY Cr 1.60, baseline from 01/2017 0.91 IVF hydration Monitor renal function Avoid nephrotoxic agents 3. COPD Patient wheezing on exam Duo nebs Supplemental oxygen CXR pending 4. Diabetes mellitus SSI Monitor blood glucose 5. Hypertension/hyperlipidemia/dementia/BPH/hypothyroidism TSH within normal limits Continue home medications FEN NPO NS at 125 cc/hr Electrolytes: Monitor and replete when necessary Heparin Case discussed with ER physician at length Margo Garcia MD Apr 25, 2017 02:43
[2017-04-25] MEDS: BUDESONIDE-FORMOTEROL 160/4.5 MCG INHALER INH SCH ×2 (04:06→08:44)
--- NOTE | 2017-04-25 04:31 | RADRPT ---
EXAM DATE/TIME: 04/25/2017 02:44 [facility] COMPARISON: CHEST SINGLE AP, January 22, 2017, 9:38. INDICATIONS : Short of breath. MEDICAL HISTORY : Chronic obstructive pulmonary disease. Dementia. Diabetes mellitus type 2. Hypertension. SURGICAL HISTORY : Inguinal hernia repair. Fusion, lumbar. Tonsillectomy. ENCOUNTER: Initial ACUITY: 1 day PAIN SCORE: 0/10 LOCATION: Bilateral chest FINDINGS: A single view of the chest demonstrates the lungs to be symmetrically aerated without evidence of mas s, infiltrate or effusion. The cardiomediastinal contours are unremarkable. Osseous structures are intact. CONCLUSION: No acute disease. Ariel Alvarado MD on April 25, 2017 at 4:29 Board Certified Radiologist. This report was verified electronically.
[2017-04-25 05:46] LABS: BASOPHIL # 0.1 TH/MM3 (0-0.2); BASOPHIL % 0.5 % (0.0-2.0); EOSINOPHIL % 0.4 % (0.0-4.0); HEMOGLOBIN 14.1 GM/DL (13.0-17.0); LYMPH % 29.3 % (9.0-44.0); LYMPHOCYTE # 2.8 TH/MM3 (1.0-4.8); MEAN CELL VOLUME 87.8 FL (80.0-100.0); MEAN CORPUSCULAR HEMOGLOBIN 29.5 PG (27.0-34.0); MEAN CORPUSCULAR HGB CONC 33.6 % (32.0-36.0); MEAN PLATELET VOLUME 7.9 FL (7.0-11.0); MONO % 17.2 % (0.0-8.0); MONOCYTE # 1.6 TH/MM3 (0-0.9); NEUT % 52.6 % (16.0-70.0); PLATELET COUNT 195 TH/MM3 (150-450); RED BLOOD COUNT 4.79 MIL/MM3 (4.50-5.90); WHITE BLOOD COUNT 9.5 TH/MM3 (4.0-11.0)
[2017-04-25 05:54] LABS: BICARBONATE 27.8 MEQ/L (21.0-32.0); BLOOD UREA NITROGEN 21 MG/DL (7-18); CALCIUM 8.4 MG/DL (8.5-10.1); CHLORIDE 102 MEQ/L (98-107); CHOLESTEROL 128 MG/DL (120-200); CREATININE 1.05 MG/DL (0.60-1.30); GLOMERULAR FILTRATION RATE 69 ML/MIN (>89); GLUCOSE,RANDOM 99 MG/DL (74-106); HDL CHOLESTEROL 49.1 MG/DL (40.0-60.0); LDL CHOLESTEROL 52 MG/DL (0-99); SODIUM (NA) 139 MEQ/L (136-145); TRIGLYCERIDES 135 MG/DL (42-150)
[2017-04-25] MEDS ORDERED: LEVOTHYROXINE SODIUM 112 MCG TAB PO SCH (06:00)
[2017-04-25 06:27] LABS: BASOPHILS 1 % (0-2); LYMPHOCYTES 17 % (9-44); MONOCYTES 14 % (0-8); MYELOCYTES 2 % (0-0); NEUTROPHIL # MANUAL DIFF 6.5 TH/MM3 (1.8-7.7); POLYS (SEG NEUTROPHILS) 66 % (16-70)
[2017-04-25] MEDS: HEPARIN SODIUM - SQ 10,000 UNITS/ML VIAL SQ SCH (07:48)
[2017-04-25] MEDS: SODIUM CHLOR 0.9% 1000 ML INJ 1,000 ML IV SCH (07:49)
[2017-04-25] MEDS ORDERED: INSULIN ASPART SUPPLEMENTAL SCALE SQ SCH (08:00)
[2017-04-25] MEDS ORDERED: risperiDONE 0.25 MG TAB PO SCH (09:00)
[2017-04-25] MEDS ORDERED: SODIUM CHLORIDE 0.9% FLUSH 10 ML FLUSH IV FLUSH SCH (09:00)
[2017-04-25] MEDS ORDERED: ATORVASTATIN 20 MG TAB PO SCH (09:00)
[2017-04-25] MEDS ORDERED: TAMSULOSIN HCL 0.4 MG CAP PO SCH (09:00)
[2017-04-25] MEDS ORDERED: hydrALAZINE HCL 10 MG TAB PO SCH (09:00)
[2017-04-25] MEDS ORDERED: HYDROCHLOROTHIAZIDE 25 MG TAB PO SCH (09:00)
[2017-04-25] MEDS ORDERED: CITALOPRAM HYDROBROMIDE 20 MG TAB PO SCH (09:00)
[2017-04-25] MEDS ORDERED: LISINOPRIL 20 MG TAB PO SCH (09:00)
[2017-04-25] MEDS ORDERED: MEMANTINE HCL 10 MG TAB PO SCH (09:00)
[2017-04-25] MEDS ORDERED: PANTOPRAZOLE SOD 20 MG DELAYED RELEASE TAB PO SCH (09:00)
--- NOTE | 2017-04-25 10:15 | PD.CONS ---
History of Present Illness Service Neurology Consult Requested By medical Reason for Consult tia Primary Care Physician Tanya Medina Do, MD History of Present Illness 76-year-old male with hx of dementia admitted for transient rt sided weakness. mri negative for acute infarct. mra's nml. not on any bloodthinners/aspirin at home. has dementia and mood d/o. followed in our clinic. pt back to baseline. pt and family want to go home. feel his back to his baseline. denies gibbons/cp/focal weakness. Review of Systems as above and admit hp Past Family Social History Past Medical History Alzheimer's dementia BPH Hypothyroidism COPD on 4 L nasal cannula at home Hypertension Hyperlipidemia Diabetes mellitus Past Surgical History Spinal fusion, patient unaware which level Reported Medications Reported Meds & Active Scripts Active Reported Anti-Diarrheal (Loperamide HCl) 2 Mg Tab 2 Mg PO BID Symbicort Inh (Budesonide/Formoterol Fumarate) Unknown Strength Aero 1 Puff INH Q12HR PRN Vitamin D3 (Cholecalciferol (Vitamin D3)) 2,000 Unit Tab.chew 2,000 Units PO BID Prednisone 5 Mg Tab 5 Mg PO BID Aricept (Donepezil HCl) 10 Mg Tablet 10 Mg PO HS Lipitor (Atorvastatin Calcium) 20 Mg Tab 20 Mg PO DAILY Omeprazole 20 Mg Tab 20 Mg PO DAILY Celexa (Citalopram Hydrobromide) 20 Mg Tab 30 Mg PO DAILY Amlodipine (Amlodipine Besylate) 10 Mg Tab 10 Mg PO DAILY Lisinopril 40 Mg Tab 40 Mg PO DAILY Risperdal (Risperidone) 0.25 Mg Tab 0.25 Mg PO BID Tamsulosin (Tamsulosin HCl) 0.4 Mg Cap 0.4 Mg PO DAILY Take once a day 30 minutes after the same meal each day Namenda (Memantine) 10 Mg Tab 10 Mg PO BID Hydralazine HCl 10 Mg Tablet 10 Mg PO TID Hydrochlorothiazide 25 Mg Tab 25 Mg PO DAILY Claritin (Loratadine) 10 Mg Tablet 10 Mg PO BID Advair Diskus Inh (Fluticasone-Salmeterol Inh) 500-50 Mcg/Blist Aer 1 Puff INH BID Rinse mouth after use. Ventolin Hfa 18 GM Inh (Albuterol Sulfate) 90 Mcg/Act Aer 2 Puff INH Q4H PRN Levothyroxine (Levothyroxine Sodium) 112 Mcg Tab 112 Mcg PO DAILY Metformin (Metformin HCl) 500 Mg Tab 500 Mg PO DAILY With a meal Allergies: Coded Allergies: Penicillins (Verified Allergy, Unknown, 04/24/17) cephalexin (Verified Allergy, Unknown, 04/24/17) codeine (Unverified Allergy, Unknown, 04/24/17) Uncoded Allergies: DIFFICULT AIRWAY (Adverse Reaction, Severe, 01/20/17) Family History Unknown Social History Denies alcohol, tobacco and illicit drugs Review of Systems All other ROS: ROS reviewed as documented in chart Past Family Social History Allergies: Coded Allergies: Penicillins (Verified Allergy, Unknown, 04/24/17) cephalexin (Verified Allergy, Unknown, 04/24/17) codeine (Unverified Allergy, Unknown, 04/24/17) Uncoded Allergies: DIFFICULT AIRWAY (Adverse Reaction, Severe, 01/20/17) Active Ordered Medications Current Medications Medications (Trade) Dose Ordered Sig/Sarah Route Start Time Stop Time Status Last Admin (NS Flush) 2 ml UNSCH PRN IV FLUSH 04/24/17 18:00 (NS Flush) 2 ml BID IV FLUSH 04/25/17 09:00 (NS Flush) 2 ml UNSCH PRN IV FLUSH 04/24/17 21:15 (NovoLOG SUPPLEMENTAL SCALE) 1 ACHS SQ 04/25/17 08:00 (D50w (Vial) Inj) 50 ml UNSCH PRN IV PUSH 04/24/17 21:15 (Glucagon Inj) 1 mg UNSCH PRN OTHER 04/24/17 21:15 (Heparin Inj) 5,000 units Q8HR SQ 04/24/17 22:00 04/25/17 07:48 (Norvasc) 10 mg DAILY PO 04/25/17 09:00 04/25/17 08:43 (Lipitor) 20 mg DAILY PO 04/25/17 09:00 04/25/17 08:46 (CeleXA) 30 mg DAILY PO 04/25/17 09:00 04/25/17 08:42 (Apresoline) 10 mg TID PO 04/25/17 09:00 04/25/17 08:41 (Hydrodiuril) 25 mg DAILY PO 04/25/17 09:00 04/25/17 08:43 (Synthroid) 112 mcg DAILY@0600 PO 04/25/17 06:00 04/25/17 08:42 (Namenda) 10 mg BID PO 04/25/17 09:00 04/25/17 08:43 (risperDAL) 0.25 mg BID PO 04/25/17 09:00 04/25/17 08:41 (Flomax) 0.4 mg DAILY PO 04/25/17 09:00 04/25/17 08:42 (Aricept) 10 mg HS PO 04/25/17 21:00 (Symbicort 160-4.5 Mcg Inh) 2 puff BID INH 04/25/17 02:15 04/25/17 08:44 (Prinivil) 40 mg DAILY PO 04/25/17 09:00 04/25/17 08:41 (Protonix) 20 mg DAILY PO 04/25/17 09:00 04/25/17 08:47 (Duoneb Neb) 1 ampule Q4HR NEB PRN NEB 04/25/17 02:15 04/25/17 04:12 Exam I&O / VS Vital Signs Date Time Temp Pulse Resp B/P (MAP) Pulse Ox O2 Delivery O2 Flow Rate FiO2 04/25/17 08:00 99.4 76 20 135/71 (92) 92 04/25/17 07:00 89 04/25/17 04:05 98.8 68 18 161/70 (100) 95 04/25/17 04:01 82 04/25/17 03:05 97 Nasal Cannula 2.00 04/25/17 00:34 74 04/25/17 00:34 74 04/24/17 23:04 98.4 79 18 135/67 (89) 94 04/24/17 22:38 82 04/24/17 22:38 82 04/24/17 22:31 04/24/17 19:06 59 19 157/83 (107) 98 Nasal Cannula 2.00 04/24/17 18:36 78 18 98 Room Air 04/24/17 18:05 18 95 Nasal Cannula 3.00 04/24/17 17:25 97.5 108 22 121/59 (79) 91 General: Alert and Oriented, No acute distress Respiratory: Non-labored respirations Musculoskeletal: ROM Neurologic: Alert, Oriented, Normal motor, CN II-XII intact, Normal DTR's Psychiatric: Cooperative, Appropriate mood & affect Exam Comments sitting up, obese, follows, ox 3, eomi, face sym, ou 3-2mm, vff, gilmore to gravity , mild ue rigidity and tremors, no clonus, planterflexor Review/Management Diagnosis/Plan: (1) TIA (transient ischemic attack) ICD Codes: G45.9 - Transient cerebral ischemic attack, unspecified Status: Acute Plan: possible tia recs aspirin qd outpatient event monitor to r/o afib f/u echo no driving return to er if any new deficit d/w pt/spouse f/u in our office in 1-2 weeks (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
[2017-04-25 11:41] LABS: HEMOGLOBIN A1C 6.8 % (4.3-6.0)
[2017-04-25] MEDS ORDERED: ASPI-183 PO (12:00)
[2017-04-25] MEDS ORDERED: ASPIRIN EC 325 MG TABEC PO SCH (12:00)
--- NOTE | 2017-04-25 12:00 | HHI.DCPOC ---
Discharge Care Plan Diagnosis: (1) TIA (transient ischemic attack) (2) Dementia (3) Anxiety (4) DM (diabetes mellitus) Goals to Promote Your Health * To prevent worsening of your condition and complications * To maintain your health at the optimal level Directions to Meet Your Goals Take your medications as prescribed Follow your dietary instruction Follow activity as directed Keep your appointments as scheduled Take your immunizations and boosters as scheduled If your symptoms worsen call your PCP, if no PCP go to Urgent Care Center or Emergency Room Smoking is Dangerous to Your Health. Avoid second hand smoke Call the 24-hour hour crisis hotline for domestic abuse at Amanda Rodriguez MD Apr 25, 2017 12:00
--- NOTE | 2017-04-25 12:01 | HHI.PR ---
Subjective Remarks Patient reports he is feeling great. He wants to go back home. States he is back to his baseline. Discussed with his and daughter at bedside. They both reports the patient is back to his baseline. He has been seen by neurology and will be followed outpatient. Objective Vitals Vital Signs Date Time Temp Pulse Resp B/P (MAP) Pulse Ox O2 Delivery O2 Flow Rate FiO2 04/25/17 08:00 99.4 76 20 135/71 (92) 92 04/25/17 07:00 89 04/25/17 04:05 98.8 68 18 161/70 (100) 95 04/25/17 04:01 82 04/25/17 03:05 97 Nasal Cannula 2.00 04/25/17 00:34 74 04/25/17 00:34 74 04/24/17 23:04 98.4 79 18 135/67 (89) 94 04/24/17 22:38 82 04/24/17 22:38 82 04/24/17 22:31 04/24/17 19:06 59 19 157/83 (107) 98 Nasal Cannula 2.00 04/24/17 18:36 78 18 98 Room Air 04/24/17 18:05 18 95 Nasal Cannula 3.00 04/24/17 17:25 97.5 108 22 121/59 (79) 91 Result Diagram: 04/25/17 0507 04/25/17 0507 Objective Remarks GENERAL: Obese male in no apparent distress. CARDIOVASCULAR: Normal rate and regular rhythm without murmurs, gallops, or rubs. RESPIRATORY: Good respiratory efforts. Breath sounds equal and clear to auscultation bilaterally. GASTROINTESTINAL: Abdomen soft, non-tender, non-distended. Normal active bowel sounds MUSCULOSKELETAL: Extremities without cyanosis, or edema. NEURO: Alert & Oriented to place and situation. Moves all ext x4 PSYCH: Appropriate mood and affect. A/P Problem List: (1) TIA (transient ischemic attack) ICD Code: G45.9 - Transient cerebral ischemic attack, unspecified (2) Dementia ICD Code: F03.90 - Unspecified dementia without behavioral disturbance Status: Chronic (3) DM (diabetes mellitus) ICD Code: E11.9 - Type 2 diabetes mellitus without complications Status: Chronic Assessment and Plan 76-year-old male who presented after an episode of right sided weakness, concern for TIA. The patient was admitted for observation. Brain MRI and head MRA were unremarkable. He was evaluated by neurology recommended daily aspirin and follow-up Holter monitor and echocardiogram. The patient was observed and returned to his baseline. He is discharged with Holter monitor. He will follow up outpatient for echocardiogram. Patient also had acute kidney injury. This improved after IV fluid. The patient will continue his home medications for his chronic conditions. Discharge Planning Discharge home in good condition Diet: Heart healthy Activity: Regular as tolerated. Patient advised to use his walker. Meds: Per med rec. He was started on aspirin Follow-up: With Neurology Amanda Rodriguez MD Apr 25, 2017 12:01
[2017-04-25] MEDS ORDERED: DONEPEZIL HCL 5 MG TAB PO SCH (21:00)
--- NOTE | 2017-04-25 22:03 | EKG ---
Date Performed: 04/24/2017 Time Performed: 17:52:53 PTAGE: 76 years EKG: Sinus rhythm POSSIBLE RIGHT VENTRICULAR CONDUCTION DELAY INFERIOR MYOCARDIAL INFARCTION ABNORMAL ECG PREVIOUS TRACING : 01/20/2017 13.32 Compared to prior tracing no significant change DOCTOR: Kenneth Mccarthy Interpretating Date/Time 04/25/2017 22:01:07
== END 2017-04-25 12:26 | disposition home or self-care (01) ==
LOC: NEPC 17:18 → NEDA 20:25 → NEPFCDU 22:17
PROVIDERS: ADMIT Family Medicine; ATTEND Family Medicine
DX: G45.9 Transient cerebral ischemic attack, unspecified (principal); F02.80 Dementia in other diseases classified elsewhere, unspecified severity, without behavioral disturbance, psychotic disturbance, mood disturbance, and anxiety; G30.9 Alzheimer's disease, unspecified; E11.9 Type 2 diabetes mellitus without complications; N17.9 Acute kidney failure, unspecified; E03.9 Hypothyroidism, unspecified; D72.829 Elevated white blood cell count, unspecified; E78.5 Hyperlipidemia, unspecified; F41.9 Anxiety disorder, unspecified; I10 Essential (primary) hypertension; I48.92 Unspecified atrial flutter; F39 Unspecified mood [affective] disorder; J44.9 Chronic obstructive pulmonary disease, unspecified; Z79.84 Long term (current) use of oral hypoglycemic drugs; N40.0 Benign prostatic hyperplasia without lower urinary tract symptoms; Z99.81 Dependence on supplemental oxygen; Z98.1 Arthrodesis status
CPT/HCPCS: 70450; 70544; 70548; 70551; 71010; 80048; 80053; 80061; 81001; 82948; 83036; 84443; 84484; 85007; 85027; 85610; 85730; 93005; 94664; 96360; 96361; 96372; 99285; A9577; G0378; J1644; J7030

== ENCOUNTER 2017-09-07 12:05 | Inpatient (IN) | payer OTHER, MEDICARE ==
[~2017-09-07] VITALS: Ht 167.6 cm; Wt 98.3 kg
[2017-09-07] VITALS (7 sets, daily range): BP systolic 121–134; BP diastolic 58–64; PULSE 82–97; RESP 18; TEMP 98.7–99.3; O2SAT 92–95
[~2017-09-07 12:05] MED LIST changes: -ALBU0.08 NEB; +ANTI2TAB10 PO; +ARIC10TA9 PO; -ARIC5TAB6 PO; +ASPI-183 PO; -BENZ100 PO; +CHOL1CHW5 PO; -IPRA0.02 NEB; -LEVA500T33 PO; -PRED10 PO; +PRED5TAB PO; +SYMB80AE INH
[2017-09-07] MEDS ORDERED: methylPREDNISolone SOD SUCC 125 MG/2 ML VIAL IV PUSH ONE (12:45)
[2017-09-07] MEDS ORDERED: SODIUM CHLORIDE 0.9% FLUSH 10 ML FLUSH IVF PRN (12:45)
--- NOTE | 2017-09-07 12:50 | PD ---
HPI Chief Complaint: General Weakness Time Seen by Provider: 12:25 Travel History International Travel<30 days: No Contact w/Intl Traveler<30days: No History of Present Illness HPI 76-year-old male presents to the emergency department via EMS. Patient is a poor historian. Patient has history of COPD on 4 L nasal cannula at home, hypertension, hyperlipidemia, diabetes mellitus, Alzheimer's dementia, BPH and hypothyroidism. Once patient's sister and arrives, I was able to obtain more information. According to them, he has been very weak since waking up this morning. He fell trying to get up to a chair which is unusual for him. states he was also more disoriented and cannot figure out how to do simple things which is unusual for him. She states that he appeared to have weakness in his bilateral lower extremities. They state that he follow-up due to the weakness. Patient does report having a headache for "a while". He denies chest pain, but does report shortness of breath. He denies abdominal pain. No nausea, vomiting, diarrhea. No exacerbating or alleviating factors. Moderate severity. Family also states that he has not been drinking or eating. When EMS arrived, patient was hypotensive with systolic blood pressure in the 80s. He had 1 L IV fluid prior to arrival. PFSH Past Medical History Asthma: Yes Anxiety: Yes Depression: Yes Cancer: No Cardiovascular Problems: Yes High Cholesterol: Yes Chemotherapy: No Chest Pain: Yes COPD: Yes (02 dependent and cpap machine ) Cerebrovascular Accident: No Dementia: Yes Diabetes: Yes Endocrine: No Gastrointestinal Disorders: No Genitourinary: No Headaches: No Hepatitis: No Hiatal Hernia: Yes Hypertension: Yes Immune Disorder: No Implanted Vascular Access Dvce: No Musculoskeletal: Yes (ARTHRITIS) Neurologic: Yes (DEMENTIA) Psychiatric: No Reproductive: No Respiratory: Yes Migraines: No Radiation Therapy: No Seizures: No Thyroid Disease: Yes (HYPO) Past Surgical History Abdominal Surgery: Yes (UMB. HERNIA REPAIR) AICD: No Eye Surgery: Yes (BILAT. CARARCT SX) Joint Replacement: No Oral Surgery: Yes (TONSILS) Pacemaker: No Tonsillectomy: Yes Other Surgery: Yes Social History Alcohol Use: Yes (OCC) Tobacco Use: No Substance Use: No Allergies-Medications (Allergen,Severity, Reaction): Coded Allergies: Penicillins (Verified Allergy, Unknown, 04/24/17) cephalexin (Verified Allergy, Unknown, 04/24/17) codeine (Unverified Allergy, Unknown, 04/24/17) Uncoded Allergies: DIFFICULT AIRWAY (Adverse Reaction, Severe, 01/20/17) Reported Meds & Prescriptions Reported Meds & Active Scripts Active Aspirin 325 Mg Tab 325 Mg PO DAILY Reported Ipratropium Neb (Ipratropium [place]) 0.5 Mg/2.5 Ml Amp 0.5 Mg NEB BID Tessalon Perles (Benzonatate) 100 Mg Cap 100 Mg PO TID PRN Cardizem CD 24 HR (Diltiazem CD 24 HR) 240 Mg Caper 240 Mg PO DAILY Levetiracetam 500 Mg Tab 500 Mg PO BID Ativan (Lorazepam) 0.5 Mg Tab 0.5 Mg PO BID PRN Aricept (Donepezil HCl) 5 Mg Tablet 5 Mg PO HS Anti-Diarrheal (Loperamide HCl) 2 Mg Tab 2 Mg PO PRN Prednisone 5 Mg Tab 5 Mg PO BID Lipitor (Atorvastatin Calcium) 20 Mg Tab 20 Mg PO DAILY Omeprazole 20 Mg Tab 20 Mg PO DAILY Celexa (Citalopram Hydrobromide) 20 Mg Tab 20 Mg PO DAILY Lisinopril 40 Mg Tab 40 Mg PO DAILY Risperdal (Risperidone) 0.25 Mg Tab 0.25 Mg PO BID Tamsulosin (Tamsulosin HCl) 0.4 Mg Cap 0.4 Mg PO DAILY Take once a day 30 minutes after the same meal each day Namenda (Memantine) 10 Mg Tab 10 Mg PO BID Hydralazine HCl 10 Mg Tablet 10 Mg PO TID Hydrochlorothiazide 25 Mg Tab 25 Mg PO DAILY Claritin (Loratadine) 10 Mg Tablet 10 Mg PO DAILY Advair Diskus Inh (Fluticasone-Salmeterol Inh) 500-50 Mcg/Blist Aer 1 Puff INH BID Rinse mouth after use. Ventolin Hfa 18 GM Inh (Albuterol Sulfate) 90 Mcg/Act Aer 2 Puff INH Q4H PRN Levothyroxine (Levothyroxine Sodium) 112 Mcg Tab 112 Mcg PO DAILY Metformin (Metformin HCl) 500 Mg Tab 500 Mg PO DAILY With a meal Review of Systems Except as stated in HPI: all other systems reviewed are Neg Physical Exam Narrative GENERAL: Well-nourished, well-developed elderly male patient, afebrile. Patient is alert and oriented to person and place. He knows the year, but does not know the month. SKIN: Focused skin assessment warm/dry. HEAD: Normocephalic. Atraumatic. EYES: No scleral icterus. No injection or drainage. ENT: Mucosa pink and moist. No erythema or exudates. No uvular edema. No uvular , palatal, or tonsillar deviation. Airway patent. Nasal turbinates appear normal without nasal blood, purulent drainage or septal hematoma. Bilateral tympanic membranes clear without erythema or perforation. NECK: Supple, trachea midline. No JVD or lymphadenopathy. CARDIOVASCULAR: Regular rate and rhythm without murmurs, gallops, or rubs. RESPIRATORY: Breath sounds equal bilaterally. No accessory muscle use. Lung sounds diminished throughout with slight expiratory wheezes noted throughout. GASTROINTESTINAL: Abdomen soft, non-tender, nondistended. MUSCULOSKELETAL: No cyanosis, or edema. Bilateral upper and lower extremity strength 5/5. All extremities are neurovascularly intact BACK: Nontender without obvious deformity. No CVA tenderness. Data Data Last Documented VS Vital Signs Date Time Temp Pulse Resp B/P (MAP) Pulse Ox O2 Delivery O2 Flow Rate FiO2 09/07/17 14:28 97 18 121/58 (79) 92 Nasal Cannula 4.00 09/07/17 12:41 99.3 Orders Orders Electrocardiogram (09/07/17 12:33) Complete Blood Count With Diff (09/07/17 12:33) Comprehensive Metabolic Panel (09/07/17 12:33) Magnesium (Mg) (09/07/17 12:33) B-Type Natriuretic Peptide (09/07/17 12:33) Ckmb (Isoenzyme) Profile (09/07/17 12:33) Troponin I (09/07/17 12:33) Act Partial Throm Time (Ptt) (09/07/17 12:33) Prothrombin Time / Inr (Pt) (09/07/17 12:33) Urinalysis - C+S If Indicated (09/07/17 12:33) Ecg Monitoring (09/07/17 12:33) Iv Access Insert/Monitor (09/07/17 12:33) Oximetry (09/07/17 12:33) Sodium Chloride 0.9% Flush (Ns Flush) (09/07/17 12:45) Orthostatic Vital Signs (09/07/17 12:33) Chest, Single Ap (09/07/17 12:33) Methylprednisolone So Succ Inj (Solumedr (09/07/17 12:45) Albuterol-Ipratropium Neb (Duoneb Neb) (09/07/17 12:45) Ct Brain W/O Iv Contrast(Rout) (09/07/17 ) Lactic Acid Sepsis Protocol (09/07/17 13:36) Blood Culture (09/07/17 13:36) Aztreonam Inj (Azactam Inj) (09/07/17 13:45) Azithromycin Inj (Zithromax Inj) (09/07/17 13:45) Admit Order (Ed Use Only) (09/07/17 14:51) Labs Laboratory Tests Test 09/07/17 13:02 09/07/17 13:07 09/07/17 14:11 09/07/17 14:12 B-Type Natriuretic Peptide 48 PG/ML White Blood Count 20.9 TH/MM3 Red Blood Count 4.91 MIL/MM3 Hemoglobin 13.9 GM/DL Hematocrit 42.1 % Mean Corpuscular Volume 85.7 FL Mean Corpuscular Hemoglobin 28.3 PG Mean Corpuscular Hemoglobin Concent 33.0 % Red Cell Distribution Width 15.3 % Platelet Count 252 TH/MM3 Mean Platelet Volume 8.5 FL Neutrophils (%) (Auto) 87.8 % Lymphocytes (%) (Auto) 5.2 % Monocytes (%) (Auto) 6.7 % Eosinophils (%) (Auto) 0.0 % Basophils (%) (Auto) 0.3 % Neutrophils # (Auto) 18.4 TH/MM3 Lymphocytes # (Auto) 1.1 TH/MM3 Monocytes # (Auto) 1.4 TH/MM3 Eosinophils # (Auto) 0.0 TH/MM3 Basophils # (Auto) 0.1 TH/MM3 CBC Comment DIFF FINAL Differential Comment Urine Color YELLOW Urine Turbidity CLEAR Urine pH 8.0 Urine Specific [place] 1.026 Urine Protein 30 mg/dL Urine Glucose (UA) NEG mg/dL Urine Ketones NEG mg/dL Urine Occult Blood NEG Urine Nitrite NEG Urine Bilirubin NEG Urine Urobilinogen LESS THAN 2.0 MG/DL Urine Leukocyte Esterase NEG Urine RBC 2 /hpf Urine WBC 2 /hpf Urine Bacteria RARE /hpf Urine Hyaline Casts 3 /lpf Urine Mucus MANY /lpf Microscopic Urinalysis Comment CULT NOT INDICATED Blood Urea Nitrogen 27 MG/DL Creatinine 1.42 MG/DL Random Glucose 124 MG/DL Total Protein 5.9 GM/DL Albumin 2.7 GM/DL Calcium Level 8.3 MG/DL Magnesium Level 2.2 MG/DL Alkaline Phosphatase 73 U/L Aspartate Amino Transf (AST/SGOT) 18 U/L Alanine Aminotransferase (ALT/SGPT) 24 U/L Total Bilirubin 1.0 MG/DL Sodium Level 141 MEQ/L Potassium Level 3.9 MEQ/L Chloride Level 106 MEQ/L Carbon Dioxide Level 24.9 MEQ/L Anion Gap 10 MEQ/L Estimat Glomerular Filtration Rate 48 ML/MIN Total Creatine Kinase 88 U/L Troponin I LESS THAN 0.02 NG/ML Prothrombin Time 10.6 SEC Prothromb Time International Ratio 1.0 RATIO Activated Partial Thromboplast Time 23.1 SEC Lactic Acid Level 2.6 mmol/L MDM Medical Decision Making Medical Screen Exam Complete: Yes Emergency Medical Condition: Yes Medical Record Reviewed: Yes Interpretation(s) chest x-ray - CONCLUSION: Developing left basilar airspace disease/infiltrate. CT brain - CONCLUSION: 1. Small lacunar infarcts in the basal ganglia bilaterally. No acute intracranial abnormalities. Differential Diagnosis Electrolyte abnormality versus ACS versus intracranial abnormality versus dehydration versus UTI versus COPD exacerbation versus pneumonia Narrative Course 76-year-old male presents to the emergency department for evaluation of being disoriented, generalized weakness, fall with hypotension when EMS arrived. EKG , CBC, CMP, magnesium, BMP, CK, troponin, PTT, PT/INR, UA are ordered and pending. CT of the brain and chest x-ray are ordered and pending. Patient is given DuoNeb 3 and Solu-Medrol 125 mg IV. Orthostatic vital signs are ordered and pending. EKG shows sinus rhythm, heart rate 88. CBC shows leukocytosis of 20.9. BMP shows BUN 27, creatinine 1.42. Magnesium is 2.2. BNP is pending. CK is 88. Troponin is less than 0.02. Coags are pending. UA is negative for acute infection. Chest x-ray shows developing left basilar airspace disease/ infiltrate. CT of the brain shows Small lacunar infarcts in the basal ganglia bilaterally. No acute intracranial abnormalities. Lactic acid and blood cultures 2 were ordered and pending. Patient is allergic to penicillin and Keflex, therefore he is given Azactam 2 g IV and azithromycin 500 mg IV. [facility] is paged for admission. Dr. Chopra accepted admission. Sepsis Criteria SIRS Criteria (2 or more): WBC > 89579, < 4000 or > 10% bands Diagnosis Primary Impression: Pneumonia Qualified Codes: J18.1 - Lobar pneumonia, unspecified organism Additional Impressions: Generalized weakness COPD (chronic obstructive pulmonary disease) Qualified Codes: J44.1 - Chronic obstructive pulmonary disease with (acute) exacerbation Admitting Information Admitting Physician Requests: Admit Lupis Vargas September 07, 2017 12:50
--- NOTE | 2017-09-07 13:35 | RADRPT ---
EXAM DATE/TIME: 09/07/2017 13:06 [facility] COMPARISON: CHEST SINGLE AP, April 25, 2017, 2:44. INDICATIONS : Shortness of breath and weakness. MEDICAL HISTORY : Chronic obstructive pulmonary disease. Dementia. Diabetes mellitus type 2. Hypertension. TIA. SURGICAL HISTORY : Inguinal hernia repair. Fusion, lumbar. Tonsillectomy. ENCOUNTER: Initial ACUITY: 1 day PAIN SCORE: 0/10 LOCATION: Bilateral chest FINDINGS: A single view of the chest demonstrates some developing retrocardiac airspace disease and left basila r atelectasis. Right lung is clear. Heart size is normal. Osseous structures are intact CONCLUSION: Developing left basilar airspace disease/infiltrate. Paul Andrew MD on September 07, 2017 at 13:32 Board Certified Radiologist. This report was verified electronically.
[2017-09-07 13:38] LABS: AUTOMATED NEUTROPHIL # 18.4 TH/MM3 (1.8-7.7); BASOPHIL # 0.1 TH/MM3 (0-0.2); BASOPHIL % 0.3 % (0.0-2.0); HEMATOCRIT 42.1 % (39.0-51.0); HEMOGLOBIN 13.9 GM/DL (13.0-17.0); LYMPH % 5.2 % (9.0-44.0); LYMPHOCYTE # 1.1 TH/MM3 (1.0-4.8); MEAN CELL VOLUME 85.7 FL (80.0-100.0); MEAN CORPUSCULAR HEMOGLOBIN 28.3 PG (27.0-34.0); MEAN PLATELET VOLUME 8.5 FL (7.0-11.0); MONO % 6.7 % (0.0-8.0); MONOCYTE # 1.4 TH/MM3 (0-0.9); NEUT % 87.8 % (16.0-70.0); PLATELET COUNT 252 TH/MM3 (150-450); RED BLOOD COUNT 4.91 MIL/MM3 (4.50-5.90); RED CELL DISTRIBUTION WIDTH 15.3 % (11.6-17.2); WHITE BLOOD COUNT 20.9 TH/MM3 (4.0-11.0)
[2017-09-07 13:39] LABS: BACTERIA, URINE RARE /hpf; BILIRUBIN, URINE NEG (NEG); BLOOD, URINE NEG (NEG); GLUCOSE,URINE NEG (NEG); HYALINE CAST, URINE 3 /lpf (RARE); KETONE, URINE NEG (NEG); MUCUS URINE MANY /lpf (OCC); NITRITE,URINE NEG (NEG); URINE COLOR YELLOW (YELLW/STRAW); URINE LEUKOCYTE ESTERASE NEG (NEG)
--- NOTE | 2017-09-07 13:42 | RADRPT ---
EXAM DATE/TIME: 09/07/2017 13:23 [facility] COMPARISON: No previous studies available for comparison. INDICATIONS : Dizziness. RADIATION DOSE: 56.35 CTDIvol (mGy) MEDICAL HISTORY : Dementia. Hypertension. Chronic obstructive pulmonary disease.Diabetes SURGICAL HISTORY : None. ENCOUNTER: Initial ACUITY: 1 day PAIN SCALE: 0/10 LOCATION: cranial TECHNIQUE: Multiple contiguous axial images were obtained of the head. Using automated exposure control and adj ustment of the mA and/or kV according to patient size, radiation dose was kept as low as reasonably a chievable to obtain optimal diagnostic quality images. DICOM format image data is available electro nically for review and comparison. FINDINGS: CEREBRUM: The ventricles are normal for age. No evidence of midline shift, mass lesion, hemorrhage or acute in farction. Small lacunar infarcts present in the basal ganglia bilaterally. No extra-axial fluid colle ctions are seen. POSTERIOR FOSSA: The cerebellum and brainstem are intact. The 4th ventricle is midline. The cerebellopontine angle i s unremarkable. EXTRACRANIAL: The visualized portion of the orbits is intact. SKULL: The calvaria is intact. No evidence of skull fracture. CONCLUSION: 1. Small lacunar infarcts in the basal ganglia bilaterally. No acute intracranial abnormalities. Pool Marshall MD on September 07, 2017 at 13:37 Board Certified Radiologist. This report was verified electronically.
[2017-09-07] MEDS ORDERED: AZITHROMYCIN INJ 500 MG in SODIUM CHLOR 0.9% 250 ML INJ 250 ML IV ONE (13:45)
[2017-09-07] MEDS ORDERED: AZTREONAM INJ 2,000 MG in SODIUM CHLORIDE 0.9% INJ 100 ML IV ONE (13:45)
[2017-09-07] MEDS: RESP: ALBUTEROL 2.5 MG/IPRATROPIUM 0.5 MG NEB (SCH) INH ×2 (13:59→19:08)
[2017-09-07 14:13] LABS: ALBUMIN 2.7 GM/DL (3.4-5.0); ALKALINE PHOSPHATASE 73 U/L (45-117); ALT (GPT) 24 U/L (12-78); AST (GOT) 18 U/L (15-37); BICARBONATE 24.9 MEQ/L (21.0-32.0); BLOOD UREA NITROGEN 27 MG/DL (7-18); CALCIUM 8.3 MG/DL (8.5-10.1); CHLORIDE 106 MEQ/L (98-107); CREATININE 1.42 MG/DL (0.60-1.30); GLOMERULAR FILTRATION RATE 48 ML/MIN (>89); GLUCOSE,RANDOM 124 MG/DL (74-106); MAGNESIUM 2.2 MG/DL (1.5-2.5); SODIUM (NA) 141 MEQ/L (136-145); TOTAL PROTEIN 5.9 GM/DL (6.4-8.2); TROPONIN I LESS THAN 0.02 NG/ML (0.02-0.05)
[2017-09-07] MEDS ORDERED: LORA-392 PO (14:13)
[2017-09-07] MEDS ORDERED: BENZ100 PO (14:13)
[2017-09-07] MEDS ORDERED: ARIC5TAB6 PO (14:13)
[2017-09-07] MEDS ORDERED: CARD240C6 PO (14:13)
[2017-09-07] MEDS ORDERED: LEVE500T8 PO (14:13)
[2017-09-07] MEDS ORDERED: IPRA0.02 NEB (14:13)
[2017-09-07 14:39] LABS: PROTHROMBIN TIME - PATIENT 10.6 SEC (9.8-11.6)
[2017-09-07 14:44] LABS: LACTIC ACID SEPSIS PROTOCOL 2.6 mmol/L (0.4-2.0)
[2017-09-07] MEDS ORDERED: DEXTROSE 50% IN WATER 50 ML VIAL(D50) IV PUSH PRN (15:00)
[2017-09-07] MEDS ORDERED: BENZONATATE 100 MG CAP PO PRN (15:00)
[2017-09-07] MEDS ORDERED: GLUCAGON 1 MG/ML VIAL OTHER PRN (15:00)
[2017-09-07] MEDS ORDERED: RESP: ALBUTEROL 0.63 MG/3 ML NEB (PRN) NEB (15:00)
[2017-09-07] MEDS ORDERED: SODIUM CHLORIDE 0.9% FLUSH 10 ML FLUSH IV FLUSH PRN (15:00)
[2017-09-07] MEDS ORDERED: guaiFENesin/DEXTROMETHORPHAN 200 MG/20 MG/10 ML CUP PO PRN (15:00)
[2017-09-07] MEDS ORDERED: ONDANSETRON HCL 4 MG/2 ML VIAL IV PUSH PRN (15:00)
[2017-09-07] MEDS ORDERED: ACETAMINOPHEN 325 MG TAB PO PRN (15:00)
--- NOTE | 2017-09-07 15:43 | HHI.HP ---
HPI Service [facility] Primary Care Physician Unknown Admission Diagnosis Pneumonia, COPD exacerbation, generalized weakness Diagnoses: Chief Complaint: Generalized weakness Travel History International Travel<30 Days: No Contact w/Intl Traveler <30 Da: No Traveled to Known Affected Are: No Sepsis Criteria SIRS Criteria (2 or more): RR > 20 or PaCO2 < 32, WBC > 64119, < 4000 or > 10 % bands Sepsis Criteria (SIRS+source): Infect source susp/known Severe Sepsis (+one): Lactate >2 Criteria Outcome: Meets severe sepsis criteria History of Present Illness This is a 76-year-old male who was brought in by EMS because of generalized weakness. History is mainly taken from his . He has history of dementia unable to provide meaningful history. Patient was in his usual state of health until this morning when he was noted to be weak and unable to stand up. He also has increased confusion. His also mentioned that he has decreased oral intake the past several days. He has chronic dyspnea on exertion on 2 L nasal cannula secondary to COPD. Today he required 4 L. When EMS arrived, he was hypotensive with systolic blood pressure in the 80s and received 1 L IV fluid. In the emergency room, chest x-ray was abnormal with infiltrate in the left lung and was started on aztreonam and azithromycin. He also received nebulization and IV steroids secondary to wheezing. All other systems reviewed negative Review of Systems Except as stated in HPI: all other systems reviewed are Neg Past Family Social History Past Medical History As previously mentioned chronic respiratory failure, sleep apnea on CPAP, hypertension, hyperlipidemia, diabetes, Alzheimer's, BPH and hypothyroidism. He also has chronic bilateral lower extremity swelling Past Surgical History Umbilical hernia repair, bilateral cataract surgery, tonsillectomy Reported Medications Reported Meds & Active Scripts Active Aspirin 325 Mg Tab 325 Mg PO DAILY Reported Ipratropium Neb (Ipratropium [place]) 0.5 Mg/2.5 Ml Amp 0.5 Mg NEB BID Tessalon Perles (Benzonatate) 100 Mg Cap 100 Mg PO TID PRN Cardizem CD 24 HR (Diltiazem CD 24 HR) 240 Mg Caper 240 Mg PO DAILY Levetiracetam 500 Mg Tab 500 Mg PO BID Ativan (Lorazepam) 0.5 Mg Tab 0.5 Mg PO BID PRN Aricept (Donepezil HCl) 5 Mg Tablet 5 Mg PO HS Anti-Diarrheal (Loperamide HCl) 2 Mg Tab 2 Mg PO PRN Prednisone 5 Mg Tab 5 Mg PO BID Lipitor (Atorvastatin Calcium) 20 Mg Tab 20 Mg PO DAILY Omeprazole 20 Mg Tab 20 Mg PO DAILY Celexa (Citalopram Hydrobromide) 20 Mg Tab 20 Mg PO DAILY Lisinopril 40 Mg Tab 40 Mg PO DAILY Risperdal (Risperidone) 0.25 Mg Tab 0.25 Mg PO BID Tamsulosin (Tamsulosin HCl) 0.4 Mg Cap 0.4 Mg PO DAILY Take once a day 30 minutes after the same meal each day Namenda (Memantine) 10 Mg Tab 10 Mg PO BID Hydralazine HCl 10 Mg Tablet 10 Mg PO TID Hydrochlorothiazide 25 Mg Tab 25 Mg PO DAILY Claritin (Loratadine) 10 Mg Tablet 10 Mg PO DAILY Advair Diskus Inh (Fluticasone-Salmeterol Inh) 500-50 Mcg/Blist Aer 1 Puff INH BID Rinse mouth after use. Ventolin Hfa 18 GM Inh (Albuterol Sulfate) 90 Mcg/Act Aer 2 Puff INH Q4H PRN Levothyroxine (Levothyroxine Sodium) 112 Mcg Tab 112 Mcg PO DAILY Metformin (Metformin HCl) 500 Mg Tab 500 Mg PO DAILY With a meal Allergies: Coded Allergies: Penicillins (Verified Allergy, Unknown, 04/24/17) cephalexin (Verified Allergy, Unknown, 04/24/17) codeine (Unverified Allergy, Unknown, 04/24/17) Uncoded Allergies: DIFFICULT AIRWAY (Adverse Reaction, Severe, 01/20/17) Family History CVA Social History Occasional alcohol use does not smoke lives with his Physical Exam Vital Signs Vital Signs Date Time Temp Pulse Resp B/P (MAP) Pulse Ox O2 Delivery O2 Flow Rate FiO2 09/07/17 15:33 91 18 94 Nasal Cannula 09/07/17 14:28 97 18 121/58 (79) 92 Nasal Cannula 4.00 09/07/17 13:47 93 Nasal Cannula 3.00 09/07/17 12:45 93 Nasal Cannula 3.00 09/07/17 12:41 99.3 89 18 134/61 (85) 94 Nasal Cannula 4.00 Physical Exam GENERAL: This is a well-nourished, well-developed patient, in no apparent distress on nasal cannula. SKIN: No rashes, ecchymoses or lesions. Cool and dry. HEAD: Atraumatic. Normocephalic. No temporal or scalp tenderness. EYES: Pupils equal round and reactive. Extraocular motions intact. No scleral icterus. No injection or drainage. ENT: Nose without bleeding, purulent drainage or septal hematoma. Throat without erythema, tonsillar hypertrophy or exudate. Uvula midline. Airway patent. NECK: Trachea midline. No JVD or lymphadenopathy. Supple, nontender, no meningeal signs. CARDIOVASCULAR: Regular rate and rhythm without murmurs, gallops, or rubs. RESPIRATORY: Decreased breath sounds with bilateral expiratory wheezes GASTROINTESTINAL: Abdomen soft, non-tender, nondistended. No guarding. MUSCULOSKELETAL: Extremities without clubbing, cyanosis but with bilateral lower extremity pitting edema. No joint tenderness, effusion, or edema noted. No calf tenderness. Negative Homans sign bilaterally. NEUROLOGICAL: Awake and alert. Oriented to person only. Cranial nerves II through XII intact. Motor and sensory grossly within normal limits. Five out of 5 muscle strength in all muscle groups. Normal speech. Laboratory Laboratory Tests Test 09/07/17 13:02 09/07/17 13:07 09/07/17 14:11 09/07/17 14:12 B-Type Natriuretic Peptide 48 White Blood Count 20.9 Red Blood Count 4.91 Hemoglobin 13.9 Hematocrit 42.1 Mean Corpuscular Volume 85.7 Mean Corpuscular Hemoglobin 28.3 Mean Corpuscular Hemoglobin Concent 33.0 Red Cell Distribution Width 15.3 Platelet Count 252 Mean Platelet Volume 8.5 Neutrophils (%) (Auto) 87.8 Lymphocytes (%) (Auto) 5.2 Monocytes (%) (Auto) 6.7 Eosinophils (%) (Auto) 0.0 Basophils (%) (Auto) 0.3 Neutrophils # (Auto) 18.4 Lymphocytes # (Auto) 1.1 Monocytes # (Auto) 1.4 Eosinophils # (Auto) 0.0 Basophils # (Auto) 0.1 CBC Comment DIFF FINAL Differential Comment Urine Color YELLOW Urine Turbidity CLEAR Urine pH 8.0 Urine Specific [place] 1.026 Urine Protein 30 Urine Glucose (UA) NEG Urine Ketones NEG Urine Occult Blood NEG Urine Nitrite NEG Urine Bilirubin NEG Urine Urobilinogen LESS THAN 2.0 Urine Leukocyte Esterase NEG Urine RBC 2 Urine WBC 2 Urine Bacteria RARE Urine Hyaline Casts 3 Urine Mucus MANY Microscopic Urinalysis Comment CULT NOT INDICATED Blood Urea Nitrogen 27 Creatinine 1.42 Random Glucose 124 Total Protein 5.9 Albumin 2.7 Calcium Level 8.3 Magnesium Level 2.2 Alkaline Phosphatase 73 Aspartate Amino Transf (AST/SGOT) 18 Alanine Aminotransferase (ALT/SGPT) 24 Total Bilirubin 1.0 Sodium Level 141 Potassium Level 3.9 Chloride Level 106 Carbon Dioxide Level 24.9 Anion Gap 10 Estimat Glomerular Filtration Rate 48 Total Creatine Kinase 88 Troponin I LESS THAN 0.02 Prothrombin Time 10.6 Prothromb Time International Ratio 1.0 Activated Partial Thromboplast Time 23.1 Lactic Acid Level 2.6 Date/Time Source Procedure Growth Status 09/07/17 14:12 Blood Peripheral Aerobic Blood Culture Pending Received 09/07/17 14:12 Blood Peripheral Anaerobic Blood Culture Pending Received Result Diagram: 09/07/17 1307 09/07/17 1307 Imaging Last Impressions Chest X-Ray 09/07/17 1233 Signed Impressions: Service Date/Time: Thursday, September 07, 2017 13:06 - CONCLUSION: Developing left basilar airspace disease/infiltrate. Paul Andrew MD Head CT 09/07/17 0000 Signed Impressions: Service Date/Time: Thursday, September 07, 2017 13:23 - CONCLUSION: 1. Small lacunar infarcts in the basal ganglia bilaterally. No acute intracranial abnormalities. Pool Marshall MD Caprini VTE Risk Assessment Caprini VTE Risk Assessment: Mod/High Risk (score >= 2) Caprini Risk Assessment Model Point Value = 1 Point Value = 2 Point Value = 3 Point Value = 5 Age 41-60 Minor surgery BMI > 25 kg/m2 Swollen legs Varicose veins or History of unexplained or recurrent spontaneous Oral contraceptives or hormone replacement Sepsis (< 1 month) Serious lung disease, including pneumonia (< 1 month) Abnormal pulmonary function Acute myocardial infarction Congestive heart failure (< 1 month) History of inflammatory bowel disease Medical patient at bed rest Age 61-74 Arthroscopic surgery Major open surgery (> 45 min) Laparoscopic surgery (> 45 min) Malignancy Confined to bed (> 72 hours) Immobilizing plaster cast Central venous access Age >= 75 History of VTE Family history of VTE Factor V Leiden Prothrombin [id number] Lupus anticoagulant Anticardiolipin antibodies Elevated serum homocysteine Heparin-induced thrombocytopenia Other congenital or acquired thrombophilia Stroke (< 1 month) Elective arthroplasty Hip, pelvis, or leg fracture Acute spinal cord injury (< 1 month) Prophylaxis Regimen Total Risk Factor Score Risk Level Prophylaxis Regimen 0-1 Low Early ambulation 2 Moderate Order ONE of the following: *Sequential Compression Device (SCD) *Heparin 5000 units SQ BID 3-4 Higher Order ONE of the following medications: *Heparin 5000 units SQ TID *Enoxaparin/Lovenox 40 mg SQ daily (WT < 150 kg, CrCl > 30 mL/min) *Enoxaparin/Lovenox 30 mg SQ daily (WT < 150 kg, CrCl > 10-29 mL/min) *Enoxaparin/Lovenox 30 mg SQ BID (WT < 150 kg, CrCl > 30 mL/min) AND/OR *Sequential Compression Device (SCD) 5 or more Highest Order ONE of the following medications: *Heparin 5000 units SQ TID (Preferred with Epidurals) *Enoxaparin/Lovenox 40 mg SQ daily (WT < 150 kg, CrCl > 30 mL/min) *Enoxaparin/Lovenox 30 mg SQ daily (WT < 150 kg, CrCl > 10-29 mL/min) *Enoxaparin/Lovenox 30 mg SQ BID (WT < 150 kg, CrCl > 30 mL/min) AND *Sequential Compression Device (SCD) Assessment and Plan Problem List: (1) Pneumonia ICD Code: J18.9 - Pneumonia, unspecified organism Status: Acute Assessment and Plan This is a 76-year-old male who was brought in by EMS because of generalized weakness. Chest x-ray with left base infiltrate. He also was hypotensive with elevated lactic acid 2.6. Severe sepsis secondary to community-acquired pneumonia. He has history of penicillin allergy. Patient received IV aztreonam and IV azithromycin. We will continue IV aztreonam and start IV Levaquin after obtaining blood cultures , sputum culture, Legionella and pneumococcal urinary antigen. COPD exacerbation with history of chronic respiratory failure. Continue oxygen to keep saturations at least 92%, scheduled nebulizations and IV steroids Acute on chronic kidney disease stage II with hypotension secondary to dehydration and infection. Continue IV hydration and avoid nephrotoxins. Hold BP medications for now Multiple medical conditions of sleep apnea on CPAP, hypertension, hyperlipidemia , diabetes, Alzheimer's, BPH and hypothyroidism. He also has chronic bilateral lower extremity swelling. Continue outpatient medications as appropriate DVT prophylaxis with bilateral SCD and subcu heparin Code Status DO NOT RESUSCITATE Discussed Condition With Patient and Problem Qualifiers (1) Pneumonia: Qualified Codes: J18.1 - Lobar pneumonia, unspecified organism Patel Chopra MD September 07, 2017 15:43
[2017-09-07] MEDS: HEPARIN SODIUM - SQ 10,000 UNITS/ML VIAL SQ SCH (17:00)
[2017-09-07] MEDS: INSULIN ASPART SUPPLEMENTAL SCALE SQ SCH ×2 (17:00→20:27)
--- NOTE | 2017-09-07 17:11 | EKG ---
Date Performed: 09/07/2017 Time Performed: 12:46:51 PTAGE: 76 years EKG: Sinus rhythm WITH OCCASIONAL SUPRAVENTRICULAR PREMATURE COMPLEXES INDETERMINATE AXIS POSSIBLE RIGHT VENTRICULAR C ONDUCTION DELAY INFERIOR MYOCARDIAL INFARCTION ABNORMAL ECG INTERPRETATION BASED ON A DEFAULT AGE OF 40 YEARS PREVIOUS TRACING : 04/24/2017 17.52 DOCTOR: Juan Ramon Tucker Interpretating Date/Time 09/07/2017 17:09:46
[2017-09-07] MEDS ORDERED: SODIUM CHLOR 0.9% 1000 ML INJ 1,000 ML IV ONE (19:30)
[2017-09-07] MEDS: levETIRAcetam 500 MG TAB PO SCH (20:19)
[2017-09-07] MEDS: risperiDONE 0.25 MG TAB PO SCH (20:19)
[2017-09-07] MEDS: MEMANTINE HCL 10 MG TAB PO SCH (20:19)
[2017-09-07] MEDS: SODIUM CHLORIDE 0.9% FLUSH 10 ML FLUSH IV FLUSH SCH (20:19)
[2017-09-07] MEDS: SODIUM CHLOR 0.9% 1000 ML INJ 1,000 ML IV SCH (20:19)
[2017-09-07] MEDS: DONEPEZIL HCL 5 MG TAB PO SCH (20:19)
[2017-09-07] MEDS: BUDESONIDE-FORMOTEROL 160/4.5 MCG INHALER INH SCH (20:27)
--- NOTE | 2017-09-07 20:34 | MB ---
cc: Henrique Myers MD, Arjun D MD DATE: 09/07/2017 REQUESTING PHYSICIAN: Dr. Chopra REASON FOR CONSULTATION: Evaluation for COPD and pneumonia. HISTORY OF PRESENT ILLNESS: Mr. Lee is a pleasant 76-year-old man who is known to me from the office. He has a history of COPD. He is oxygen dependent and steroid dependent. He takes prednisone 15 mg a day. He also uses a CPAP machine with nasal pillow at home. He was doing well until yesterday. He went out with his daughter. His appetite was poor. This morning, he was feeling very weak and tired. He tried to get up and go to the bathroom and just down between the bed and chair. He was hard to be picked up. [facility] was called. The patient was still feeling very weak, had poor intake, has cough and congestion. He was brought to the hospital. He had a workup done. His chest x-ray shows he has developing basilar infiltrate or atelectasis. CT scan of the brain did not show any acute finding. His CBC showed WBC count 20.9, hemoglobin 13.9, hematocrit 42.1, MCV 85, platelet count 252. Sodium 141, potassium 3.9, chloride 106, CO2 of 24, BUN 27, creatinine 1.42. Lactic acid 4.9. PAST MEDICAL HISTORY: Significant for history of COPD, obstructive sleep apnea, dementia, history of TIA/CVA, Parkinson's disease, hyperlipidemia, diabetes mellitus and history of hernia surgery. MEDICATIONS: He is currently taking, 1. Levaquin 750 mg a day. 2. Aspirin 325 mg a day. 3. Lipitor 20 mg a day. 4. Citalopram 20 mg a day. 5. Claritin 10 mg a day 6. Protonix 20 mg. 7. Levothyroxine 112 mcg a day 8. Solu-Medrol q 12 hours 40 mg. 9. Aztreonam 2 grams q 8 hours. 10. Keppra 500 mg twice a day. 11. Aricept 5 mg a day. 12. Namenda 10 mg twice a day. 13. Risperdal 0.25 mg twice a day. 14. Symbicort twice a day. 15. Heparin 5000 q. 12 hours 16. Tessalon 100 mg 3 times a day. ALLERGIES: ALLERGIC TO PENICILLIN, CEPHALEXIN AND CODEINE. SOCIAL HISTORY: He is and history of smoking in the past. FAMILY HISTORY: Noncontributory. REVIEW OF SYSTEMS: He feels weak, walks only short distance. No DVT, pulmonary embolism. No malignancy. PHYSICAL EXAMINATION: GENERAL: Obese male, mildly short of breath. VITAL SIGNS: Blood pressure 128/64, heart rate 91, respirations 18, temperature 98. HEENT: Pupils are equal and reactive to light. He has bilateral cataract surgery done. Oral mucosa and nasal mucosa normal. NECK: Supple. JVP not raised. CHEST: Bilateral rhonchi. CARDIOVASCULAR: S1, S2 normal. ABDOMEN: Benign. EXTREMITIES: No edema. IMPRESSION: 1. Chronic obstructive pulmonary disease with exacerbation. 2. Left basal infiltrate. 3. Leukocytosis from infection and possible from steroid use. 4. Obstructive sleep apnea. 5. Dementia. 6. History of Parkinson's disease. PLAN: I discussed with the patient and his and daughter. We will continue with antibiotic, aerosol treatment, IV Solu-Medrol. Monitor his CBC. Encouraged him to use incentive spirometry acapella. Further treatment will depend on the course in the hospital. Thank you Dr. Chopra for this consult. MD LEONELA Gaona/ , 08:02 PM , 08:33 PM
[2017-09-07] MEDS: AZTREONAM INJ 2,000 MG in SODIUM CHLORIDE 0.9% INJ 100 ML IV SCH (22:11)
[2017-09-08] VITALS (8 sets, daily range): BP systolic 107–156; BP diastolic 60–70; PULSE 64–92; RESP 16–22; TEMP 97.3–98.4; O2SAT 91–96
[2017-09-08] MEDS: SODIUM CHLOR 0.9% 1000 ML INJ 1,000 ML IV SCH ×2 (00:31→12:37)
[2017-09-08] MEDS: methylPREDNISolone SOD SUCC 40 MG/1 ML VIAL IV PUSH SCH ×2 (02:33→14:17)
[2017-09-08] MEDS: HEPARIN SODIUM - SQ 10,000 UNITS/ML VIAL SQ SCH ×2 (05:52→19:31)
[2017-09-08] MEDS: LEVOTHYROXINE SODIUM 112 MCG TAB PO SCH (05:52)
[2017-09-08] MEDS: AZTREONAM INJ 2,000 MG in SODIUM CHLORIDE 0.9% INJ 100 ML IV SCH ×3 (05:52→22:12)
--- NOTE | 2017-09-08 07:47 | HHI.PR ---
Subjective Remarks Follow-up pneumonia. Patient has no complaints received fluid bolus yesterday secondary to elevated lactic acid of 4.9. Seen with Objective Vitals Vital Signs Date Time Temp Pulse Resp B/P (MAP) Pulse Ox O2 Delivery O2 Flow Rate FiO2 09/08/17 05:00 97.7 71 18 154/69 (97) 95 09/08/17 00:00 97.3 82 18 132/60 (84) 93 09/07/17 20:00 98.7 82 18 126/62 (83) 95 09/07/17 19:08 93 Nasal Cannula 3.00 09/07/17 17:36 91 18 128/64 (85) 93 Nasal Cannula 3.00 09/07/17 15:33 91 18 94 Nasal Cannula 09/07/17 14:28 97 18 121/58 (79) 92 Nasal Cannula 4.00 09/07/17 13:47 93 Nasal Cannula 3.00 09/07/17 12:45 93 Nasal Cannula 3.00 09/07/17 12:41 99.3 89 18 134/61 (85) 94 Nasal Cannula 4.00 I/O 09/07/17 09/07/17 09/07/17 09/08/17 09/08/17 09/08/17 07:00 15:00 23:00 07:00 15:00 23:00 Intake Total 1100 ml Balance 1100 ml Intake IV Total 1100 ml # Voids 2 5 Result Diagram: 09/07/17 1307 09/07/17 1307 Imaging Last Impressions Chest X-Ray 09/07/17 1233 Signed Impressions: Service Date/Time: Thursday, September 07, 2017 13:06 - CONCLUSION: Developing left basilar airspace disease/infiltrate. Paul Andrew MD Head CT 09/07/17 0000 Signed Impressions: Service Date/Time: Thursday, September 07, 2017 13:23 - CONCLUSION: 1. Small lacunar infarcts in the basal ganglia bilaterally. No acute intracranial abnormalities. Pool Marshall MD Objective Remarks GENERAL: This is a well-nourished, well-developed patient, in no apparent distress on nasal cannula. SKIN: No rashes, ecchymoses or lesions. Cool and dry. CARDIOVASCULAR: Regular rate and rhythm without murmurs, gallops, or rubs. RESPIRATORY: Decreased breath sounds with bilateral expiratory wheezes GASTROINTESTINAL: Abdomen soft, non-tender, nondistended. No guarding. MUSCULOSKELETAL: Extremities without clubbing, cyanosis but with bilateral lower extremity pitting edema. No joint tenderness, effusion, or edema noted. No calf tenderness. Negative Homans sign bilaterally. NEUROLOGICAL: Awake and alert. Oriented to person only. Cranial nerves II through XII intact. Motor and sensory grossly within normal limits. Five out of 5 muscle strength in all muscle groups. Normal speech. Procedures None A/P Problem List: (1) Pneumonia ICD Code: J18.9 - Pneumonia, unspecified organism Status: Acute Assessment and Plan This is a 76-year-old male who was brought in by EMS because of generalized weakness. Chest x-ray with left base infiltrate. He also was hypotensive with elevated lactic acid 2.6. Septic shock lactic acid 4.9 secondary to community-acquired pneumonia. He has history of penicillin allergy. Patient received IV aztreonam and IV azithromycin. We will continue IV aztreonam and start IV Levaquin after obtaining blood cultures, sputum culture, Legionella and pneumococcal urinary antigen. Patient received fluid boluses continue IV hydration repeat lactic acid COPD exacerbation with history of chronic respiratory failure. Continue oxygen to keep saturations at least 92%, scheduled nebulizations and IV steroids which might cause worsening leukocytosis and hyperglycemia Acute on chronic kidney disease stage II with hypotension secondary to dehydration and infection. Continue IV hydration and avoid nephrotoxins. Hold BP medications for now Multiple medical conditions of sleep apnea on CPAP, hypertension, hyperlipidemia , diabetes, Alzheimer's, BPH and hypothyroidism. He also has chronic bilateral lower extremity swelling. Continue outpatient medications as appropriate. Hold metformin secondary to lactic acidosis DVT prophylaxis with bilateral SCD and subcu heparin Problem Qualifiers (1) Pneumonia: Qualified Codes: J18.1 - Lobar pneumonia, unspecified organism Patel Chopra MD September 08, 2017 07:47
[2017-09-08] MEDS: RESP: ALBUTEROL 2.5 MG/IPRATROPIUM 0.5 MG NEB (SCH) INH ×4 (08:36→20:46)
[2017-09-08] MEDS: CITALOPRAM HYDROBROMIDE 20 MG TAB PO SCH (08:52)
[2017-09-08] MEDS: ATORVASTATIN 20 MG TAB PO SCH (08:52)
[2017-09-08] MEDS: MEMANTINE HCL 10 MG TAB PO SCH ×2 (08:52→20:44)
[2017-09-08] MEDS: PANTOPRAZOLE SOD 20 MG DELAYED RELEASE TAB PO SCH (08:52)
[2017-09-08] MEDS: levETIRAcetam 500 MG TAB PO SCH ×2 (08:52→20:45)
[2017-09-08] MEDS: risperiDONE 0.25 MG TAB PO SCH ×2 (08:52→20:44)
[2017-09-08] MEDS: ASPIRIN 325 MG TAB PO SCH (08:52)
[2017-09-08] MEDS: LORATADINE 10 MG TAB PO SCH (08:53)
[2017-09-08] MEDS: BUDESONIDE-FORMOTEROL 160/4.5 MCG INHALER INH SCH ×2 (08:53→22:13)
[2017-09-08] MEDS: INSULIN ASPART SUPPLEMENTAL SCALE SQ SCH ×4 (08:54→22:30)
[2017-09-08] MEDS: SODIUM CHLORIDE 0.9% FLUSH 10 ML FLUSH IV FLUSH SCH ×2 (09:00→20:45)
[2017-09-08 09:34] LABS: AUTOMATED NEUTROPHIL # 13.2 TH/MM3 (1.8-7.7); BASOPHIL % 0.1 % (0.0-2.0); HEMOGLOBIN 12.9 GM/DL (13.0-17.0); LYMPH % 5.9 % (9.0-44.0); LYMPHOCYTE # 0.8 TH/MM3 (1.0-4.8); MEAN CELL VOLUME 84.9 FL (80.0-100.0); MEAN CORPUSCULAR HEMOGLOBIN 28.7 PG (27.0-34.0); MEAN CORPUSCULAR HGB CONC 33.8 % (32.0-36.0); MEAN PLATELET VOLUME 8.3 FL (7.0-11.0); MONOCYTE # 0.3 TH/MM3 (0-0.9); PLATELET COUNT 220 TH/MM3 (150-450); RED BLOOD COUNT 4.48 MIL/MM3 (4.50-5.90); RED CELL DISTRIBUTION WIDTH 14.8 % (11.6-17.2); WHITE BLOOD COUNT 14.4 TH/MM3 (4.0-11.0)
[2017-09-08 09:59] LABS: BICARBONATE 24.6 MEQ/L (21.0-32.0); CALCIUM 8.2 MG/DL (8.5-10.1); CREATININE 0.97 MG/DL (0.60-1.30)
[2017-09-08] MEDS ORDERED: POTASSIUM CHLORIDE 10 MEQ CONTROLLED RELEASE TAB PO ONE (12:15)
[2017-09-08] MEDS ORDERED: POTASSIUM CHLORIDE 20 MEQ CONTROLLED RELEASE TAB PO ONE (12:15)
[2017-09-08 12:39] LABS: LACTIC ACID SEPSIS PROTOCOL 4.7 mmol/L (0.4-2.0)
[2017-09-08] MEDS ORDERED: SODIUM CHLOR 0.9% 1000 ML INJ 1,000 ML IV ONE ×2 (13:12)
[2017-09-08] MEDS: LORazepam 0.5 MG TAB PO PRN (14:26)
[2017-09-08] MEDS: LEVOFLOXACIN 750 MG PREMIX INJ 150 ML IV SCH (15:39)
[2017-09-08] MEDS: DONEPEZIL HCL 5 MG TAB PO SCH (20:44)
--- NOTE | 2017-09-08 21:06 | HHI.PR ---
Subjective Remarks 76 YOWM with COPD,NAI, Lung infilt Feels much better Up in chair Using his CPAP machine WBC decreasing had Fluid bolus BC negative Objective Vital Signs Vital Signs Date Time Temp Pulse Resp B/P (MAP) Pulse Ox O2 Delivery O2 Flow Rate FiO2 09/08/17 20:50 96 09/08/17 16:00 98.1 87 16 107/68 (81) 94 09/08/17 12:00 98.4 73 16 131/63 (85) 93 09/08/17 12:00 92 09/08/17 08:38 95 Nasal Cannula 2.00 09/08/17 08:00 98.1 70 16 156/70 (98) 91 09/08/17 08:00 64 09/08/17 05:00 97.7 71 18 154/69 (97) 95 09/08/17 00:00 97.3 82 18 132/60 (84) 93 I/O 09/07/17 09/07/17 09/07/17 09/08/17 09/08/17 09/08/17 07:00 15:00 23:00 07:00 15:00 23:00 Intake Total 1100 ml Balance 1100 ml Intake IV Total 1100 ml # Voids 2 5 Result Diagram: 09/08/1744 09/08/17 0744 Objective Remarks GENERAL:WBWN WM mild sob SKIN: Warm and dry. HEAD: Normocephalic. EYES: No scleral icterus. No injection or drainage. NECK: Supple, trachea midline. No JVD or lymphadenopathy. CARDIOVASCULAR: Regular rate and rhythm without murmurs, gallops, or rubs. RESPIRATORY: Breath sounds equal bilaterally. No accessory muscle use. GASTROINTESTINAL: Abdomen soft, non-tender, nondistended. MUSCULOSKELETAL: No cyanosis, or edema. BACK: Nontender without obvious deformity. No CVA tenderness. A/P Assessment and Plan IMPRESSION: 1. Chronic obstructive pulmonary disease with exacerbation. 2. Left basal infiltrate. 3. Leukocytosis from infection and possible from steroid use. 4. Obstructive sleep apnea. 5. Dementia. 6. History of Parkinson's disease. PLAN: Cont Abx Supplement 02 CPAP at night Aerosol nebs Monitor cultures DW pt, his and daughter at Henrique Myers MD September 08, 2017 21:06
[2017-09-09] VITALS (10 sets, daily range): BP systolic 137–171; BP diastolic 65–78; PULSE 69–93; RESP 16–24; TEMP 97.4–98.8; O2SAT 62–98
[2017-09-09] MEDS: methylPREDNISolone SOD SUCC 40 MG/1 ML VIAL IV PUSH SCH ×2 (02:04→13:17)
[2017-09-09] MEDS: LEVOTHYROXINE SODIUM 112 MCG TAB PO SCH (05:08)
[2017-09-09] MEDS: HEPARIN SODIUM - SQ 10,000 UNITS/ML VIAL SQ SCH ×2 (05:08→17:54)
[2017-09-09] MEDS: SODIUM CHLOR 0.9% 1000 ML INJ 1,000 ML IV SCH (05:09)
[2017-09-09] MEDS: AZTREONAM INJ 2,000 MG in SODIUM CHLORIDE 0.9% INJ 100 ML IV SCH ×3 (05:09→22:51)
[2017-09-09] MEDS: ASPIRIN 325 MG TAB PO SCH (07:59)
[2017-09-09] MEDS: MEMANTINE HCL 10 MG TAB PO SCH ×2 (07:59→20:36)
[2017-09-09] MEDS: PANTOPRAZOLE SOD 20 MG DELAYED RELEASE TAB PO SCH (07:59)
[2017-09-09] MEDS: ATORVASTATIN 20 MG TAB PO SCH (08:00)
[2017-09-09] MEDS: LORATADINE 10 MG TAB PO SCH (08:00)
[2017-09-09] MEDS: risperiDONE 0.25 MG TAB PO SCH ×2 (08:00→20:36)
[2017-09-09] MEDS: CITALOPRAM HYDROBROMIDE 20 MG TAB PO SCH (08:00)
[2017-09-09] MEDS: levETIRAcetam 500 MG TAB PO SCH ×2 (08:00→20:36)
[2017-09-09] MEDS: INSULIN ASPART SUPPLEMENTAL SCALE SQ SCH ×4 (08:01→20:36)
[2017-09-09] MEDS: SODIUM CHLORIDE 0.9% FLUSH 10 ML FLUSH IV FLUSH SCH ×2 (08:15→20:36)
[2017-09-09] MEDS: BUDESONIDE-FORMOTEROL 160/4.5 MCG INHALER INH SCH ×2 (08:15→20:37)
[2017-09-09] MEDS ORDERED: metFORMIN HCL 500 MG TAB PO SCH (09:00)
[2017-09-09] MEDS: RESP: ALBUTEROL 2.5 MG/IPRATROPIUM 0.5 MG NEB (SCH) INH ×4 (09:04→20:06)
[2017-09-09] MEDS ORDERED: cloNIDine HCL 0.1 MG TAB PO PRN (09:30)
[2017-09-09] MEDS ORDERED: ENALAPRILAT 1.25 MG/ML VIAL IV PUSH PRN (09:30)
[2017-09-09 11:56] LABS: CREATININE 0.96 MG/DL (0.60-1.30)
[2017-09-09 11:57] LABS: CALCIUM 8.1 MG/DL (8.5-10.1); MAGNESIUM 2.4 MG/DL (1.5-2.5)
[2017-09-09 11:58] LABS: BICARBONATE 25.6 MEQ/L (21.0-32.0)
[2017-09-09] MEDS: LORazepam 0.5 MG TAB PO PRN ×2 (13:08→20:36)
--- NOTE | 2017-09-09 13:19 | HHI.PR ---
Subjective Remarks Follow-up sepsis and pneumonia. He is awake and out of bed to chair. He needs maximum assist getting out of bed discussed with physical therapy. He needs inpatient rehabilitation but he is refusing. Objective Vitals Vital Signs Date Time Temp Pulse Resp B/P (MAP) Pulse Ox O2 Delivery O2 Flow Rate FiO2 09/09/17 12:35 98.4 78 18 155/72 (99) 93 09/09/17 09:04 98 Nasal Cannula 2.00 09/09/17 08:34 97.5 72 16 171/77 (108) 92 09/09/17 08:00 69 09/09/17 07:12 97.4 73 22 162/73 (102) 93 09/09/17 00:00 98.5 86 22 142/78 (99) 93 09/09/17 00:00 93 09/08/17 20:50 96 09/08/17 20:00 98.1 85 22 141/65 (90) 93 09/08/17 20:00 82 09/08/17 16:00 98.1 87 16 107/68 (81) 94 I/O 09/08/17 09/08/17 09/08/17 09/09/17 09/09/17 09/09/17 07:00 15:00 23:00 07:00 15:00 23:00 # Voids 5 Result Diagram: 09/08/17 0744 09/09/17 1048 Imaging Last Impressions Chest X-Ray 09/07/17 1233 Signed Impressions: Service Date/Time: Thursday, September 07, 2017 13:06 - CONCLUSION: Developing left basilar airspace disease/infiltrate. Paul Andrew MD Head CT 09/07/17 0000 Signed Impressions: Service Date/Time: Thursday, September 07, 2017 13:23 - CONCLUSION: 1. Small lacunar infarcts in the basal ganglia bilaterally. No acute intracranial abnormalities. Pool Marshall MD Objective Remarks GENERAL: This is a well-nourished, well-developed patient, in no apparent distress on nasal cannula. SKIN: No rashes, ecchymoses or lesions. Cool and dry. CARDIOVASCULAR: Regular rate and rhythm without murmurs, gallops, or rubs. RESPIRATORY: Decreased breath sounds with improving bilateral expiratory wheezes GASTROINTESTINAL: Abdomen soft, non-tender, nondistended. No guarding. MUSCULOSKELETAL: Extremities without clubbing, cyanosis but with bilateral lower extremity pitting edema. No joint tenderness, effusion, or edema noted. No calf tenderness. Negative Homans sign bilaterally. NEUROLOGICAL: Awake and alert. Oriented to person only. Cranial nerves II through XII intact. Motor and sensory grossly within normal limits. Five out of 5 muscle strength in all muscle groups. Normal speech. Procedures None A/P Problem List: (1) Pneumonia ICD Code: J18.9 - Pneumonia, unspecified organism Status: Acute Assessment and Plan This is a 76-year-old male who was brought in by EMS because of generalized weakness. Chest x-ray with left base infiltrate. He also was hypotensive with elevated lactic acid 2.6. Septic shock lactic acid 4.9 secondary to community-acquired pneumonia. He has history of penicillin allergy. Patient received IV aztreonam and IV azithromycin. We will continue IV aztreonam and IV Levaquin. Negative legionella and pneumococcal urinary antigen. Cultures negative to date. Patient received fluid boluses repeat lactic acid within normal limits discontinue IV hydration if tolerating p.o. COPD exacerbation with history of chronic respiratory failure. Continue oxygen to keep saturations at least 92%, scheduled nebulizations and IV steroids which might cause worsening leukocytosis and hyperglycemia Acute on chronic kidney disease stage II with hypotension secondary to dehydration and infection. Resolving discontinue IV hydration and avoid nephrotoxins. Multiple medical conditions of sleep apnea on CPAP, hypertension, hyperlipidemia , diabetes, Alzheimer's, BPH and hypothyroidism. He also has chronic bilateral lower extremity swelling. Continue outpatient medications as appropriate. Hold metformin secondary to lactic acidosis gradually restart antihypertensives because of episodes of hypertension DVT prophylaxis with bilateral SCD and subcu heparin Problem Qualifiers (1) Pneumonia: Qualified Codes: J18.1 - Lobar pneumonia, unspecified organism Patel Chopra MD September 09, 2017 13:19
--- NOTE | 2017-09-09 15:02 | HHI.DCPOC ---
Discharge Care Plan Diagnosis: (1) Pneumonia Your Health Problems Are: Difficulty with ADL Exercise Tolerance Goals to Promote Your Health * To prevent worsening of your condition and complications * To maintain your health at the optimal level Directions to Meet Your Goals Take your medications as prescribed Follow your dietary instruction Follow activity as directed Keep your appointments as scheduled Take your immunizations and boosters as scheduled If your symptoms worsen call your PCP, if no PCP go to Urgent Care Center or Emergency Room Smoking is Dangerous to Your Health. Avoid second hand smoke Call the 24-hour hour crisis hotline for domestic abuse at Patel Chopra MD September 09, 2017 15:02
--- NOTE | 2017-09-09 15:03 | HHI.DCPOC ---
Discharge Care Plan Diagnosis: (1) Pneumonia Your Health Problems Are: Difficulty with ADL Exercise Tolerance Goals to Promote Your Health * To prevent worsening of your condition and complications * To maintain your health at the optimal level Directions to Meet Your Goals Take your medications as prescribed Follow your dietary instruction Follow activity as directed Keep your appointments as scheduled Take your immunizations and boosters as scheduled If your symptoms worsen call your PCP, if no PCP go to Urgent Care Center or Emergency Room Smoking is Dangerous to Your Health. Avoid second hand smoke Call the 24-hour hour crisis hotline for domestic abuse at Patel Chopra MD September 09, 2017 15:03
--- NOTE | 2017-09-09 15:04 | HHI.FF ---
Face to Face Verification Diagnosis: (1) Pneumonia Physical Therapy Order: Evaluate and Treat, Improve ambulation, Strength and gait training Home Health Nursing Order: Medical education Signs/symptoms of disease process Medication education-adverse effect Nursing assessment with vital signs I have seen patient Tien Lee on 09/09/17. My clinical findings support the need for the requested home health care services because: Deconditioned w/ increased weakness I certify that my clinical findings support that this patient is homebound because: Unsafe to leave home unassisted Need for psychosocial assistance Patel Chopra MD September 09, 2017 15:04
[2017-09-09] MEDS: LEVOFLOXACIN 750 MG PREMIX INJ 150 ML IV SCH (15:17)
[2017-09-09] MEDS: DILTIAZEM-CD 240 MG CAP ER PO SCH (15:17)
--- NOTE | 2017-09-09 15:58 | HHI.PR ---
Subjective Remarks 76 YOWM with COPD,NAI, Lung infilt Feels much better Up in chair Using his CPAP machine Slept well, feels tired now Objective Vital Signs Vital Signs Date Time Temp Pulse Resp B/P (MAP) Pulse Ox O2 Delivery O2 Flow Rate FiO2 09/09/17 12:35 98.4 78 18 155/72 (99) 93 09/09/17 09:04 98 Nasal Cannula 2.00 09/09/17 08:34 97.5 72 16 171/77 (108) 92 09/09/17 08:00 69 09/09/17 07:12 97.4 73 22 162/73 (102) 93 09/09/17 00:00 98.5 86 22 142/78 (99) 93 09/09/17 00:00 93 09/08/17 20:50 96 09/08/17 20:00 98.1 85 22 141/65 (90) 93 09/08/17 20:00 82 09/08/17 16:00 98.1 87 16 107/68 (81) 94 I/O 09/08/17 09/08/17 09/08/17 09/09/17 09/09/17 09/09/17 07:00 15:00 23:00 07:00 15:00 23:00 # Voids 5 Result Diagram: 09/08/17 0744 09/09/17 1048 Objective Remarks GENERAL:WBWN WM mild sob SKIN: Warm and dry. HEAD: Normocephalic. EYES: No scleral icterus. No injection or drainage. NECK: Supple, trachea midline. No JVD or lymphadenopathy. CARDIOVASCULAR: Regular rate and rhythm without murmurs, gallops, or rubs. RESPIRATORY: Breath sounds equal bilaterally. No accessory muscle use. GASTROINTESTINAL: Abdomen soft, non-tender, nondistended. MUSCULOSKELETAL: No cyanosis, or edema. BACK: Nontender without obvious deformity. No CVA tenderness. A/P Assessment and Plan IMPRESSION: 1. Chronic obstructive pulmonary disease with exacerbation. 2. Left basal infiltrate. 3. Leukocytosis from infection and possible from steroid use. 4. Obstructive sleep apnea. 5. Dementia. 6. History of Parkinson's disease. PLAN: Cont Abx Supplement 02 CPAP at night Aerosol nebs Monitor cultures DW pt, his and daughter at [facility] Plans for rehab Henrique Dee MD September 09, 2017 15:58
[2017-09-09] MEDS: DONEPEZIL HCL 5 MG TAB PO SCH (20:36)
[2017-09-10] VITALS (10 sets, daily range): BP systolic 137–170; BP diastolic 64–80; PULSE 55–95; RESP 16–20; TEMP 97.7–99; O2SAT 90–96
[2017-09-10] MEDS: methylPREDNISolone SOD SUCC 40 MG/1 ML VIAL IV PUSH SCH (02:18)
[2017-09-10] MEDS: LEVOTHYROXINE SODIUM 112 MCG TAB PO SCH (06:10)
[2017-09-10] MEDS: HEPARIN SODIUM - SQ 10,000 UNITS/ML VIAL SQ SCH ×2 (06:11→17:19)
[2017-09-10] MEDS: AZTREONAM INJ 2,000 MG in SODIUM CHLORIDE 0.9% INJ 100 ML IV SCH (06:11)
--- NOTE | 2017-09-10 08:39 | HHI.PR ---
Subjective Remarks Follow-up pneumonia and sepsis. He is doing okay denies any complaints out of bed to chair smiling agrees with rehabilitation. Patient sustained a skin tear left forearm prior to admission. Objective Vitals Vital Signs Date Time Temp Pulse Resp B/P (MAP) Pulse Ox O2 Delivery O2 Flow Rate FiO2 09/10/17 06:27 98.1 79 19 167/80 (109) 93 09/10/17 00:10 95 09/10/17 00:00 98.5 55 19 162/71 (101) 93 09/09/17 21:00 78 09/09/17 20:07 97 Nasal Cannula 2.00 09/09/17 20:00 98.8 85 24 137/65 (89) 96 09/09/17 16:36 98.5 82 20 148/68 (94) 97 09/09/17 12:35 98.4 78 18 155/72 (99) 93 09/09/17 09:04 98 Nasal Cannula 2.00 I/O 09/09/17 09/09/17 09/09/17 09/10/17 09/10/17 09/10/17 07:00 15:00 23:00 07:00 15:00 23:00 Intake Total 1670 ml 100 ml Balance 1670 ml 100 ml Intake Oral 720 ml IV Total 950 ml 100 ml # Voids 3 1 # Bowel Movements 0 Result Diagram: 09/08/17 0744 09/09/17 1048 Imaging Last Impressions Chest X-Ray 09/07/17 1233 Signed Impressions: Service Date/Time: Thursday, September 07, 2017 13:06 - CONCLUSION: Developing left basilar airspace disease/infiltrate. Paul Andrew MD Head CT 09/07/17 0000 Signed Impressions: Service Date/Time: Thursday, September 07, 2017 13:23 - CONCLUSION: 1. Small lacunar infarcts in the basal ganglia bilaterally. No acute intracranial abnormalities. Pool Marshall MD Objective Remarks GENERAL: This is a well-nourished, well-developed patient, in no apparent distress on nasal cannula. SKIN: No rashes, ecchymoses or lesions. Cool and dry. CARDIOVASCULAR: Regular rate and rhythm without murmurs, gallops, or rubs. RESPIRATORY: Decreased breath sounds with improved bilateral expiratory wheezes GASTROINTESTINAL: Abdomen soft, non-tender, nondistended. No guarding. MUSCULOSKELETAL: Extremities without clubbing, cyanosis but with bilateral lower extremity pitting edema. No joint tenderness, effusion, or edema noted. No calf tenderness. Negative Homans sign bilaterally. NEUROLOGICAL: Awake and alert. Oriented to person only. Cranial nerves II through XII intact. Motor and sensory grossly within normal limits. Five out of 5 muscle strength in all muscle groups. Normal speech. Procedures None A/P Problem List: (1) Pneumonia ICD Code: J18.9 - Pneumonia, unspecified organism Status: Acute Assessment and Plan This is a 76-year-old male who was brought in by EMS because of generalized weakness. Chest x-ray with left base infiltrate. He also was hypotensive with elevated lactic acid 2.6. Septic shock lactic acid 4.9 secondary to community-acquired pneumonia. He has history of penicillin allergy. Negative legionella and pneumococcal urinary antigen. Cultures negative to date. Patient received fluid boluses repeat lactic acid within normal limits discontinue IV hydration if tolerating p.o.. Clinically improved will be switching to p.o. Levaquin thru 09/14 COPD exacerbation with history of chronic respiratory failure. Continue oxygen to keep saturations at least 92%, scheduled nebulizations and IV steroids which might cause worsening leukocytosis and hyperglycemia. Improved switch to p.o. 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 Resolving discontinue IV hydration and avoid nephrotoxins. Multiple medical conditions of sleep apnea on CPAP, hypertension, hyperlipidemia , diabetes, Alzheimer's, BPH and hypothyroidism. He also has chronic bilateral lower extremity swelling. Continue outpatient medications as appropriate. Hold metformin secondary to lactic acidosis gradually restart antihypertensives because of episodes of hypertension. Cardizem has been restarted yesterday will resume hydralazine today DVT prophylaxis with bilateral SCD and subcu heparin Discharge Planning He is stable for discharge pending insurance authorization for rehabilitation Problem Qualifiers (1) Pneumonia: Qualified Codes: J18.1 - Lobar pneumonia, unspecified organism Patel Chopra MD September 10, 2017 08:39
[2017-09-10] MEDS: INSULIN ASPART SUPPLEMENTAL SCALE SQ SCH ×4 (09:17→21:00)
[2017-09-10] MEDS: SODIUM CHLORIDE 0.9% FLUSH 10 ML FLUSH IV FLUSH SCH ×2 (09:17→21:00)
[2017-09-10] MEDS: CITALOPRAM HYDROBROMIDE 20 MG TAB PO SCH (09:18)
[2017-09-10] MEDS: ATORVASTATIN 20 MG TAB PO SCH (09:18)
[2017-09-10] MEDS: DILTIAZEM-CD 240 MG CAP ER PO SCH (09:18)
[2017-09-10] MEDS: hydrALAZINE HCL 10 MG TAB PO SCH ×3 (09:18→17:19)
[2017-09-10] MEDS: levETIRAcetam 500 MG TAB PO SCH ×2 (09:18→22:35)
[2017-09-10] MEDS: risperiDONE 0.25 MG TAB PO SCH ×2 (09:18→22:35)
[2017-09-10] MEDS: PANTOPRAZOLE SOD 20 MG DELAYED RELEASE TAB PO SCH (09:18)
[2017-09-10] MEDS: LORATADINE 10 MG TAB PO SCH (09:19)
[2017-09-10] MEDS: BUDESONIDE-FORMOTEROL 160/4.5 MCG INHALER INH SCH ×2 (09:19→22:37)
[2017-09-10] MEDS: MEMANTINE HCL 10 MG TAB PO SCH ×2 (09:19→22:35)
[2017-09-10] MEDS: ASPIRIN 325 MG TAB PO SCH (09:19)
[2017-09-10] MEDS: RESP: ALBUTEROL 2.5 MG/IPRATROPIUM 0.5 MG NEB (SCH) INH ×4 (09:49→22:11)
[2017-09-10] MEDS: LEVOFLOXACIN 750 MG TAB PO SCH (14:03)
[2017-09-10] MEDS: predniSONE 20 MG TAB PO SCH (14:03)
[2017-09-10] MEDS: LORazepam 0.5 MG TAB PO PRN ×2 (14:42→22:35)
[2017-09-10] MEDS ORDERED: LEVA750T9 PO (15:31)
[2017-09-10] MEDS ORDERED: LORA-392 PO (15:33)
[2017-09-10] MEDS ORDERED: PRED20 PO (15:33)
--- NOTE | 2017-09-10 15:34 | HHI.DS ---
Discharge Summary Admission Date September 07, 2017 at 14:53 Discharge Date: September 11, 2017 Admitting Diagnosis Pneumonia, COPD exacerbation, generalized weakness (1) Pneumonia ICD Code: J18.9 - Pneumonia, unspecified organism Diagnosis: Principal Status: Acute Procedures None Brief History - From Admission This is a 76-year-old male who was brought in by EMS because of generalized weakness. History is mainly taken from his . He has history of dementia unable to provide meaningful history. Patient was in his usual state of health until this morning when he was noted to be weak and unable to stand up. He also has increased confusion. His also mentioned that he has decreased oral intake the past several days. He has chronic dyspnea on exertion on 2 L nasal cannula secondary to COPD. Today he required 4 L. When EMS arrived, he was hypotensive with systolic blood pressure in the 80s and received 1 L IV fluid. In the emergency room, chest x-ray was abnormal with infiltrate in the left lung and was started on aztreonam and azithromycin. He also received nebulization and IV steroids secondary to wheezing. All other systems reviewed negative CBC/BMP: 09/08/17 0744 09/09/17 1048 Significant Findings Laboratory Tests Test 09/07/17 17:38 09/08/17 07:44 09/08/17 11:55 09/08/17 15:36 Lactic Acid Level 4.9 mmol/L (0.4-2.0) 4.7 mmol/L (0.4-2.0) 4.4 mmol/L (0.4-2.0) White Blood Count 14.4 TH/MM3 (4.0-11.0) Red Blood Count 4.48 MIL/MM3 (4.50-5.90) Hemoglobin 12.9 GM/DL (13.0-17.0) Hematocrit 38.0 % (39.0-51.0) Neutrophils (%) (Auto) 92.0 % (16.0-70.0) Lymphocytes (%) (Auto) 5.9 % (9.0-44.0) Neutrophils # (Auto) 13.2 TH/MM3 (1.8-7.7) Lymphocytes # (Auto) 0.8 TH/MM3 (1.0-4.8) Blood Urea Nitrogen 29 MG/DL (7-18) Random Glucose 190 MG/DL (74-106) Calcium Level 8.2 MG/DL (8.5-10.1) Potassium Level 3.2 MEQ/L (3.5-5.1) Estimat Glomerular Filtration Rate 75 ML/MIN (>89) Test 09/09/17 10:48 Blood Urea Nitrogen 29 MG/DL (7-18) Random Glucose 182 MG/DL (74-106) Calcium Level 8.1 MG/DL (8.5-10.1) Estimat Glomerular Filtration Rate 76 ML/MIN (>89) Imaging Last Impressions Chest X-Ray 09/07/17 1233 Signed Impressions: Service Date/Time: Thursday, September 07, 2017 13:06 - CONCLUSION: Developing left basilar airspace disease/infiltrate. Paul Andrew MD Head CT 09/07/17 0000 Signed Impressions: Service Date/Time: Thursday, September 07, 2017 13:23 - CONCLUSION: 1. Small lacunar infarcts in the basal ganglia bilaterally. No acute intracranial abnormalities. Pool Marshall MD PE at Discharge GENERAL: This is a well-nourished, well-developed patient, in no apparent distress on nasal cannula. SKIN: No rashes, ecchymoses or lesions. Cool and dry. CARDIOVASCULAR: Regular rate and rhythm without murmurs, gallops, or rubs. RESPIRATORY: Decreased breath sounds with improved bilateral expiratory wheezes GASTROINTESTINAL: Abdomen soft, non-tender, nondistended. No guarding. MUSCULOSKELETAL: Extremities without clubbing, cyanosis but with bilateral lower extremity pitting edema. No joint tenderness, effusion, or edema noted. No calf tenderness. Negative Homans sign bilaterally. NEUROLOGICAL: Awake and alert. Oriented to person only. Cranial nerves II through XII intact. Motor and sensory grossly within normal limits. Five out of 5 muscle strength in all muscle groups. Normal speech. Hospital Course This is a 76-year-old male who was brought in by EMS because of generalized weakness. Chest x-ray with left base infiltrate. He also was hypotensive with elevated lactic acid 2.6. Septic shock lactic acid 4.9 secondary to community-acquired pneumonia. He has history of penicillin allergy. Negative legionella and pneumococcal urinary antigen. Cultures negative to date. Patient received fluid boluses repeat lactic acid within normal limits discontinue IV hydration if tolerating p.o.. Clinically improved will be switching to p.o. Levaquin thru 09/14 COPD exacerbation with history of chronic respiratory failure. Continue oxygen to keep saturations at least 92%, scheduled nebulizations and IV steroids which might cause worsening leukocytosis and hyperglycemia. Improved switch to p.o. 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 Resolving discontinue IV hydration and avoid nephrotoxins. Multiple medical conditions of sleep apnea on CPAP, hypertension, hyperlipidemia , diabetes, Alzheimer's, BPH and hypothyroidism. He also has chronic bilateral lower extremity swelling. Continue outpatient medications as appropriate. Hold metformin secondary to lactic acidosis gradually restart antihypertensives because of episodes of hypertension. Cardizem has been restarted yesterday will resume hydralazine today DVT prophylaxis with bilateral SCD and subcu heparin Pt Condition on Discharge: Stable Discharge Disposition: Discharge to SNF Discharge Time: > 30 minutes Discharge Instructions DIET: Follow Instructions for: Heart Healthy Diet Activities you can perform: Regular-No Restrictions Activities to Avoid: Driving Follow up Referrals: PCP Follow-up - 1 Week Pulmonology - 1 Week New Orders: X-RAY CHEST PA & LAT - 6 Weeks New Medications: Levofloxacin (Levaquin) 750 Mg Tablet 750 MG PO DAILY@1100 for Infection, #4 TAB Stop date September 14, 2017 Prednisone (Prednisone) 20 Mg Tab 40 MG PO DAILY for Control Inflammation, #8 TAB last dose 09/14/17 Continued Medications: Albuterol 18 GM Inh (Ventolin Hfa 18 GM Inh) 90 Mcg/Act Aer 2 PUFF INH Q4H PRN for SHORTNESS OF BREATH, #1 INHALER 0 Refills Aspirin (Aspirin) 325 Mg Tab 325 MG PO DAILY, #30 TAB 0 Refills Atorvastatin (Lipitor) 20 Mg Tab 20 MG PO DAILY for Cholesterol Management, #30 TAB 0 Refills Benzonatate (Tessalon Perles) 100 Mg Cap 100 MG PO TID PRN for COUGH, CAP 0 Refills Citalopram (Celexa) 20 Mg Tab 20 MG PO DAILY for Control Depression, #30 TAB 0 Refills Diltiazem CD 24 HR (Cardizem CD 24 HR) 240 Mg Caper 240 MG PO DAILY, #30 CAP 0 Refills Donepezil HCl (Aricept) 5 Mg Tablet 5 MG PO HS Fluticasone-Salmeterol Inh (Advair Diskus Inh) 500-50 Mcg/Blist Aer 1 PUFF INH BID, #1 INHALER 0 Refills Rinse mouth after use. Hydralazine HCl (Hydralazine HCl) 10 Mg Tablet 10 MG PO TID Ipratropium Neb (Ipratropium Neb) 0.5 Mg/2.5 Ml Amp 0.5 MG NEB BID for Breathing Treatment, #1 NEBULE 0 Refills Levetiracetam (Levetiracetam) 500 Mg Tab 500 MG PO BID for Control Seizures, #60 TAB 0 Refills Levothyroxine (Levothyroxine) 112 Mcg Tab 112 MCG PO DAILY for Thyroid, #30 TAB 0 Refills Lisinopril (Lisinopril) 40 Mg Tab 40 MG PO DAILY for Blood Pressure Management, #30 TAB 0 Refills Loperamide (Anti-Diarrheal) 2 Mg Tab 2 MG PO PRN for DIARRHEA, TAB 0 Refills Loratadine (Claritin) 10 Mg Tablet 10 MG PO DAILY for Allergies Lorazepam (Ativan) 0.5 Mg Tab 0.5 MG PO BID PRN for ANXIETY, #6 TAB 0 Refills (This prescription has been renewed) Memantine (Namenda) 10 Mg Tab 10 MG PO BID for Alzheimer Disease, #30 TAB 0 Refills Metformin (Metformin) 500 Mg Tab 500 MG PO DAILY for Blood Sugar Management, #30 TAB 0 Refills With a meal Omeprazole (Omeprazole) 20 Mg Tab 20 MG PO DAILY, #30 TAB 0 Refills Prednisone (Prednisone) 5 Mg Tab 5 MG PO BID, TAB 0 Refills start 09/15/17 Risperidone (Risperdal) 0.25 Mg Tab 0.25 MG PO BID, #60 TAB 0 Refills Tamsulosin (Tamsulosin) 0.4 Mg Cap 0.4 MG PO DAILY for Manage Prostate Problems, #30 CAP 0 Refills Take once a day 30 minutes after the same meal each day Patel Chopra MD September 10, 2017 15:34
--- NOTE | 2017-09-10 18:08 | HHI.PR ---
Subjective Remarks 76 YOWM with COPD,NAI, Lung infilt Feels much better Up in chair Using his CPAP machine Objective Vital Signs Vital Signs Date Time Temp Pulse Resp B/P (MAP) Pulse Ox O2 Delivery O2 Flow Rate FiO2 09/10/17 16:27 98.2 90 20 160/68 (98) 95 09/10/17 12:00 97.7 76 18 155/72 (99) 90 09/10/17 09:54 96 Nasal Cannula 2.00 09/10/17 08:56 99.0 69 18 170/77 (108) 93 09/10/17 08:00 74 09/10/17 06:27 98.1 79 19 167/80 (109) 93 09/10/17 00:10 95 09/10/17 00:00 98.5 55 19 162/71 (101) 93 09/09/17 21:00 78 09/09/17 20:07 97 Nasal Cannula 2.00 09/09/17 20:00 98.8 85 24 137/65 (89) 96 I/O 09/09/17 09/09/17 09/09/17 09/10/17 09/10/17 09/10/17 07:00 15:00 23:00 07:00 15:00 23:00 Intake Total 1670 ml 100 ml 720 ml Balance 1670 ml 100 ml 720 ml Intake Oral 720 ml 720 ml IV Total 950 ml 100 ml # Voids 3 1 2 # Bowel Movements 0 Result Diagram: 09/08/17 0744 09/09/17 1048 Objective Remarks GENERAL:WBWN WM mild sob SKIN: Warm and dry. HEAD: Normocephalic. EYES: No scleral icterus. No injection or drainage. NECK: Supple, trachea midline. No JVD or lymphadenopathy. CARDIOVASCULAR: Regular rate and rhythm without murmurs, gallops, or rubs. RESPIRATORY: Breath sounds equal bilaterally. No accessory muscle use. GASTROINTESTINAL: Abdomen soft, non-tender, nondistended. MUSCULOSKELETAL: No cyanosis, or edema. BACK: Nontender without obvious deformity. No CVA tenderness. A/P Assessment and Plan IMPRESSION: 1. Chronic obstructive pulmonary disease with exacerbation. 2. Left basal infiltrate. 3. Leukocytosis from infection and possible from steroid use. 4. Obstructive sleep apnea. 5. Dementia. 6. History of Parkinson's disease. PLAN: Cont Abx Supplement 02 CPAP at night Aerosol nebs AUNDREA Plans for rehab Henrique Rush MD September 10, 2017 18:08
[2017-09-10] MEDS: DONEPEZIL HCL 5 MG TAB PO SCH (22:35)
[2017-09-11] VITALS: BP 154/67; PULSE 66; RESP 16; TEMP 97.6; O2SAT 94
[2017-09-11 04:10] VITALS: PULSE 54
[2017-09-11 05:30] VITALS: PULSE 70
[2017-09-11] MEDS: HEPARIN SODIUM - SQ 10,000 UNITS/ML VIAL SQ SCH (05:48)
[2017-09-11] MEDS: LEVOTHYROXINE SODIUM 112 MCG TAB PO SCH (05:48)
[2017-09-11 05:52] VITALS: BP 161/76; PULSE 70; RESP 18; TEMP 98.2; O2SAT 95
[2017-09-11 05:57] VITALS: PULSE 72
[2017-09-11] MEDS: RESP: ALBUTEROL 2.5 MG/IPRATROPIUM 0.5 MG NEB (SCH) INH (09:04)
[2017-09-11 09:05] VITALS: O2SAT 93
[2017-09-11] MEDS: LEVOFLOXACIN 750 MG TAB PO SCH (09:05)
[2017-09-11] MEDS: ASPIRIN 325 MG TAB PO SCH (09:05)
[2017-09-11] MEDS: predniSONE 20 MG TAB PO SCH (09:05)
[2017-09-11] MEDS: MEMANTINE HCL 10 MG TAB PO SCH (09:05)
[2017-09-11] MEDS: hydrALAZINE HCL 10 MG TAB PO SCH (09:05)
[2017-09-11] MEDS: ATORVASTATIN 20 MG TAB PO SCH (09:06)
[2017-09-11] MEDS: CITALOPRAM HYDROBROMIDE 20 MG TAB PO SCH (09:06)
[2017-09-11] MEDS: risperiDONE 0.25 MG TAB PO SCH (09:06)
[2017-09-11] MEDS: levETIRAcetam 500 MG TAB PO SCH (09:06)
[2017-09-11] MEDS: LORATADINE 10 MG TAB PO SCH (09:06)
[2017-09-11] MEDS: DILTIAZEM-CD 240 MG CAP ER PO SCH (09:06)
[2017-09-11] MEDS: PANTOPRAZOLE SOD 20 MG DELAYED RELEASE TAB PO SCH (09:06)
[2017-09-11] MEDS: BUDESONIDE-FORMOTEROL 160/4.5 MCG INHALER INH SCH (09:07)
[2017-09-11] MEDS: INSULIN ASPART SUPPLEMENTAL SCALE SQ SCH (09:07)
[2017-09-11] MEDS: SODIUM CHLORIDE 0.9% FLUSH 10 ML FLUSH IV FLUSH SCH (09:07)
[2017-09-11] MEDS: LORazepam 0.5 MG TAB PO PRN (10:16)
[2017-09-11] MEDS ORDERED: LISINOPRIL 20 MG TAB PO SCH (10:39)
[2017-09-11] MEDS ORDERED: TAMSULOSIN HCL 0.4 MG CAP PO SCH (21:00)
== END 2017-09-11 10:39 | DRG 871 ==
LOC: NEPE 12:05 → NEDA 14:53 → N05A 19:01
PROVIDERS: ADMIT Internal Medicine; ATTEND Internal Medicine
DX: A41.9 Sepsis, unspecified organism (principal); J18.9 Pneumonia, unspecified organism; R65.21 Severe sepsis with septic shock; J96.10 Chronic respiratory failure, unspecified whether with hypoxia or hypercapnia; I95.9 Hypotension, unspecified; E11.22 Type 2 diabetes mellitus with diabetic chronic kidney disease; G20 Parkinson's disease; E11.65 Type 2 diabetes mellitus with hyperglycemia; J44.0 Chronic obstructive pulmonary disease with (acute) lower respiratory infection; J44.1 Chronic obstructive pulmonary disease with (acute) exacerbation; Z99.81 Dependence on supplemental oxygen; G30.9 Alzheimer's disease, unspecified; F02.80 Dementia in other diseases classified elsewhere, unspecified severity, without behavioral disturbance, psychotic disturbance, mood disturbance, and anxiety; N40.0 Benign prostatic hyperplasia without lower urinary tract symptoms; N18.2 Chronic kidney disease, stage 2 (mild); I12.9 Hypertensive chronic kidney disease with stage 1 through stage 4 chronic kidney disease, or unspecified chronic kidney disease; E78.5 Hyperlipidemia, unspecified; E03.9 Hypothyroidism, unspecified; M79.89 Other specified soft tissue disorders; G47.33 Obstructive sleep apnea (adult) (pediatric); E86.0 Dehydration; S50.812A Abrasion of left forearm, initial encounter; X58.XXXA Exposure to other specified factors, initial encounter; M19.90 Unspecified osteoarthritis, unspecified site; E66.9 Obesity, unspecified; Z82.3 Family history of stroke; Z88.0 Allergy status to penicillin; Z79.52 Long term (current) use of systemic steroids; Z86.73 Personal history of transient ischemic attack (TIA), and cerebral infarction without residual deficits; Z87.891 Personal history of nicotine dependence; Z68.35 Body mass index [BMI] 35.0-35.9, adult; Z66 Do not resuscitate; Z79.84 Long term (current) use of oral hypoglycemic drugs
CPT/HCPCS: 70450; 71045; 80048; 80053; 81001; 82550; 82948; 83605; 83735; 83880; 84484; 85025; 85610; 85730; 87040; 87449; 93005; 94150; 94640; 94664; 94667; 94668; 96365; 96375; J0456; J1644; J1815; J1956; J2920; J2930; J7030; J7050; J7512

== ENCOUNTER 2017-09-12 00:33 | Emergency (ER) | payer MEDICARE, OTHER ==
[~2017-09-12] VITALS: Ht 172.7 cm; Wt 100.0 kg
[~2017-09-12 00:33] MED LIST changes: -AMLO10TA2 PO; -ARIC10TA9 PO; +ARIC5TAB6 PO; +BENZ100 PO; +CARD240C6 PO; -CHOL1CHW5 PO; +IPRA0.02 NEB; +LEVA750T9 PO; +LEVE500T8 PO; +LORA-392 PO; +PRED20 PO; -SYMB80AE INH
[2017-09-12 00:37] VITALS: BP 192/77; PULSE 73; RESP 20; TEMP 97.8; O2SAT 92
--- NOTE | 2017-09-12 00:45 | PD ---
HPI Chief Complaint: Fall Time Seen by Provider: 00:42 Travel History International Travel<30 days: No Contact w/Intl Traveler<30days: No History of Present Illness HPI 76-year-old male patient with history of dementia, coming from the skilled nursing , was given Ativan today for anxiety and had fallen. He states that he thinks he slipped and fell. He denies any chest pains, trouble breathing, or feeling sick before falling. He hit his head and is complaining of pains to his left face. He also has abrasions to his left knee. He denies other issues or injuries. Modifying Factors: None Associated Signs & Symptoms: Slip and fall, head injury, left knee injury Risk Factors: Elderly PFSH Past Medical History Asthma: Yes Anxiety: Yes Depression: Yes Cancer: No Cardiovascular Problems: Yes High Cholesterol: Yes Chemotherapy: No Chest Pain: Yes COPD: Yes (02 dependent and cpap machine ) Cerebrovascular Accident: No Dementia: Yes Diabetes: Yes Endocrine: No Gastrointestinal Disorders: No Genitourinary: No Headaches: No Hepatitis: No Hiatal Hernia: Yes Hypertension: Yes Immune Disorder: No Implanted Vascular Access Dvce: No Musculoskeletal: Yes (ARTHRITIS) Neurologic: Yes (DEMENTIA) Psychiatric: No Reproductive: No Respiratory: Yes Migraines: No Radiation Therapy: No Seizures: No Thyroid Disease: Yes (HYPO) Past Surgical History Abdominal Surgery: Yes (UMB. HERNIA REPAIR) AICD: No Endocrine Surgery: Yes (thryoidectomy) Eye Surgery: Yes (BILAT. CARARCT SX) Joint Replacement: No Oral Surgery: Yes (TONSILS) Pacemaker: No Tonsillectomy: Yes Other Surgery: Yes Social History Alcohol Use: Yes (OCC) Tobacco Use: No Substance Use: No Allergies-Medications (Allergen,Severity, Reaction): Coded Allergies: Penicillins (Verified Allergy, Unknown, 09/12/17) cephalexin (Verified Allergy, Unknown, 09/12/17) codeine (Unverified Allergy, Unknown, 09/12/17) Uncoded Allergies: DIFFICULT AIRWAY (Adverse Reaction, Severe, 01/20/17) Reported Meds & Prescriptions Reported Meds & Active Scripts Active Prednisone 20 Mg Tab 40 Mg PO DAILY last dose 09/14/17 Ativan (Lorazepam) 0.5 Mg Tab 0.5 Mg PO BID PRN Levaquin (Levofloxacin) 750 Mg Tablet 750 Mg PO DAILY@1100 Stop date September 14, 2017 Aspirin 325 Mg Tab 325 Mg PO DAILY Reported Ipratropium Neb (Ipratropium [place]) 0.5 Mg/2.5 Ml Amp 0.5 Mg NEB BID Tessalon Perles (Benzonatate) 100 Mg Cap 100 Mg PO TID PRN Cardizem CD 24 HR (Diltiazem CD 24 HR) 240 Mg Caper 240 Mg PO DAILY Levetiracetam 500 Mg Tab 500 Mg PO BID Aricept (Donepezil HCl) 5 Mg Tablet 5 Mg PO HS Anti-Diarrheal (Loperamide HCl) 2 Mg Tab 2 Mg PO PRN Prednisone 5 Mg Tab 5 Mg PO BID start 09/15/17 Lipitor (Atorvastatin Calcium) 20 Mg Tab 20 Mg PO DAILY Omeprazole 20 Mg Tab 20 Mg PO DAILY Celexa (Citalopram Hydrobromide) 20 Mg Tab 20 Mg PO DAILY Lisinopril 40 Mg Tab 40 Mg PO DAILY Risperdal (Risperidone) 0.25 Mg Tab 0.25 Mg PO BID Tamsulosin (Tamsulosin HCl) 0.4 Mg Cap 0.4 Mg PO DAILY Take once a day 30 minutes after the same meal each day Namenda (Memantine) 10 Mg Tab 10 Mg PO BID Hydralazine HCl 10 Mg Tablet 10 Mg PO TID Hydrochlorothiazide 25 Mg Tab 25 Mg PO DAILY Claritin (Loratadine) 10 Mg Tablet 10 Mg PO DAILY Advair Diskus Inh (Fluticasone-Salmeterol Inh) 500-50 Mcg/Blist Aer 1 Puff INH BID Rinse mouth after use. Ventolin Hfa 18 GM Inh (Albuterol Sulfate) 90 Mcg/Act Aer 2 Puff INH Q4H PRN Levothyroxine (Levothyroxine Sodium) 112 Mcg Tab 112 Mcg PO DAILY Metformin (Metformin HCl) 500 Mg Tab 500 Mg PO DAILY With a meal Review of Systems Except as stated in HPI: all other systems reviewed are Neg Physical Exam Narrative GENERAL: Well-developed elderly white male patient currently and mild distress. Awake and alert. Answering questions appropriately. SKIN: Focused skin assessment warm/dry. Notable abrasion of the left knee. HEAD: Mild left facial tenderness without obvious step-offs or bony deformities. Normocephalic. EYES: Pupils equal and round. No scleral icterus. No injection or drainage. ENT: No nasal bleeding or discharge. Mucous membranes pink and moist. NECK: Trachea midline. No JVD. Supple. CARDIOVASCULAR: Regular rate and rhythm. No murmur appreciated. RESPIRATORY: No accessory muscle use. Clear to auscultation. Breath sounds equal bilaterally. GASTROINTESTINAL: Abdomen soft, non-tender, nondistended. Hepatic and splenic margins not palpable. Pelvis: Stable and nontender to palpation. MUSCULOSKELETAL: No obvious deformities. No clubbing. No cyanosis. No edema. EXTREMITIES: No clubbing, cyanosis, or edema. No joint tenderness, effusion, or edema noted. NEUROLOGICAL: Awake and alert. No obvious cranial nerve deficits. Motor grossly within normal limits. Normal speech. PSYCHIATRIC: Appropriate mood and affect; insight and judgment normal. Data Data Last Documented VS Vital Signs Date Time Temp Pulse Resp B/P (MAP) Pulse Ox O2 Delivery O2 Flow Rate FiO2 09/12/17 00:46 20 94 Nasal Cannula 2.00 09/12/17 00:37 97.8 73 192/77 (115) Orders Orders Knee, Complete (4vws) (09/12/17 00:42) Ct Brain W/O Iv Contrast(Rout) (09/12/17 00:42) Ct Cerv Spine W/O Contrast (09/12/17 00:42) Ct Facial Bones W/O Iv Cont (09/12/17 00:45) Ed Discharge Order (09/12/17 01:34) [facility] Medical Decision Making Medical Screen Exam Complete: Yes Emergency Medical Condition: Yes Medical Record Reviewed: Yes Differential Diagnosis Slip and fall, head injury, facial injury, left knee injury Narrative Course CAT scan of the brain, C-spine did not show any signs of acute injuries. CT the facial bones did show some signs of maxillary fractures involving the anterior part of the maxillary sinus. No air-fluid level seen in the sinus, no teardrop sign. Extraocular movements are intact. He is awake, alert, and does not appear to be in any other significant distress or does not have any signs of other acute injuries. At this point, my plan would be to release him with follow-up to facial surgeon. Return for any worsening in symptoms as needed. The plan was discussed with the patient and he states understanding. Diagnosis Primary Impression: Maxillary fracture Referrals: Irvin Villalobos MD Disposition: 03 DISCHARGE TO SNF Condition: Stable Soontharothai,Rewadee MD September 12, 2017 00:45
--- NOTE | 2017-09-12 01:12 | RADRPT ---
EXAM DATE/TIME: 09/12/2017 00:54 [facility] COMPARISON: No previous studies available for comparison. INDICATIONS : Left knee pain from a fall. MEDICAL HISTORY : Hypertension. Chronic obstructive pulmonary disease. Diabetes mellitus type II. SURGICAL HISTORY : None. ENCOUNTER: Initial ACUITY: 1 day PAIN SCORE: 2/10 LOCATION: Left knee FINDINGS: Four view examination of the left knee demonstrates no evidence of fracture or dislocation. Bony min eralization is normal. The articular surfaces are intact. The suprapatellar soft tissues have a nor mal configuration. There is mild soft tissue swelling. CONCLUSION: Mild soft tissue swelling with no acute fracture or malalignment. Freedom Gill MD on September 12, 2017 at 1:09 Board Certified Radiologist. This report was verified electronically.
--- NOTE | 2017-09-12 01:12 | RADRPT ---
EXAM DATE/TIME: 09/12/2017 00:57 [facility] COMPARISON: CT BRAIN W/O CONTRAST, September 07, 2017, 13:23. INDICATIONS : Trauma. Fall. RADIATION DOSE: 56.35 CTDIvol (mGy) MEDICAL HISTORY : Dementia. Cardiovascular disease Diabetes mellitus type 2.COPD SURGICAL HISTORY : Umbilical hernia repair. ENCOUNTER: Initial ACUITY: 1 day PAIN SCALE: 5/10 LOCATION: Left cranial TECHNIQUE: Multiple contiguous axial images were obtained of the head. Using automated exposure control and adj ustment of the mA and/or kV according to patient size, radiation dose was kept as low as reasonably a chievable to obtain optimal diagnostic quality images. DICOM format image data is available electro nically for review and comparison. FINDINGS: CEREBRUM: The ventricles are normal for age. No evidence of midline shift, mass lesion, hemorrhage or acute in farction. There are multiple small old lacunar infarcts and basal ganglia. No extra-axial fluid juliana ections are seen. POSTERIOR FOSSA: The cerebellum and brainstem are intact. The 4th ventricle is midline. The cerebellopontine angle i s unremarkable. EXTRACRANIAL: The visualized portion of the orbits is intact. SKULL: The calvaria is intact. No evidence of skull fracture. CONCLUSION: 1. 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 2. No acute hemorrhage or mass effect. Freedom Gill MD on September 12, 2017 at 1:08 Board Certified Radiologist. This report was verified electronically.
--- NOTE | 2017-09-12 01:17 | RADRPT ---
EXAM DATE/TIME: 09/12/2017 00:57 [facility] COMPARISON: No previous studies available for comparison. INDICATIONS : Trauma. Fall. RADIATION DOSE: 22.75 CTDIvol (mGy) MEDICAL HISTORY : Dementia. Cardiovascular disease Diabetes mellitus type 2.COPD SURGICAL HISTORY : Umbilical hernia repair. ENCOUNTER: Initial ACUITY: 1 day PAIN SCALE: 0/10 LOCATION: neck TECHNIQUE: Volumetric scanning of the cervical spine was performed. Multiplanar reconstructions i n the sagittal, coronal and oblique axial planes were performed. Using automated exposure control a nd adjustment of the mA and/or kV according to patient size, radiation dose was kept as low as reason ably achievable to obtain optimal diagnostic quality images. DICOM format image data is available e lectronically for review and comparison. FINDINGS: The sagittal reconstructions demonstrate normal alignment and normal prevertebral soft tissues. The d ens is intact and there is a normal atlantoaxial relationship. There is mild reversal of the normal c ervical lordosis. Moderate degenerative changes present at the C3-4 through C7-T1 levels with disc sp franchesca narrowing and hypertrophic changes. The axial images demonstrate that the vertebral bodies and posterior elements are intact. The soft ti ssues are within normal limits. There is no evidence of acute fracture or malalignment. CONCLUSION: Negative trauma CT. Freedom Gill MD on September 12, 2017 at 1:13 Board Certified Radiologist. This report was verified electronically.
--- NOTE | 2017-09-12 01:21 | RADRPT ---
EXAM DATE/TIME: 09/12/2017 00:57 [facility] COMPARISON: No previous studies available for comparison. INDICATIONS : Trauma. Fall. RADIATION DOSE: 21.96 CTDIvol (mGy) MEDICAL HISTORY : Dementia. Cardiovascular disease Diabetes mellitus type 2.COPD SURGICAL HISTORY : Umbilical hernia repair. ENCOUNTER: Initial ACUITY: 1 day PAIN SCORE: 5/10 LOCATION: Left facial TECHNIQUE: Volumetric scanning of the facial bones was performed. Using automated exposure control and adjustme nt of the mA and/or kV according to patient size, radiation dose was kept as low as reasonably achiev able to obtain optimal diagnostic quality images. DICOM format image data is available electronicOppten y for review and comparison. FINDINGS: ORBITS: The orbital and infraorbital osseous structures are intact. The retroconal structures have a normal configuration. No radiopaque foreign bodies are seen. NASAL BONE: The nasal bone and maxillary spine are intact ZYGOMATIC ARCHES: Symmetric without evidence of fracture. SINUSES: There are multiple mildly depressed fractures involving the anterior left maxilla. Impression extends approximately 5-7 mm. There is mild adjacent soft tissue swelling the sinus. The ethmoid and frontal sinuses are intact. No air-fluid levels seen. NASAL CAVITY: The nasal septum is intact and midline. The lacrimal ducts are intact. SOFT TISSUES: No radiopaque foreign bodies seen. There is mild soft tissue swelling over the left maxilla. INTRACRANIAL: No intracranial air seen. CRIBIFORM PLATE: Grossly intact. CONCLUSION: 1. Multiple mildly depressed fractures involving the left anterior maxilla with overlying soft tissue swelling. No other fractures are identified. 2. The orbits are intact. Freedom Gill MD on September 12, 2017 at 1:15 Board Certified Radiologist. This report was verified electronically.
== END 2017-09-12 07:37 ==
LOC: NEPC 00:33
DX: S02.40DA Maxillary fracture, left side, initial encounter for closed fracture (principal); S80.212A Abrasion, left knee, initial encounter; W01.0XXA Fall on same level from slipping, tripping and stumbling without subsequent striking against object, initial encounter; Y92.129 Unspecified place in nursing home as the place of occurrence of the external cause; F03.90 Unspecified dementia, unspecified severity, without behavioral disturbance, psychotic disturbance, mood disturbance, and anxiety; E11.9 Type 2 diabetes mellitus without complications; I10 Essential (primary) hypertension; E03.9 Hypothyroidism, unspecified; J44.9 Chronic obstructive pulmonary disease, unspecified; E78.00 Pure hypercholesterolemia, unspecified; F41.8 Other specified anxiety disorders; Z79.84 Long term (current) use of oral hypoglycemic drugs; Z87.39 Personal history of other diseases of the musculoskeletal system and connective tissue
CPT/HCPCS: 70450; 70486; 72125; 73564; 99284